=== PATIENT | female | born 1995 | race Caucasian/White ===

== ENCOUNTER 2021-03-08 11:14 | Outpatient (REF) | payer OTHER, SELFPAY | END 2021-03-08 11:15 | disposition home or self-care (01) | LOC: HO.LAB 11:14 | PROVIDERS: Visit Provider Internal Medicine | DX: Z20.822 Contact with and (suspected) exposure to COVID-19 (principal) | CPT/HCPCS: C9803; U0003; U0005 ==

== ENCOUNTER 2021-05-04 05:03 | Emergency (ER) | payer OTHER, SELFPAY ==
--- NOTE | ~2021-05-04 | US_ITS ---
EXAMINATION: US OBSTETRICAL ULTRASOUND CLINICAL INFORMATION: New . Right lower quadrant pain. COMPARISON: None. LMP: 03/26/2021. Gestational age by maternal dates is 5 weeks 4 days. Estimated date of delivery by maternal dates is 12/31/2021. TECHNIQUE: Ultrasound of the maternal pelvis is performed using transabdominal and transvaginal transducers. Transvaginal imaging is performed due to inadequate visualization transabdominally. M-mode Doppler is also performed. FINDINGS: There is a single intrauterine gestational sac with visible yolk sac. Embryo not visible at this time. Average sac dimension is 0.77 cm consistent with 5 weeks 3 days. MATERNAL ADNEXA: The right maternal ovary measures 4.3 x 1.4 x 1.6 cm. There is a probable corpus luteum within the right ovary measuring 1.8 x 1.3 x 1.4 cm. The left maternal ovary measures 2.3 x 1.4 x 2.3 cm. There is no significant maternal adnexal mass. There is small amount of ascites in the cul-de-sac. US/US OB transvaginal IMPRESSION: 1. Single intrauterine gestational sac with visible yolk sac. Embryo not visible at this time. 2. Average gestational sac dimension 5 weeks 3 days size. 3. Probable right adnexal corpus luteum under 2 cm. Small amount of pelvic ascites.
--- NOTE | ~2021-05-04 | US_ITS ---
EXAMINATION: US OBSTETRICAL ULTRASOUND CLINICAL INFORMATION: New . Right lower quadrant pain. COMPARISON: None. LMP: 03/26/2021. Gestational age by maternal dates is 5 weeks 4 days. Estimated date of delivery by maternal dates is 12/31/2021. TECHNIQUE: Ultrasound of the maternal pelvis is performed using transabdominal and transvaginal transducers. Transvaginal imaging is performed due to inadequate visualization transabdominally. M-mode Doppler is also performed. FINDINGS: There is a single intrauterine gestational sac with visible yolk sac. Embryo not visible at this time. Average sac dimension is 0.77 cm consistent with 5 weeks 3 days. MATERNAL ADNEXA: The right maternal ovary measures 4.3 x 1.4 x 1.6 cm. There is a probable corpus luteum within the right ovary measuring 1.8 x 1.3 x 1.4 cm. The left maternal ovary measures 2.3 x 1.4 x 2.3 cm. There is no significant maternal adnexal mass. There is small amount of ascites in the cul-de-sac. US/US OB <= 14 weeks fetus IMPRESSION: 1. Single intrauterine gestational sac with visible yolk sac. Embryo not visible at this time. 2. Average gestational sac dimension 5 weeks 3 days size. 3. Probable right adnexal corpus luteum under 2 cm. Small amount of pelvic ascites.
[2021-05-04 05:18] VITALS: BP 123/66; PULSE 73; RESP 16; TEMP 36.7; O2SAT 100; BMI 21.9
--- NOTE | 2021-05-04 05:25 | ED_ITS ---
HPI - Nausea/Vomiting/Diarrhea General Chief complaint: Nausea/Vomiting/Diarrhea Stated complaint: Vomiting Time Seen by Provider: 05/04/21 05:21 Source: patient Mode of arrival: ambulatory Limitations: no limitations History of Present Illness MD elicited complaint: nausea, vomiting and abdominal pain Onset (ago): day(s) (4) Description of vomiting: watery Associated nausea: Yes Associated abdominal pain: Yes Location of pain: periumbilical and RLQ Pain consistency: constant Severity: severe Quality: aching Exacerbating factors: movement Relieving factors: none Context: other (one time in past this occurred and she found out she was ) Associated symptoms: loss of appetite, malaise, nausea/vomiting and weakness Related Data Allergies Allergy/AdvReac Type Severity Reaction Status Date / Time No Known Allergies Allergy Unverified 03/12/20 19:01 [No Known Allergies*] Review of Systems Review of Systems: Constitutional : No Weight loss, No Fever, No Chills, pos malaise, pos fatigue ENT/Mouth : No sore throat, No Rhinorrhea Eyes: No Swelling, No Redness Cardiovascular : No Chest Pain, No SOB, NoEdema Respiratory : No Cough, No Sputum, No Wheezing Gastrointestinal : Positive Nausea, Positive Vomiting, no Diarrhea, positive abdominal Pain, No Hematochezia, No Melena Genitourinary : No Dysuria, No Urinary Frequency, No Hematuria, No Urgency Musculoskeletal : No joint pain, No Myalgias, No Joint Swelling Skin : No Skin Lesions, No rash Neuro : pos Weakness, No Numbness, No Dizziness, No Headache Psych : No Anxiety/Panic, No Depression Heme/Lymph: No Bruising, No Lymphadenopathy Endocrine : No Polyuria, No Polydipsia All other systems reviewed and are negative. Gastrointestinal: Gastrointestinal: Reports nausea PMFSH Past Medical History Medical History (Updated 05/04/21 @ 06:30 by Sofia Lopez DO) Bipolar 1 disorder Social History Social History (Updated 05/04/21 @ 05:45 by Sofia Lopez DO) Patient Tobacco Use Status: Never used Tobacco Substance Use Type: Marijuana Substance Use Frequency: Occasionally Advance Directives: No Patient : No Physical Exam Vital Signs: Vital Signs: Last Vital Signs Temp 98.0 F 05/04/21 05:18 Pulse 73 05/04/21 05:18 Resp 16 11/09/21 05:18 BP 123/66 05/04/21 05:18 Pulse Ox 100 05/04/21 05:18 Body Mass Index 21.9 Appearance: Alert. Oriented X3. Mild acute distress. Eyes: Pupils equal, round and reactive to light. ENT: Pharynx moderate dry MM Neck: Normal inspection. Neck supple. CVS: Normal heart rate and rhythm. Pulses normal. Respiratory: No respiratory distress. Breath sounds normal. Abdomen: Soft and moderate ttp in RLQ some guarding, mild rebound Skin: Skin warm and dry. Normal skin color. Normal skin turgor. Extremities: No lower extremity edema. No calf ttp Neuro: Oriented X 3. No motor deficit. No sensory deficit. Course Course Course Narrative: + , possible ectopic US ordered at this time will add on type and screen signed out to Dr. Dalal pending further workup MDM - Nausea/Vomiting/Diarrhea MDM Narrative Medical decision making narrative: 25 yo female with 4 days of n/v unable to keep anything down including her medications. On exam her RLQ has moderate ttp. At this time will need labs, IVF x 2L, IV medications, test. CT scan to evaluate for appendicitis. Dispo per results and findings. Lab Data Result diagrams: 05/04/21 05:42 05/04/21 05:42 Labs: Lab Results 05/04/21 05/04/21 05/04/21 Range/Units 05:42 05:42 05:42 WBC 6.3 (4.8-10.8) X10*3/uL RBC 4.09 L (4.20-5.50) X10*6/uL Hgb 12.3 (12.0-16.0) g/dl Hct 35.8 L (37.0-47.0) % MCV 87.5 (80.0-98.0) fL MCH 30.1 (27.0-33.0) pg MCHC 34.4 (31.0-35.0) g/dl RDW 12.1 (11.0-16.0) % Plt Count 230 (160-400) X10*3/uL MPV 9.5 (9.4-12.3) fL Immature Gran % (Auto) 0.2 (0.0-0.4) % Neut % (Auto) 69.6 (45-73) % Lymph % (Auto) 24.2 (20-40) % [place] % (Auto) 5.4 (2-11) % Eos % (Auto) 0.3 (0-4) % Baso % (Auto) 0.3 (0-2) % Lymph # (Auto) 1.5 (1.2-4.9) X10*3/uL [place] # (Auto) 0.3 (0.1-1.2) X10*3/uL Eos # (Auto) 0.0 (0.0-0.4) X10*3/uL Baso # (Auto) 0.0 (0.0-0.2) X10*3/uL Abs Immat Gran (auto) 0.01 (0.00-0.03) X10*3/uL Absolute Neuts (auto) 4.4 (2.0-8.3) x10*3/uL Absolute Nucleated RBC 0.000 (0.0-0.012) X10*3/uL Nucleated RBC % (auto) 0.0 (0.0-0.2) /100WBC Sodium 138 (135-145) mmol/L Potassium 3.5 (3.3-5.1) mmol/L Chloride 105 (96-108) mmol/L Carbon Dioxide 24 (22-29) mmol/L Anion Gap 13 (12-20) BUN 16 (9-16) mg/dL Creatinine 0.80 (0.5-1.4) mg/dL Estim Creat Clear Calc 90.4 Estimated GFR > 60 Random Glucose 115 (60-115) mg/dL Calcium 10.0 (8.4-10.2) mg/dL Magnesium 1.9 (1.6-2.6) mg/dL Total Bilirubin 1.0 (0.0-1.0) mg/dL Direct Bilirubin 0.4 (0.0-0.5) mg/dL AST 13 (5-31) U/L ALT 12 (0-31) U/L Alkaline Phosphatase 45 (39-117) U/L Total Protein 7.3 (6.5-8.0) g/dL Albumin 4.7 (3.5-5.0) g/dL Lipase 27 (8-78) U/L Beta HCG, Quant 45721 mIU/mL [place] (0.60-1.20) mmol/L COVID-19 ([facility]) Negative (Negative) COVID-19 Clin Com See Note 05/04/21 Range/Units 05:49 WBC (4.8-10.8) X10*3/uL RBC (4.20-5.50) X10*6/uL Hgb (12.0-16.0) g/dl Hct (37.0-47.0) % MCV (80.0-98.0) fL MCH (27.0-33.0) pg MCHC (31.0-35.0) g/dl RDW (11.0-16.0) % Plt Count (160-400) X10*3/uL MPV (9.4-12.3) fL Immature Gran % (Auto) (0.0-0.4) % Neut % (Auto) (45-73) % Lymph % (Auto) (20-40) % [place] % (Auto) (2-11) % Eos % (Auto) (0-4) % Baso % (Auto) (0-2) % Lymph # (Auto) (1.2-4.9) X10*3/uL [place] # (Auto) (0.1-1.2) X10*3/uL Eos # (Auto) (0.0-0.4) X10*3/uL Baso # (Auto) (0.0-0.2) X10*3/uL Abs Immat Gran (auto) (0.00-0.03) X10*3/uL Absolute Neuts (auto) (2.0-8.3) x10*3/uL Absolute Nucleated RBC (0.0-0.012) X10*3/uL Nucleated RBC % (auto) (0.0-0.2) /100WBC Sodium (135-145) mmol/L Potassium (3.3-5.1) mmol/L Chloride (96-108) mmol/L Carbon Dioxide (22-29) mmol/L Anion Gap (12-20) BUN (9-16) mg/dL Creatinine (0.5-1.4) mg/dL Estim Creat Clear Calc Estimated GFR Random Glucose (60-115) mg/dL Calcium (8.4-10.2) mg/dL Magnesium (1.6-2.6) mg/dL Total Bilirubin (0.0-1.0) mg/dL Direct Bilirubin (0.0-0.5) mg/dL AST (5-31) U/L ALT (0-31) U/L Alkaline Phosphatase (39-117) U/L Total Protein (6.5-8.0) g/dL Albumin (3.5-5.0) g/dL Lipase (8-78) U/L Beta HCG, Quant mIU/mL [place] < 0.10 L (0.60-1.20) mmol/L COVID-19 ([facility]) (Negative) COVID-19 Clin Com Discharge Plan Discharge Clinical Impression: Abdominal pain, Vomiting,
[2021-05-04 05:50] LABS: MANUAL DIFF FLAG NO
[2021-05-04 05:54] LABS: Appearance Urine HAZY; Basophils Percent Auto 0.3 % (0-2); Color Urine DK YELLOW; Eosinophils Percent Auto 0.3 % (0-4); Glucose Urine UA NEG (NEG); Hematocrit 35.8 % (37.0-47.0); Hemoglobin 12.3 g/dl (12.0-16.0); Imm Gran Abs Auto 0.01 X10*3/uL (0.00-0.03); Imm Gran Pct Auto 0.2 % (0.0-0.4); Leukocyte Esterase Urine NEG (NEG); Lymphocytes Absolute Auto 1.5 X10*3/uL (1.2-4.9); Lymphocytes Percent Auto 24.2 % (20-40); Mean Corpuscular HGB Conc 34.4 g/dl (31.0-35.0); Mean Corpuscular Hemoglobin 30.1 pg (27.0-33.0); Mean Corpuscular Volume 87.5 fL (80.0-98.0); Mean Platelet Volume 9.5 fL (9.4-12.3); Monocytes Absolute Auto 0.3 X10*3/uL (0.1-1.2); Monocytes Percent Auto 5.4 % (2-11); Neutrophils Absolute Auto 4.4 x10*3/uL (2.0-8.3); Neutrophils Percent Auto 69.6 % (45-73); Nitrite Urine NEG (NEG); PH 6.5 (5.0-8.0); Platelet Count 230 X10*3/uL (160-400); Red Blood Count 4.09 X10*6/uL (4.20-5.50); Red Cell Distribution Width 12.1 % (11.0-16.0); UACC Culture Trigger NO; Urine Blood 3+ (NEG); Urine Ketones >=80 MG/DL (NEG); Urine Protein TRACE MG/DL (NEG-TRACE); White Blood Count 6.3 X10*3/uL (4.8-10.8)
[2021-05-04] MEDS: Metoclopramide HCl 10 MG/2 ML VIAL IVPUSH (06:01)
[2021-05-04] MEDS: 0.9 % Sodium Chloride 1,000 ML 999 ML IVCONT ×2 (06:01→06:09)
[2021-05-04] MEDS: diphenhydrAMINE HCL 50 MG/ML VIAL 25 MG IVPUSH (06:01)
[2021-05-04 06:10] LABS: COVID-19 Test Negative (Negative); IDNOW Serial# 9DD0AD1C
[2021-05-04 06:12] LABS: Alanine Aminotransferase 12 U/L (0-31); Albumin Level 4.7 g/dL (3.5-5.0); Alkaline Phosphatase 45 U/L (39-117); Anion Gap 13 (12-20); Aspartate Amino Transferase 13 U/L (5-31); Bilirubin Direct 0.4 mg/dL (0.0-0.5); Blood Urea Nitrogen 16 mg/dL (9-16); Carbon Dioxide 24 mmol/L (22-29); Chloride 105 mmol/L (96-108); Creatinine Clr Calc Pharmacy 90.4; Estimated Glomerular Filt Rate > 60; Glucose Random 115 mg/dL (60-115); Lipase 27 U/L (8-78); Magnesium 1.9 mg/dL (1.6-2.6); Potassium 3.5 mmol/L (3.3-5.1); Sodium 138 mmol/L (135-145); Total Protein 7.3 g/dL (6.5-8.0)
[2021-05-04 06:17] LABS: Lithium < 0.10 mmol/L (0.60-1.20)
[2021-05-04 06:18] LABS: HCG Quantitative 13534 mIU/mL
[2021-05-04 06:49] LABS: Bacteria Urine 2+ /LPF; Squamous Epithelial Cell Urine 3+ /LPF
[2021-05-04] MEDS: 0.9 % Sodium Chloride 1,000 ML 999 ML IV (07:52)
== END 2021-05-04 10:09 | disposition home or self-care (01) ==
PROVIDERS: Emergency Provider Emergency Medicine
DX: O26.891 Other specified pregnancy related conditions, first trimester (principal); R10.9 Unspecified abdominal pain; O21.9 Vomiting of pregnancy, unspecified; Z3A.01 Less than 8 weeks gestation of pregnancy; Z20.822 Contact with and (suspected) exposure to COVID-19
CPT/HCPCS: 36415; 76801; 76817; 80048; 80076; 80178; 81001; 81003; 83690; 83735; 84702; 85025; 87635; 96361; 96374; 96375; 96376; 99284; J1200; J2765

== ENCOUNTER 2021-05-04 20:23 | Emergency (ER) | payer OTHER, SELFPAY ==
[2021-05-04 21:40] VITALS: BP 111/72; PULSE 73; RESP 16; TEMP 36.8; O2SAT 100; BMI 21.7
--- NOTE | 2021-05-04 22:01 | ED.NAVMDI ---
HPI - Nausea/Vomiting/Diarrhea General Chief complaint: Nausea/Vomiting/Diarrhea Stated complaint: nausea Time Seen by Provider: 05/04/21 21:59 Source: patient and old records reviewed Mode of arrival: ambulatory Limitations: no limitations History of Present Illness MD elicited complaint: nausea and vomiting Pertinent past history: other (hyperemesis found to be 5 weeks by US in ED today ) Onset (ago): day(s) (7) Description of vomiting: food contents Associated nausea: Yes Severity: moderate Exacerbating factors: eating Relieving factors: none Context: other (prior hyperemesis) Associated symptoms: loss of appetite, malaise and nausea/vomiting Treatment prior to arrival: other (zofran without relief) Related Data Previous Rx's Medication Instructions Recorded doxylamine succinate 25 mg tablet 25 mg PO BID PRN #60 tab 05/04/21 metoclopramide HCl 10 mg tablet 10 mg PO Q6H PRN #30 tab 05/04/21 (Reglan) ondansetron HCl 4 mg tablet 4 mg PO Q8H PRN #10 tab 05/04/21 (Zofran) ondansetron HCl 4 mg tablet 4 mg PO Q8H PRN 5 Days tab 05/04/21 (Zofran) promethazine 25 mg rectal 25 mg PA Q6H PRN #12 ea 05/04/21 suppository pyridoxine (vitamin B6) 25 mg 25 mg PO BID PRN #60 tab 05/04/21 tablet Allergies Allergy/AdvReac Type Severity Reaction Status Date / Time No Known Allergies Allergy Verified 05/04/21 21:39 [No Known Allergies*] Review of Systems Review of Systems: Constitutional : No Weight loss, No Fever, No Chills ENT/Mouth : No sore throat, No Rhinorrhea Eyes: No Swelling, No Redness Cardiovascular : No Chest Pain, No SOB, NoEdema Respiratory : No Cough, No Sputum, No Wheezing Gastrointestinal : Positive Nausea, Positive Vomiting,no Diarrhea, positive abdominal Pain, No Hematochezia, No Melena Genitourinary : No Dysuria, No Urinary Frequency, No Hematuria, No Urgency Musculoskeletal : No joint pain, No Myalgias, No Joint Swelling Skin : No Skin Lesions, No rash Neuro : No Weakness, No Numbness, No Dizziness, No Headache Psych : No Anxiety/Panic, No Depression Gastrointestinal: Gastrointestinal: Reports nausea PMFSH Past Medical History Attestation statement: The following information was validated with the patient. Medical History Bipolar 1 disorder Social History Social History Alcohol intake: never Patient Tobacco Use Status: Never used Tobacco Substance Use Type: Marijuana Patient : Yes Physical Exam Vital Signs: Vital Signs: Last Vital Signs Temp 98.2 F 05/04/21 21:40 Pulse 73 05/04/21 21:40 Resp 16 05/04/21 21:40 BP 111/72 05/04/21 21:40 Pulse Ox 100 05/04/21 21:40 Body Mass Index 21.7 Appearance: Alert. Oriented X3. No acute distress. Eyes: Pupils equal, round and reactive to light. ENT: Pharynx normal. Neck: Normal inspection. Neck supple. CVS: Normal heart rate and rhythm. Pulses normal. Respiratory: No respiratory distress. Breath sounds normal. Abdomen: Soft and non-tender. Skin: Skin warm and dry. Normal skin color. Normal skin turgor. Extremities: No lower extremity edema. Neuro: Oriented X 3. No motor deficit. No sensory deficit. Course Course Course Narrative: patient requesting no IV and just PO pills MDM - Nausea/Vomiting/Diarrhea MDM Narrative Medical decision making narrative: 25 yo female with hx of bipolar and hypermesis in prior pregnancies found to be 5 weeks today confirmed IUP on US in our ED today - she reports the zofran she was sent home with is not working - at this time will try B6/doxylamine then offer reglan and phenergan suppositories if no response. Encourage OB follow up. Discharge Plan Discharge Clinical Impression: Hyperemesis gravidarum Patient Disposition: Home, Self-Care Instructions: Hyperemesis Gravidarum (ED) Additional Instructions: return to ED for any worsening symptoms or concerns take the B6 and doxylamine daily you can add on zofran if that doesn't work use reglan and if the vomiting is severe - PA phenergan Prescriptions: New promethazine 25 mg suppository 25 mg PA Q6H PRN (Reason: nausea and vomiting) Qty: 12 RF: 0 metoclopramide HCl [Reglan] 10 mg tablet 10 mg PO Q6H PRN (Reason: nausea and vomiting) Qty: 30 RF: 0 pyridoxine (vitamin B6) 25 mg tablet 25 mg PO BID PRN (Reason: nausea and vomiting) Qty: 60 RF: 0 doxylamine succinate 25 mg tablet 25 mg PO BID PRN (Reason: nausea and vomiting) Qty: 60 RF: 0 No Action ondansetron HCl [Zofran] 4 mg tablet 4 mg PO Q8H PRN (Reason: nausea and vomiting) 5 Days RF: 0 ondansetron HCl [Zofran] 4 mg tablet 4 mg PO Q8H PRN (Reason: nausea and vomiting) Qty: 10 RF: 0
[2021-05-04] MEDS: diphenhydrAMINE HCL 25 MG TABLET PO (22:38)
[2021-05-04] MEDS: Metoclopramide HCl 5 MG TABLET PO (22:38)
== END 2021-05-04 22:42 | disposition home or self-care (01) ==
LOC: HO.ED 22:18
PROVIDERS: Emergency Provider Emergency Medicine; PCP Pediatrics
DX: O21.0 Mild hyperemesis gravidarum (principal); Z3A.01 Less than 8 weeks gestation of pregnancy; O21.9 Vomiting of pregnancy, unspecified
CPT/HCPCS: 99283; Q0163

== ENCOUNTER 2021-05-22 02:53 | Emergency (ER) | payer OTHER, SELFPAY ==
[2021-05-22 03:14] VITALS: BP 140/54; PULSE 86; RESP 16; TEMP 36.5; O2SAT 97; BMI 21.2
[2021-05-22] MEDS: ondansetron HCL 4 MG/2 ML VIAL IVPUSH ×2 (03:31→05:51)
[2021-05-22] MEDS: 0.9 % Sodium Chloride 1,000 ML 999 ML IV ×2 (03:31→05:51)
[2021-05-22 03:32] LABS: MANUAL DIFF FLAG NO
[2021-05-22 03:33] LABS: Basophils Percent Auto 0.2 % (0-2); Eosinophils Percent Auto 0.3 % (0-4); Hematocrit 35.1 % (37.0-47.0); Hemoglobin 12.1 g/dl (12.0-16.0); Imm Gran Abs Auto 0.02 X10*3/uL (0.00-0.03); Imm Gran Pct Auto 0.2 % (0.0-0.4); Lymphocytes Absolute Auto 1.8 X10*3/uL (1.2-4.9); Lymphocytes Percent Auto 19.1 % (20-40); Mean Corpuscular HGB Conc 34.5 g/dl (31.0-35.0); Mean Corpuscular Hemoglobin 30.1 pg (27.0-33.0); Mean Corpuscular Volume 87.3 fL (80.0-98.0); Mean Platelet Volume 9.9 fL (9.4-12.3); Monocytes Absolute Auto 0.4 X10*3/uL (0.1-1.2); Monocytes Percent Auto 4.6 % (2-11); Neutrophils Absolute Auto 7.2 x10*3/uL (2.0-8.3); Neutrophils Percent Auto 75.6 % (45-73); Platelet Count 231 X10*3/uL (160-400); Red Blood Count 4.02 X10*6/uL (4.20-5.50); Red Cell Distribution Width 11.9 % (11.0-16.0); White Blood Count 9.5 X10*3/uL (4.8-10.8)
[2021-05-22 03:35] LABS: Appearance Urine HAZY; Color Urine YELLOW; Glucose Urine UA NEG (NEG); Leukocyte Esterase Urine TRACE (NEG); Nitrite Urine NEG (NEG); PH 8.5 (5.0-8.0); Specific Gravity - Urine 1.015 (1.005-1.025); UACC Culture Trigger YES; Urine Blood 2+ (NEG); Urine Ketones NEG (NEG); Urine Protein TRACE MG/DL (NEG-TRACE)
[2021-05-22 03:38] LABS: UPreg QC Valid YES; Urine Pregnancy POSITIVE (NEGATIVE)
[2021-05-22 03:46] LABS: Amorphous Sediment Urine 2+ /LPF; Bacteria Urine 2+ /LPF; Mucus Urine 2+ /LPF; Squamous Epithelial Cell Urine 2+ /LPF
--- NOTE | 2021-05-22 03:49 | ED.GENADULT ---
HPI - General Adult General Chief complaint: General Medical Stated complaint: 8 weeks preg, cant stop vomiting Time Seen by Provider: 05/22/21 03:05 Source: patient Mode of arrival: ambulatory History of Present Illness HPI narrative: 25-year-old female, , LMP 03/26/2021 and recent ultrasound approximately 1 week ago presents with persistent nausea and vomiting despite trying multiple antiemetics. Although she did have nausea and vomiting during her 1st she states that this is ended up being far worse. She denies any vaginal spotting beyond what she has been experiencing at baseline and has been informed that she has a small subchorionic bleed but otherwise denies any urinary pain/burning/frequency, or diarrhea. Related Data Previous Rx's Medication Instructions Recorded doxylamine succinate 25 mg tablet 25 mg PO BID PRN #60 tab 05/04/21 metoclopramide HCl 10 mg tablet 10 mg PO Q6H PRN #30 tab 05/04/21 (Reglan) ondansetron HCl 4 mg tablet 4 mg PO Q8H PRN #10 tab 05/04/21 (Zofran) ondansetron HCl 4 mg tablet 4 mg PO Q8H PRN 5 Days tab 05/04/21 (Zofran) promethazine 25 mg rectal 25 mg CO Q6H PRN #12 ea 05/04/21 suppository pyridoxine (vitamin B6) 25 mg 25 mg PO BID PRN #60 tab 05/04/21 tablet cephalexin 500 mg capsule 500 mg PO Q12H 5 Days #10 cap 05/22/21 ondansetron HCl 4 mg tablet 4 mg PO Q8H PRN #14 tab 05/22/21 (Zofran) pyridoxine (vitamin B6) 25 mg 25 mg PO TID 14 Days #42 tab 05/22/21 tablet Allergies Allergy/AdvReac Type Severity Reaction Status Date / Time No Known Allergies Allergy Verified 05/04/21 21:39 [No Known Allergies*] Review of Systems Review of Systems: Pertinent positives and negatives as stated in HPI 10 point review of systems is otherwise negative. [facility] Past Medical History Source: nursing notes reviewed Medical History Bipolar 1 disorder Social History Social History Alcohol intake: never Patient Tobacco Use Status: Never used Tobacco Use of substances other than those prescribed or required for medical reasons: No Substance Use Type: Marijuana Advance Directives: No Advance Directives Information Provided: Yes Patient : Yes Physical Exam Vital Signs: Vital Signs: Last Vital Signs Temp 97.6 F 05/22/21 06:17 Pulse 67 05/22/21 06:17 Resp 14 05/22/21 06:17 BP 105/64 05/22/21 06:17 Pulse Ox 100 05/22/21 06:17 Body Mass Index 21.2 VITAL SIGNS: Reviewed. GENERAL: Well developed, well nourished, in no acute distress. HEAD: Normocephalic/atraumatic EYES: PERRLA, EOMI OROPHARYNX: no oral lesions noted, posterior pharynx clear, dry mucosa NECK: Supple, no adenopathy LUNGS: Normal breath sounds. No adventitious sounds or accessory muscle use. SpO2<97> CARDIOVASCULAR: Regular rate and rhythm without noted murmurs ABDOMEN: Soft, non-tender, non-distended with bowel sounds. MUSCULOSKELETAL: No tenderness, deformities, or effusions noted on gross inspection. EXTREMITIES: No cyanosis, clubbing or edema. SKIN: Inspection of the skin reveals no rashes NEUROLOGIC: Alert and oriented x 4. Strength and sensation to light touch were grossly intact x 4. Course Course Course Narrative: 25-year-old female with history and clinical presentation consistent with hyperemesis and likely corresponding mild dehydration. Will attempt to use combination antiemetics as well as fluid hydration and p.o. challenge. Review of all investigations consistent with UTI and dehydration. At receiving combination antiemetics as well as 2 L of fluid hydration and initial antibiotics for the UTI patient is feeling much better and is stable for discharge to home. All results and findings as well as plan for treating her nausea have been discussed with the patient at bedside. Medical Decision Making Lab Data Result diagrams: 05/22/21 03:26 05/22/21 03:26 Labs: Lab Results 05/22/21 05/22/21 05/22/21 Range/Units 03:21 03:21 03:26 WBC 9.5 (4.8-10.8) X10*3/uL RBC 4.02 L (4.20-5.50) X10*6/uL Hgb 12.1 (12.0-16.0) g/dl Hct 35.1 L (37.0-47.0) % MCV 87.3 (80.0-98.0) fL MCH 30.1 (27.0-33.0) pg MCHC 34.5 (31.0-35.0) g/dl RDW 11.9 (11.0-16.0) % Plt Count 231 (160-400) X10*3/uL MPV 9.9 (9.4-12.3) fL Immature Gran % (Auto) 0.2 (0.0-0.4) % Neut % (Auto) 75.6 H (45-73) % Lymph % (Auto) 19.1 L (20-40) % [place] % (Auto) 4.6 (2-11) % Eos % (Auto) 0.3 (0-4) % Baso % (Auto) 0.2 (0-2) % Lymph # (Auto) 1.8 (1.2-4.9) X10*3/uL [place] # (Auto) 0.4 (0.1-1.2) X10*3/uL Eos # (Auto) 0.0 (0.0-0.4) X10*3/uL Baso # (Auto) 0.0 (0.0-0.2) X10*3/uL Abs Immat Gran (auto) 0.02 (0.00-0.03) X10*3/uL Absolute Neuts (auto) 7.2 (2.0-8.3) x10*3/uL Absolute Nucleated RBC 0.000 (0.0-0.012) X10*3/uL Nucleated RBC % (auto) 0.0 (0.0-0.2) /100WBC Sodium (135-145) mmol/L Potassium (3.3-5.1) mmol/L Chloride (96-108) mmol/L Carbon Dioxide (22-29) mmol/L Anion Gap (12-20) BUN (9-16) mg/dL Creatinine (0.5-1.4) mg/dL Estim Creat Clear Calc Estimated GFR Random Glucose (60-115) mg/dL Calcium (8.4-10.2) mg/dL Total Bilirubin (0.0-1.0) mg/dL AST (5-31) U/L ALT (0-31) U/L Alkaline Phosphatase (39-117) U/L Total Protein (6.5-8.0) g/dL Albumin (3.5-5.0) g/dL Urine Color YELLOW Urine Appearance HAZY Urine pH 8.5 H (5.0-8.0) Ur Specific [place] 1.015 (1.005-1.025) Urine Protein TRACE (NEG-TRACE) MG/DL Urine Glucose (UA) NEG (NEG) MG/DL Urine Ketones NEG (NEG) MG/DL Urine Blood 2+ H (NEG) Urine Nitrite NEG (NEG) Ur Leukocyte Esterase TRACE H (NEG) Urine RBC 1-4 (0) /HPF Urine WBC 1-4 (0-4) /HPF Ur Squamous Epith Cells 2+ /LPF Amorphous Sediment 2+ /LPF Urine Bacteria 2+ /LPF Urine Mucus 2+ /LPF Urine Test POSITIVE H (NEGATIVE) 05/22/21 Range/Units 03:26 WBC (4.8-10.8) X10*3/uL RBC (4.20-5.50) X10*6/uL Hgb (12.0-16.0) g/dl Hct (37.0-47.0) % MCV (80.0-98.0) fL MCH (27.0-33.0) pg MCHC (31.0-35.0) g/dl RDW (11.0-16.0) % Plt Count (160-400) X10*3/uL MPV (9.4-12.3) fL Immature Gran % (Auto) (0.0-0.4) % Neut % (Auto) (45-73) % Lymph % (Auto) (20-40) % [place] % (Auto) (2-11) % Eos % (Auto) (0-4) % Baso % (Auto) (0-2) % Lymph # (Auto) (1.2-4.9) X10*3/uL [place] # (Auto) (0.1-1.2) X10*3/uL Eos # (Auto) (0.0-0.4) X10*3/uL Baso # (Auto) (0.0-0.2) X10*3/uL Abs Immat Gran (auto) (0.00-0.03) X10*3/uL Absolute Neuts (auto) (2.0-8.3) x10*3/uL Absolute Nucleated RBC (0.0-0.012) X10*3/uL Nucleated RBC % (auto) (0.0-0.2) /100WBC Sodium 139 (135-145) mmol/L Potassium 3.8 (3.3-5.1) mmol/L Chloride 105 (96-108) mmol/L Carbon Dioxide 24 (22-29) mmol/L Anion Gap 14 (12-20) BUN 10 (9-16) mg/dL Creatinine 0.72 (0.5-1.4) mg/dL Estim Creat Clear Calc 100.5 Estimated GFR > 60 Random Glucose 111 (60-115) mg/dL Calcium 9.7 (8.4-10.2) mg/dL Total Bilirubin 0.5 (0.0-1.0) mg/dL AST 11 (5-31) U/L ALT 9 (0-31) U/L Alkaline Phosphatase 41 (39-117) U/L Total Protein 7.1 (6.5-8.0) g/dL Albumin 4.4 (3.5-5.0) g/dL Urine Color Urine Appearance Urine pH (5.0-8.0) Ur Specific [place] (1.005-1.025) Urine Protein (NEG-TRACE) MG/DL Urine Glucose (UA) (NEG) MG/DL Urine Ketones (NEG) MG/DL Urine Blood (NEG) Urine Nitrite (NEG) Ur Leukocyte Esterase (NEG) Urine RBC (0) /HPF Urine WBC (0-4) /HPF Ur Squamous Epith Cells /LPF Amorphous Sediment /LPF Urine Bacteria /LPF Urine Mucus /LPF Urine Test (NEGATIVE) Discharge Plan Discharge Clinical Impression: Hyperemesis gravidarum, UTI (urinary tract infection) Patient Disposition: Home, Self-Care Instructions: Hyperemesis Gravidarum (ED) Additional Instructions: 1. Increase fluid hydration especially with water. 2. Take the vitamin B6 scheduled throughout the day and then take the Zofran in between those scheduled events. 3. Stick to a very bland diet. 4. Follow-up with your OB Return to the ER for worsening symptoms. Prescriptions: New pyridoxine (vitamin B6) 25 mg tablet 25 mg PO TID 14 Days Qty: 42 RF: 0 ondansetron HCl [Zofran] 4 mg tablet 4 mg PO Q8H PRN (Reason: nausea and vomiting) Qty: 14 RF: 0 cephalexin 500 mg capsule 500 mg PO Q12H 5 Days Qty: 10 RF: 0 No Action promethazine 25 mg suppository 25 mg CO Q6H PRN (Reason: nausea and vomiting) Qty: 12 RF: 0 metoclopramide HCl [Reglan] 10 mg tablet 10 mg PO Q6H PRN (Reason: nausea and vomiting) Qty: 30 RF: 0 pyridoxine (vitamin B6) 25 mg tablet 25 mg PO BID PRN (Reason: nausea and vomiting) Qty: 60 RF: 0 doxylamine succinate 25 mg tablet 25 mg PO BID PRN (Reason: nausea and vomiting) Qty: 60 RF: 0 ondansetron HCl [Zofran] 4 mg tablet 4 mg PO Q8H PRN (Reason: nausea and vomiting) 5 Days RF: 0 ondansetron HCl [Zofran] 4 mg tablet 4 mg PO Q8H PRN (Reason: nausea and vomiting) Qty: 10 RF: 0 Referrals: Sherlyn Riggs MD [Primary Care Provider] - 2 days
[2021-05-22 03:51] LABS: Alanine Aminotransferase 9 U/L (0-31); Albumin Level 4.4 g/dL (3.5-5.0); Alkaline Phosphatase 41 U/L (39-117); Anion Gap 14 (12-20); Aspartate Amino Transferase 11 U/L (5-31); Bilirubin Total 0.5 mg/dL (0.0-1.0); Blood Urea Nitrogen 10 mg/dL (9-16); Calcium 9.7 mg/dL (8.4-10.2); Carbon Dioxide 24 mmol/L (22-29); Chloride 105 mmol/L (96-108); Creatinine Clr Calc Pharmacy 100.5; Estimated Glomerular Filt Rate > 60; Glucose Random 111 mg/dL (60-115); Potassium 3.8 mmol/L (3.3-5.1); Sodium 139 mmol/L (135-145); Total Protein 7.1 g/dL (6.5-8.0)
[2021-05-22 05:11] VITALS: BP 117/61; PULSE 70; RESP 14; TEMP 36.7; O2SAT 100
--- NOTE | 2021-05-22 05:25 | PC.NURSE ---
pt still has slight nausea. provider is aware. Will continue to monitor. no new orders at this time.
--- NOTE | 2021-05-22 05:54 | PC.NURSE ---
medicated per mar.
--- NOTE | 2021-05-22 06:15 | PC.NURSE ---
Vitamin B6 unavailable in Er. Called pharmacy will be bring down.
[2021-05-22 06:17] VITALS: BP 105/64; PULSE 67; RESP 14; TEMP 36.4; O2SAT 100
[2021-05-22] MEDS: Pyridoxine HCl (Vitamin B6) 50 MG TABLET PO (06:21)
[2021-05-22] MEDS: cefTRIAXone sodium 1 GM in 0.9 % Sodium Chloride 50 ML IV (07:03)
== END 2021-05-22 07:46 | disposition home or self-care (01) ==
PROVIDERS: Emergency Provider Student in an Organized Health Care Education/Training Program; PCP Pediatrics
DX: O21.0 Mild hyperemesis gravidarum (principal); O23.41 Unspecified infection of urinary tract in pregnancy, first trimester; N39.0 Urinary tract infection, site not specified; Z3A.08 8 weeks gestation of pregnancy
CPT/HCPCS: 36415; 80053; 81001; 81025; 85025; 87086; 96361; 96365; 96375; 96376; 99284; J0696; J2405

== ENCOUNTER 2021-05-23 04:32 | Observation (INO) | payer OTHER, SELFPAY ==
--- NOTE | ~2021-05-23 | US_ITS ---
EXAMINATION: US OBSTETRICAL ULTRASOUND CLINICAL INFORMATION: Intractable nausea. History of subchorionic bleed. COMPARISON: Pelvic ultrasound from 05/04/2021. LMP: 03/26/2021. Gestational age by maternal dates is 8 weeks, 2 days. Estimated date of delivery by maternal dates is 12/31/2021. TECHNIQUE: Sonographic imaging of the pelvis was performed using a transabdominal transducer. FINDINGS: There is a single intrauterine gestational sac with visible yolk sac, single fetus, and cardiac activity. Amniotic fluid volume is normal. Small amount of crescentic subchorionic hemorrhage is observed posteriorly. There is a posterior placenta. Cervix is closed with length of approximately 3.8 cm. The myometrial echotexture is normal. No evidence of leiomyoma. HR: 169 beats per minute. CRL (crown rump length): 1.73 cm (8 weeks, 2 days) CARRIE (estimated date of delivery): 01/01/2020. MATERNAL ADNEXA: The ovaries have normal size and echotexture. No adnexal mass. The right ovary is 3.2 x 1.6 x 1.5 cm and left ovary 3 x 2.4 x 1.6 cm. FREE FLUID: None detected. US/US OB <= 14 weeks fetus IMPRESSION: * Single viable intrauterine gestation is observed. There is concordance between the clinical and ultrasound dates. The ultrasound estimated gestational age is 8 weeks, 2 days. * Small subchorionic hemorrhage is present.
[2021-05-23 04:49] VITALS: BMI 21.4
[2021-05-23 04:54] VITALS: BP 108/73; PULSE 83; RESP 16; TEMP 36.7; O2SAT 99
[2021-05-23 06:01] VITALS: BP 124/54; PULSE 65
[2021-05-23 06:02] VITALS: BP 124/56; PULSE 73
[2021-05-23 06:03] VITALS: BP 116/70; PULSE 84
[2021-05-23 06:04] VITALS: BP 124/54; PULSE 65; RESP 22
[2021-05-23] MEDS: 0.9 % Sodium Chloride 1,000 ML 999 ML IV (06:12)
--- NOTE | 2021-05-23 06:30 | ED.NAVMDI ---
HPI - Nausea/Vomiting/Diarrhea General Chief complaint: Nausea/Vomiting/Diarrhea Stated complaint: Vomiting/?Dehydrated Time Seen by Provider: 05/23/21 05:45 Source: patient Mode of arrival: ambulatory History of Present Illness HPI Narrative: 25-year-old female , who presents with ent nausea and vomiting despite attempting multiple antiemetics. Patient states this that she is feeling very stressed out and has become even more anxious. She endorses feeling overwhelmed and ?does not know what to do?. Otherwise, she states feeling lightheaded but otherwise endorses baseline vaginal spotting which she attributes to her recent findings on ultrasound of a subchorionic bleed and denies any shortness of breath/chest pain/palpitations. Related Data Previous Rx's Medication Instructions Recorded doxylamine succinate 25 mg tablet 25 mg PO BID PRN #60 tab 05/04/21 metoclopramide HCl 10 mg tablet 10 mg PO Q6H PRN #30 tab 05/04/21 (Reglan) ondansetron HCl 4 mg tablet 4 mg PO Q8H PRN #10 tab 05/04/21 (Zofran) ondansetron HCl 4 mg tablet 4 mg PO Q8H PRN 5 Days tab 05/04/21 (Zofran) promethazine 25 mg rectal 25 mg TN Q6H PRN #12 ea 05/04/21 suppository pyridoxine (vitamin B6) 25 mg 25 mg PO BID PRN #60 tab 05/04/21 tablet cephalexin 500 mg capsule 500 mg PO Q12H 5 Days #10 cap 05/22/21 ondansetron HCl 4 mg tablet 4 mg PO Q8H PRN #14 tab 05/22/21 (Zofran) pyridoxine (vitamin B6) 25 mg 25 mg PO TID 14 Days #42 tab 05/22/21 tablet Allergies Allergy/AdvReac Type Severity Reaction Status Date / Time No Known Allergies Allergy Verified 05/04/21 21:39 [No Known Allergies*] Review of Systems Review of Systems: Pertinent positives and negatives as stated in HPI 10 point review of systems is otherwise negative. [facility] Past Medical History Source: nursing notes reviewed Medical History Bipolar 1 disorder Social History Social History Alcohol intake: never Patient Tobacco Use Status: Never used Tobacco Substance Use Type: Marijuana Advance Directives: No Patient : Yes Physical Exam Vital Signs: Vital Signs: Last Vital Signs Temp 98.1 F 05/23/21 04:54 Pulse 65 05/23/21 06:04 Resp 22 H 05/23/21 06:04 BP 124/54 L 05/23/21 06:04 Pulse Ox 99 05/23/21 04:54 Body Mass Index 21.4 VITAL SIGNS: Reviewed. GENERAL: Well developed, well nourished, in no acute distress. HEAD: Normocephalic/atraumatic EYES: PERRLA, EOMI OROPHARYNX: no oral lesions noted, posterior pharynx clear and non-erythematous without noted tonsillar enlargement/erythema/exudates NECK: Supple, no adenopathy LUNGS: Normal breath sounds. No adventitious sounds or accessory muscle use. SpO2<99> CARDIOVASCULAR: Regular rate and rhythm without noted murmurs ABDOMEN: Soft, non-tender, non-distended with bowel sounds. SKIN: Inspection of the skin reveals no rashes NEUROLOGIC: Alert and oriented x 4. Strength and sensation to light touch were grossly intact x 4. PSYCH: Anxious Course Course Course Narrative: This is a 25-year-old female with history and clinical presentation of persistent vomiting despite different antiemetics. Patient had a full laboratory workup yesterday and was tolerating saltines and water at the time of discharge, and there did not appear to be objective findings to suggest persistent, ongoing nausea and vomiting and no evidence to suggest dehydration (ketones in the urine or electrolyte abnormalities). 0604: I discussed the case with Dr. Ingram who recommends IV fluids, repeat ultrasound, TSH, Rh status. If unable to control vomiting patient will need to be admitted. Signed out to Dr Dalal. Discharge Plan Discharge Clinical Impression: Intractable vomiting with nausea Patient Disposition: Still a Patient Prescriptions: No Action promethazine 25 mg suppository 25 mg TN Q6H PRN (Reason: nausea and vomiting) Qty: 12 RF: 0 metoclopramide HCl [Reglan] 10 mg tablet 10 mg PO Q6H PRN (Reason: nausea and vomiting) Qty: 30 RF: 0 pyridoxine (vitamin B6) 25 mg tablet 25 mg PO BID PRN (Reason: nausea and vomiting) Qty: 60 RF: 0 doxylamine succinate 25 mg tablet 25 mg PO BID PRN (Reason: nausea and vomiting) Qty: 60 RF: 0 pyridoxine (vitamin B6) 25 mg tablet 25 mg PO TID 14 Days Qty: 42 RF: 0 ondansetron HCl [Zofran] 4 mg tablet 4 mg PO Q8H PRN (Reason: nausea and vomiting) Qty: 14 RF: 0 cephalexin 500 mg capsule 500 mg PO Q12H 5 Days Qty: 10 RF: 0 ondansetron HCl [Zofran] 4 mg tablet 4 mg PO Q8H PRN (Reason: nausea and vomiting) 5 Days RF: 0 ondansetron HCl [Zofran] 4 mg tablet 4 mg PO Q8H PRN (Reason: nausea and vomiting) Qty: 10 RF: 0
--- NOTE | 2021-05-23 06:52 | PC.NURSE ---
0620 patient refused blood to be drawn told this PCT the blood can be drawn later when I'm ready
--- NOTE | 2021-05-23 06:53 | ECG_ITS ---
Test Reason : CHECK QTC Blood Pressure : / mmHG Vent. Rate : 075 BPM Atrial Rate : 075 BPM P-R Int : 130 ms QRS Dur : 090 ms QT Int : 402 ms P-R-T Axes : 030 008 031 degrees QTc Int : 448 ms Sinus rhythm with occasional Premature ventricular complexes Otherwise normal ECG No previous ECGs available Referred By: Fannie Edwards Electronically Signed By:KELTON DIANA MD
--- NOTE | 2021-05-23 07:02 | PC.NURSE ---
Pt alert and oriented x4, calm and cooperative. Pt denies blood to be drawn at this time, pt educated on needing lab draw and pt continues to refuse now.
[2021-05-23 07:07] LABS: Influenza A PCR NEGATIVE (Negative); Influenza B PCR NEGATIVE (Negative); Resp Syncy Virus RNA Qual PCR NEGATIVE (Negative); SARS COV2 PCR INHOUSE NEGATIVE (Negative)
--- NOTE | 2021-05-23 07:15 | PM.GYNCN ---
DIAMOND MERCHANT - CN: HPI Data of Consult Consult date: 05/23/21 Primary Care Provider: Unknown Physician Consult Narrative Narrative: I was consulted on Staci Benoit was is a 25 year old female presented emergency room with nausea and vomiting despite attempting multiple antiemetics.? The patient has baseline vaginal spotting, last ultrasound was done on 05/04 which showed a intrauterine gestation 5 weeks and 3 days of gestation making her by today at 9 weeks of gestation cc:: CC: OB [facility] Past Medical History Medical History Bipolar 1 disorder Social History Social History Alcohol intake: never Patient Tobacco Use Status: Never used Tobacco Substance Use Type: Marijuana Advance Directives: No Patient : Yes Meds Allergies Allergy/AdvReac Type Severity Reaction Status Date / Time No Known Allergies Allergy Verified 05/04/21 21:39 [No Known Allergies*] [facility] MERCHANT Physical Exam Vitals Vital signs: Temp Pulse Resp BP Pulse Ox 98.1 F 65 22 H 124/54 L 99 05/23/21 04:54 05/23/21 06:04 05/23/21 06:04 05/23/21 06:04 05/23/21 04:54 Body Mass Index 21.4 Assessment and Plan (1) Nausea/vomiting in : Status: Acute Since the patient has tried vitamin B6, Zofran, Phenergan, and Reglan and did not control her nausea and vomiting, I Recommended to Dr. Beckford on the phone the following recommendation: TSH, CBC, electrolytes, liver function test, repeat ultrasound, Rh status, if negative RhoGAM 300 mcg IM, Pepcid and Compazine IV and IV hydration, if ketones are present in the urine check urine dip Q void till ketones clear, if lab abnormalities are suspicious for cholelithiasis, or hyperthyroidism, treat accordingly, if nausea and vomiting is not controlled , the patient would need admission. I did not seenor examine the patient, I was consulted on the phone regarding the patient's management.
[2021-05-23] MEDS: Famotidine/PF 20 MG/2 ML VIAL IVPUSH (07:26)
[2021-05-23] MEDS: ondansetron HCL 4 MG/2 ML VIAL IVPUSH (09:16)
[2021-05-23] MEDS: Prochlorperazine Edisylate 10 MG/2 ML VIAL 5 MG IV (12:17)
[2021-05-23] MEDS: 0.9 % Sodium Chloride 1,000 ML 999 ML IVCONT (12:17)
--- NOTE | 2021-05-23 12:20 | PC.NURSE ---
no nausea, dry heaves or vomiting noted since this rn arrival at 0700. pt medicated per emar.
--- NOTE | 2021-05-23 13:05 | P.HPOB_ITS ---
[employer] - H&P: HPI History of Present Illness Narrative: Staci Benoit is a 25 year old female who presented emergency room with nausea and vomiting in spite of treatment with multiple antiemetics including Zofran, Phenergan, vitamin B6, Reglan and doxylamine. The patient came emergency room today was given Reglan IV and Pepcid then Compazine was attempted still the patient was vomiting. Ultrasound showed 8 weeks and 2 days of gestation intrauterine with a small subchorionic hemorrhage. Rh positive. The patient had a CBC and chemistry done yesterday was normal. TSH ordered today is still pending. Since having some vaginal spotting no other associated symptoms, abdominal pain fever or chills. OB PMF Past Medical History Medical History Bipolar 1 disorder Social History Social History Alcohol intake: never Patient Tobacco Use Status: Never used Tobacco Substance Use Type: Marijuana Advance Directives: No Patient : Yes Meds Allergies Allergy/AdvReac Type Severity Reaction Status Date / Time No Known Allergies Allergy Verified 05/04/21 21:39 [No Known Allergies*] Active Medications: Current Medications Promethazine HCl 12.5 mg/ (Sodium Chloride) 50.5 mls @ 202 mls/hr IV QID PRN PRN Reason: Nausea and Vomiting Home Medications Medication Instructions Recorded Confirmed Last Taken Type clonazepam 1 mg tablet 1 tab PO BID PRN 05/23/21 05/23/21 Unknown History [employer] Physical Exam Vitals Vital signs: Temp Pulse Resp BP Pulse Ox 98.1 F 65 22 H 124/54 L 99 05/23/21 04:54 05/23/21 06:04 05/23/21 06:04 05/23/21 06:04 05/23/21 04:54 Body Mass Index 21.4 Assessment and Plan (1) Hyperemesis gravidarum: Status: Acute Will admit with IV hydration, and dip Q void till ketones clear if positive, CBC, chemistry, AST ALT, calcium, magnesium try Phenergan IV 0.5 mg Q 6 hours p.r.n. nausea and vomiting. If not control nausea and vomiting will attempt treatment with Dramamine 50 mg in 50 cc to 4-6 p.r.n.. Since Reglan, , Zofran, Compazine, vitamin B6 and doxylamine did not control nausea and vomiting it Phenergan and/or Dramamine does not stop nausea and vomiting, next step will be to treat with methyl prednisolone 16 mg mg IV Q 8 for 3 days and then will taper over 2 weeks, if abnormal electrolytes will correct accordingly, any suspicion of cholelithiasis/cholecystitis or appendicitis will treat accordingly. 14:13> received a call from Daniella Yousif RN patient is requesting to leave AMA I asked if the patient can wait for 15 minutes, for me to come in to relationship counselor regarding the consequences of leaving AMA with dehydration and hyperemesis gravidarum, the patient stated that she is not willing to wait and is willing to speak on the phone instead; I spoke with the patient on the phone, and I explained to the patient the risks of not treating hyperemesis gravidarum and its potential consequences including but not limited to : Dehydration, e lectrolyte imbalance, acute kidney injury, negative impact on , spontaneous , arrhythmias , and others. I recommended for the patient to stay in-house for IV hydration, antiemetic treatment; explained to the patient the plan of treatment including CBC, chemistry, liver function test, rule out possible sources of infections : Urine, appendicitis, cholelithiasis, cholecystitis and others, treat with IV antiemetic, if fails treat with corticosteroid. Patient stated that she is not willing to stay in house would like to go back home, Explained to the patient to come back in case of persistent of nausea and vomiting. The patient verbalized understanding and signed the against medical advice paperwork.
--- NOTE | 2021-05-23 13:27 | PHA.MEDREC ---
Pharmacy Consult ? Medication Reconciliation Pharmacy has completed the medication reconciliation. Patient reports not taking abx yet or doxylamine since just filled yesterday. Karla LangleyD
--- NOTE | 2021-05-23 13:32 | PHA.MEDREC ---
Pharmacy Consult ? Medication Reconciliation Pharmacy has completed the medication reconciliation. PT has not started abx for uti yet. Unclear if she is still taking clonazepam since she was very anxious during time of med rec. Patient reported stopping lithium and oxcarbazepine due to (self stopped, per pt md never got back to her). Karla LangleyD
[2021-05-23 13:39] LABS: Alanine Aminotransferase 9 U/L (0-31); Aspartate Amino Transferase 14 U/L (5-31); Calcium 9.5 mg/dL (8.4-10.2); Magnesium 1.8 mg/dL (1.6-2.6)
--- NOTE | 2021-05-23 13:53 | PC.NURSE ---
contact made with md mccray states no anxiety med at this time
--- NOTE | 2021-05-23 15:57 | MHC.CM.PN ---
Pt signed out AMA prior to CM assessment
== END 2021-05-23 14:30 | disposition other institution (70) ==
LOC: HO.ED 06:44 → HO.EDOVER 13:00
PROVIDERS: Admitting Provider Obstetrics & Gynecology; Emergency Provider Student in an Organized Health Care Education/Training Program; Visit Provider Obstetrics & Gynecology
DX: O21.0 Mild hyperemesis gravidarum (principal); O26.851 Spotting complicating pregnancy, first trimester; O99.341 Other mental disorders complicating pregnancy, first trimester; F32.9 Major depressive disorder, single episode, unspecified; O99.321 Drug use complicating pregnancy, first trimester; F12.20 Cannabis dependence, uncomplicated; Z3A.09 9 weeks gestation of pregnancy; Z79.899 Other long term (current) drug therapy; Z53.29 Procedure and treatment not carried out because of patient's decision for other reasons
CPT/HCPCS: 0241U; 36415; 76801; 82310; 83735; 84443; 84450; 84460; 84702; 86900; 86901; 93005; 96361; 96374; 96375; 99218; 99284; 99285; J2405

== ENCOUNTER 2021-08-10 00:10 | Emergency (ER) | payer MEDICARE, MEDICAID, SELFPAY ==
[2021-08-10 00:18] VITALS: BP 128/83; PULSE 101; RESP 16; TEMP 36.4; O2SAT 100; BMI 20.9
--- NOTE | 2021-08-10 00:24 | PC.NURSE ---
pt has no vaginal discharge. pt can feel the fetus moving. pt is sticking her fingers down her throat to relieve the nausea feeling.
[2021-08-10 01:36] LABS: MANUAL DIFF FLAG NO
[2021-08-10] MEDS: 0.9 % Sodium Chloride 1,000 ML 999 ML IV (01:36)
[2021-08-10] MEDS: ondansetron HCL 4 MG/2 ML VIAL IVPUSH ×2 (01:36→04:22)
[2021-08-10 01:37] LABS: Basophils Percent Auto 0.2 % (0-2); Eosinophils Percent Auto 0.1 % (0-4); Hemoglobin 11.7 g/dl (12.0-16.0); Imm Gran Abs Auto 0.02 X10*3/uL (0.00-0.03); Imm Gran Pct Auto 0.2 % (0.0-0.4); Lymphocytes Absolute Auto 1.6 X10*3/uL (1.2-4.9); Lymphocytes Percent Auto 17.1 % (20-40); Mean Corpuscular HGB Conc 35.5 g/dl (31.0-35.0); Mean Corpuscular Hemoglobin 30.6 pg (27.0-33.0); Mean Corpuscular Volume 86.4 fL (80.0-98.0); Mean Platelet Volume 10.2 fL (9.4-12.3); Monocytes Absolute Auto 0.3 X10*3/uL (0.1-1.2); Monocytes Percent Auto 3.4 % (2-11); Neutrophils Absolute Auto 7.4 x10*3/uL (2.0-8.3); Platelet Count 235 X10*3/uL (160-400); Red Blood Count 3.82 X10*6/uL (4.20-5.50); Red Cell Distribution Width 11.9 % (11.0-16.0); White Blood Count 9.4 X10*3/uL (4.8-10.8)
--- NOTE | 2021-08-10 01:56 | ED_ITS ---
HPI - Nausea/Vomiting/Diarrhea General Chief complaint: Nausea/Vomiting/Diarrhea Stated complaint: 19 Weeks /Vomiting Time Seen by Provider: 08/10/21 01:28 Source: patient Mode of arrival: ambulatory Limitations: no limitations History of Present Illness HPI Narrative: 25-year-old female 19 weeks came in for evaluation of nausea and vomiting. Patient's symptoms started 2 days ago, patient declined any possibility of ingesting bad food, no sick contacts, no recent travel, no recent use of antibiotic. Patient usually gets vomiting with her current and also with her previous , patient had multiple ED visits for similar presentation. Patient complaining of epigastric pain only with vomiting, no vaginal bleeding or spotting, no abdominal cramps colics. Related Data Home Medications Medication Instructions Recorded Confirmed clonazepam 1 mg tablet 1 tab PO BID PRN 05/23/21 05/23/21 Previous Rx's Medication Instructions Recorded doxylamine succinate 25 mg tablet 25 mg PO BID PRN #60 tab 05/04/21 metoclopramide HCl 10 mg tablet 10 mg PO Q6H PRN #30 tab 05/04/21 (Reglan) promethazine 25 mg rectal 25 mg UT Q6H PRN #12 ea 05/04/21 suppository cephalexin 500 mg capsule 500 mg PO Q12H 5 Days #10 cap 05/22/21 ondansetron HCl 4 mg tablet 4 mg PO Q8H PRN #14 tab 05/22/21 (Zofran) pyridoxine (vitamin B6) 25 mg 25 mg PO TID 14 Days #42 tab 05/22/21 tablet ondansetron 4 mg disintegrating 4 mg PO BEDTIME PRN 3 Days #10 tab 08/10/21 tablet Allergies Allergy/AdvReac Type Severity Reaction Status Date / Time No Known Allergies Allergy Verified 05/04/21 21:39 [No Known Allergies*] Review of Systems Review of Systems: All other systems are reviewed and are negative Constitutional: Reports as per HPI and Reports no additional constitutional complaints Eyes: Reports as per HPI and Reports no additional eye complaints Reports system reviewed and no additional complaints, except as documented Cardiovascular: Reports as per HPI and Reports no additional cardiovascular complaints Respiratory: Reports as per HPI and Reports no additional respiratory complaints Gastrointestinal: Reports as per HPI and Reports no additional gastrointestinal complaints Genitourinary: Reports no additional female genitourinary complaints Musculoskeletal: Reports no additional musculoskeletal complaints Skin/Breast: Reports system reviewed and no additional complaints, except as docu Psychiatric: Reports no additional psychiatric complaints Endocrine: Reports no additional endocrine complaints Hematologic/Lymphatic: Reports no additional hematologic/lymphatic complaints Allergic/Immunologic: Reports no additional allergic/immunologic complaints Reports system reviewed and no additional complaints, except as documented and Reports Abnormal speech present [facility] Past Medical History Medical History Bipolar 1 disorder Social History Social History Alcohol intake: never Patient Tobacco Use Status: Never used Tobacco Substance Use Type: Marijuana Advance Directives: No Patient : Yes Physical Exam Vital Signs: Vital Signs: Last Vital Signs Temp 97.6 F 08/10/21 00:18 Pulse 101 H 08/10/21 00:18 Resp 16 08/10/21 00:18 BP 128/83 08/10/21 00:18 Pulse Ox 100 08/10/21 00:18 BMI result Body Mass Index 20.9 vital signs have been reviewed as appeared to be correct. Blood pressure normal. Heart rate elevated. Respiration rate normal. Temperature normal. Oxygen saturation normal. Appearance: Alert. Oriented X3. No acute distress. Head: Normal external exam. Normocephalic. Atraumatic. No Pérez signs noted. No raccoon eyes noted Eyes: PERRLA. EOMI. Conjunctiva and sclera normal. Eyelids normal. ENT: TM's Normal. Pharynx normal. Uvula midline. Moist mucous membranes. No trismus noted. No drooling noted. No muffled voice noted. Neck: Normal inspection. Neck supple. FROM. No adenopathy. Thyroid Normal. No meningeal signs. No neck mass noted. CVS: Normal heart rate and rhythm. Heart sound normal. No murmurs noted. Pulses normal throughout. Respiratory: No respiratory distress. Painless inspiration. Breath sounds normal. No wheezes/rales/rhonchi noted. Chest nontender. No accessory muscle usage noted or decreased air movement noted. Abdomen: Soft , mild epigastric tenderness. Bowel sounds normal in all 4 quadrants. No distention noted. No organomegaly noted. No visible injury noted. Pelvic exam: Deferred per patient patient has no vaginal discharge or bleeding or abdominal contractions. Back: No CVA tenderness. Full range of motion noted. Skin: Skin warm and dry. Normal skin color. Normal skin turgor. No rashes/lesions/lacerations noted. Extremities: No lower extremity edema. Extremities exhibit normal range of motion. Extremities nontender. Neuro: Oriented X 3. Cranial nerve exam: II-XII are grossly intact No motor deficit. No sensory deficit. Reflexes normal. Course Course Course Narrative: assessment and plan. 25-year-old female always having vomiting problem in her pregnancies, came in with vomiting, symptoms were controlled with IV hydration and Zofran. Patient now is calm able to take a nap in the emergency department, patient is able to tolerate fluid intake. Will discharge to follow-up with PCP. MDM - Nausea/Vomiting/Diarrhea Lab Data Attestation: I reviewed the patient's lab results. Result diagrams: 08/10/21 01:32 08/10/21 01:32 Labs: Lab Results 08/10/21 08/10/21 Range/Units 01:32 01:32 WBC 9.4 (4.8-10.8) X10*3/uL RBC 3.82 L (4.20-5.50) X10*6/uL Hgb 11.7 L (12.0-16.0) g/dl Hct 33.0 L (37.0-47.0) % MCV 86.4 (80.0-98.0) fL MCH 30.6 (27.0-33.0) pg MCHC 35.5 H (31.0-35.0) g/dl RDW 11.9 (11.0-16.0) % Plt Count 235 (160-400) X10*3/uL MPV 10.2 (9.4-12.3) fL Immature Gran % (Auto) 0.2 (0.0-0.4) % Neut % (Auto) 79.0 H (45-73) % Lymph % (Auto) 17.1 L (20-40) % Childress % (Auto) 3.4 (2-11) % Eos % (Auto) 0.1 (0-4) % Baso % (Auto) 0.2 (0-2) % Lymph # (Auto) 1.6 (1.2-4.9) X10*3/uL [place] # (Auto) 0.3 (0.1-1.2) X10*3/uL Eos # (Auto) 0.0 (0.0-0.4) X10*3/uL Baso # (Auto) 0.0 (0.0-0.2) X10*3/uL Abs Immat Gran (auto) 0.02 (0.00-0.03) X10*3/uL Absolute Neuts (auto) 7.4 (2.0-8.3) x10*3/uL Absolute Nucleated RBC 0.000 (0.0-0.012) X10*3/uL Nucleated RBC % (auto) 0.0 (0.0-0.2) /100WBC Sodium 137 (135-145) mmol/L Potassium 3.9 (3.3-5.1) mmol/L Chloride 105 (96-108) mmol/L Carbon Dioxide 19 L (22-29) mmol/L Anion Gap 17 (12-20) BUN 10 (9-16) mg/dL Creatinine 0.70 (0.5-1.4) mg/dL Estim Creat Clear Calc 103.4 Estimated GFR > 60 Random Glucose 149 H (60-115) mg/dL Calcium 9.9 (8.4-10.2) mg/dL Total Bilirubin 0.6 (0.0-1.0) mg/dL Direct Bilirubin 0.2 (0.0-0.5) mg/dL AST 14 (5-31) U/L ALT 7 (0-31) U/L Alkaline Phosphatase 48 (39-117) U/L Total Protein 6.9 (6.5-8.0) g/dL Albumin 3.9 (3.5-5.0) g/dL Lipase 31 (8-78) U/L Discharge Plan Discharge Clinical Impression: Nausea/vomiting in Patient Disposition: Home, Self-Care Instructions: Nausea and Vomiting in (ED) Prescriptions: New ondansetron 4 mg tablet,disintegrating 4 mg PO BEDTIME PRN (Reason: nausea and vomiting) 3 Days Qty: 10 0RF No Action promethazine 25 mg suppository 25 mg UT Q6H PRN (Reason: nausea and vomiting) Qty: 12 0RF metoclopramide HCl [Reglan] 10 mg tablet 10 mg PO Q6H PRN (Reason: nausea and vomiting) Qty: 30 0RF doxylamine succinate 25 mg tablet 25 mg PO BID PRN (Reason: nausea and vomiting) Qty: 60 0RF pyridoxine (vitamin B6) 25 mg tablet 25 mg PO TID 14 Days Qty: 42 0RF ondansetron HCl [Zofran] 4 mg tablet 4 mg PO Q8H PRN (Reason: nausea and vomiting) Qty: 14 0RF Rx Instructions: Take the Zofran between your B6 doses. cephalexin 500 mg capsule 500 mg PO Q12H 5 Days Qty: 10 0RF Rx Instructions: Patient didnt start taking yet for uti clonazepam 1 mg tablet 1 tab PO BID PRN (Reason: Anxiety) 0RF Referrals: Physician,Unknown J [Primary Care Provider] - 2 days
[2021-08-10 01:57] LABS: Alanine Aminotransferase 7 U/L (0-31); Albumin Level 3.9 g/dL (3.5-5.0); Alkaline Phosphatase 48 U/L (39-117); Anion Gap 17 (12-20); Aspartate Amino Transferase 14 U/L (5-31); Bilirubin Direct 0.2 mg/dL (0.0-0.5); Bilirubin Total 0.6 mg/dL (0.0-1.0); Blood Urea Nitrogen 10 mg/dL (9-16); Calcium 9.9 mg/dL (8.4-10.2); Carbon Dioxide 19 mmol/L (22-29); Chloride 105 mmol/L (96-108); Creatinine Clr Calc Pharmacy 103.4; Estimated Glomerular Filt Rate > 60; Glucose Random 149 mg/dL (60-115); Lipase 31 U/L (8-78); Potassium 3.9 mmol/L (3.3-5.1); Sodium 137 mmol/L (135-145); Total Protein 6.9 g/dL (6.5-8.0)
[2021-08-10 04:22] VITALS: BP 109/55; PULSE 75; RESP 18; TEMP 36.7; O2SAT 99
== END 2021-08-10 04:32 | disposition home or self-care (01) ==
PROVIDERS: Emergency Provider Emergency Medicine
DX: O21.9 Vomiting of pregnancy, unspecified (principal); Z3A.19 19 weeks gestation of pregnancy
CPT/HCPCS: 36415; 80048; 80076; 83690; 85025; 96361; 96374; 96376; 99284; J2405

== ENCOUNTER 2024-11-22 17:01 | Emergency (ER) | payer MEDICARE, MEDICAID, SELFPAY ==
[2024-11-22 17:11] VITALS: BP 110/60; PULSE 115; O2SAT 96
[2024-11-22 17:14] VITALS: BP 110/53; PULSE 106; RESP 16; TEMP 36.8; O2SAT 99
--- OUTSIDE RECORDS SUMMARY | 2024-11-22 17:20 | XMS_ITS | Encounter Summary ---
Author Organization [facility] Address [address] [place] [address] Care Team Providers Care [employer] Tutor Name Role Phone Daniele Villafuerte MD Primary Care Provider [phone] Encounter Details Date Type Department Care Team (Late st Contact Info) Description 11/10/2024 Lab Requisition [facility] - Main Lab [address] [place] [address] Carline Gutierrez [address] [place] [phone] Other custodial (current) drug therapy Social History Tobacco Use Types Packs/Day Years Used Date Smoking Tobacco: Never Smokeless Tobacco: Never Alcohol Use Standard Drinks/Week Comments No 0 (1 standard drink = 0.6 oz pur e alcohol) Comments No Sex and Gender Information Value Date Recorded Sex Assigned at Not on file Legal Sex Female 7:26 AM EST Gender Identity Not on file Sexual Orientation Not on file documented as of this encounter Plan of Treatment Not on file documented as of this encounter Procedures Procedure Name Priority Date/Time Associated Diagnosis Comments LITHIUM LEVEL Routine 11/10/2024 7:00 AM EDT Other custodial (current) drug therapy documented in this encounter Results * (ABNORMAL) [place] level (11/10/2024 7:00 AM EDT) [place] Level 1.7(HH) 0.6 - 1.2 mEq/L LAB CHEMISTRY METHOD 11/10/2024 9:47 AM EDT [facility] Blood Venous blood specimen / Unknown Venipuncture / Unknown 11/10/2024 7:00 AM EDT 11/10/2024 8:36 AM EDT us Carline Matt LAB BLOOD ORDERABLES Final Res ult [facility] [address] [place] [address], documented in this encounter Visit Diagnoses Diagnosis Other watermelon inspector (current) drug therapy documented in this encounter Care Teams High [employer] Tutor Relationship Specialty Start Date End Date Daniele Villafuerte MD [address] [place] [address] PCP - General Internal Medicine 01/05/22 documented as of this encounter
[2024-11-22 17:24] VITALS: BMI 24.8
[2024-11-22 17:48] LABS: MANUAL DIFF FLAG NO
[2024-11-22 17:53] LABS: Appearance Urine Clear; Color Urine Yellow; Glucose Urine UA Negative (Negative); Leukocyte Esterase Urine Small (1+) (Negative); Nitrite Urine Negative (Negative); PH 7.5 (5.0-9.0); UMIC TRIGGER UACC YES; Urine Blood Negative (Negative); Urine Ketones Negative (Negative); Urine Protein Negative (Neg-Trace)
[2024-11-22 17:53] LABS: Basophils Percent Auto 0.4 % (0-2); Eosinophils Absolute Auto 0.3 X10*3/uL (0.0-0.4); Hematocrit 28.9 % (37.0-47.0); Hemoglobin 9.7 g/dl (12.0-16.0); Imm Gran Abs Auto 0.09 X10*3/uL (0.00-0.03); Imm Gran Pct Auto 1.2 % (0.0-0.4); Lymphocytes Absolute Auto 1.6 X10*3/uL (1.2-4.9); Lymphocytes Percent Auto 22.5 % (20-40); Mean Corpuscular HGB Conc 33.6 g/dl (31.0-35.0); Mean Corpuscular Hemoglobin 30.5 pg (27.0-33.0); Mean Corpuscular Volume 90.9 fL (80.0-98.0); Mean Platelet Volume 9.7 fL (9.4-12.3); Monocytes Absolute Auto 0.8 X10*3/uL (0.1-1.2); Monocytes Percent Auto 11.5 % (2-11); Neutrophils Absolute Auto 4.4 x10*3/uL (2.0-8.3); Neutrophils Percent Auto 60.4 % (45-73); Platelet Count 209 X10*3/uL (160-400); Red Blood Count 3.18 X10*6/uL (4.20-5.50); Red Cell Distribution Width 12.4 % (11.0-16.0); White Blood Count 7.2 X10*3/uL (4.8-10.8)
[2024-11-22 18:00] LABS: Amphetamine Screen Urine Not Detected (Not Detect); Barbiturates, Urine Not Detected (Not Detect); Benzodiazepines Screen Urine Not Detected (Not Detect); Buprenorphine Scr Not Detected (Not Detect); Cannabinoid Screen Urine Not Detected (Not Detect); Cocaine Screen Urine Not Detected (Not Detect); Fentanyl, urine Not Detected (Not Detect); Methadone Screen, Urine Not Detected (Not Detect); Opiate Screen Urine Not Detected (Not Detect); Oxycodone Screen Urine Not Detected (Not Detect); Phencyclidine Screen Urine Not Detected (Not Detect)
[2024-11-22 18:01] LABS: Bacteria Urine None Seen (None Seen); Hyaline Casts Urine 0-2 /LPF (0-2); RBC Urine 0-2 /HPF (0-2); Squamous Epithelial Cell Urine 0-2 /HPF (0-2); UACC Culture Trigger YES; WBC Urine 0-5 /HPF (0-5)
[2024-11-22 18:10] LABS: Alanine Aminotransferase 22 U/L (0-31); Albumin Level 3.7 g/dL (3.5-5.0); Alkaline Phosphatase 51 U/L (39-117); Anion Gap 12 (12-20); Aspartate Amino Transferase 18 U/L (5-31); Bilirubin Total 0.1 mg/dL (0.0-1.0); Blood Urea Nitrogen 10 mg/dL (9-16); Carbon Dioxide 28 mmol/L (22-29); Chloride 106 mmol/L (96-108); Creatinine Clr Calc Pharmacy 106.8; Estimated Glomerular Filt Rate > 60; Glucose Random 114 mg/dL (60-115); Potassium 3.8 mmol/L (3.3-5.1); Sodium 142 mmol/L (135-145)
[2024-11-22 18:27] LABS: B Type Natriuretic Peptide 27 pg/mL (<100)
[2024-11-22 18:28] LABS: Lipase 18 U/L (8-78)
--- NOTE | 2024-11-22 18:31 | ED.ABDPAIN ---
HPI - Abdominal Pain General Chief Complaint: Abdominal Pain Stated Complaint: abd pain, bilat foot pain Time Seen by Provider: 11/22/24 18:03 Source: patient and EMS Mode of arrival: EMS Limitations: no limitations History of Present Illness ED Provider: HPI narrative: 29-year-old woman presenting with epigastric abdominal pain for the past 3 days and also bilateral feet swelling for the past 2 days she is from [facility] for audio hallucinations, started on asenapine, and reports diarrhea and feeling gassy, vaginal bleeding, discharge has not reported, denies being , no fevers or chills. Denies ongoing drug use or alcohol use. MD elicited complaint: abdominal pain Related Data Home Medications ?Medication ?Instructions ?Recorded ?Confirmed clonazepam 1 mg tablet 1 tab PO BID PRN Anxiety 05/23/21 05/23/21 Previous Rx's ?Medication ?Instructions ?Recorded doxylamine succinate 25 mg tablet 25 mg PO BID PRN nausea and 05/04/21 vomiting #60 tabs metoclopramide HCl 10 mg tablet 10 mg PO Q6H PRN nausea and 05/04/21 (Reglan) vomiting #30 tabs promethazine 25 mg rectal 25 mg MS Q6H PRN nausea and 05/04/21 suppository vomiting #12 ea cephalexin 500 mg capsule 500 mg PO Q12H 5 days #10 caps 05/22/21 ondansetron HCl 4 mg tablet 4 mg PO Q8H PRN nausea and 05/22/21 (Zofran) vomiting #14 tabs pyridoxine (vitamin B6) 25 mg 25 mg PO TID 14 days #42 tabs 05/22/21 tablet ondansetron 4 mg disintegrating 4 mg PO BEDTIME PRN nausea and 08/10/21 tablet vomiting 3 days #10 tabs omeprazole 20 mg capsule,delayed 20 mg PO DAILY #30 caps 11/22/24 release Allergies Allergy/AdvReac Type Severity Reaction Status Date / Time No Known Allergies Allergy Verified 11/22/24 17:25 [No Known Allergies*] Review of Systems Constitutional: Reports as per HPI [facility] Past Medical History Medical History Bipolar 1 disorder Social History Social History Alcohol intake: never Patient Tobacco Use Status: Never used Tobacco Substance Use Type: Marijuana Advance Directives: No Advance Directives Information Provided: No Physical Exam ED Vital Signs: Vital Signs - 24 hr 11/22/24 17:14 11/22/24 18:40 Temperature 98.3 F 97.3 F Pulse Rate 106 H 107 H Respiratory Rate 16 18 Blood Pressure 110/53 L 101/51 L Pulse Oximetry 99 98 Oxygen Delivery Method Room Air Room Air BMI result Body Mass Index 24.8 Const Other: ? Gen: Overall well-appearing patient ? HEENT: PERRLA, EOMI, MMM, ? Neck: Supple, no LAD ? CV: RRR, no obvious murmurs appreciated ? Resp: No wheezing rales rhonchi no stridor moving air well ? Abd: Bowel sounds are present, Epigastric tenderness, negative Moon's sign, no tenderness in the lower quadrants ? MSK: dependent leg edema, no pitting edema, ? Skin: Warm, dry, intact, ? Neuro: Alert and oriented x3, moving upper and lower extremities symmetrically, no obvious facial asymmetry noted Medical Decision Making Medical Decision Making [facility] Narrative: Patient started on antipsychotic medication that is sometimes presents with GI issues in the approximate 30% of the time when I looked it up on up-to-date with dyspepsia, diarrhea, blood work did not reveal any evidence of LFTs elevation or lipase elevation to suspect cholecystitis or pancreatitis or hepatitis, no evidence for SBO and we will check make sure she is not and no tenderness or lower quadrant to suspect appendicitis or ovarian pathology, as far as her lower extremity edema, she has very minimal dependent leg edema, cutting down on salt, fluid intake and elevating her legs or tightness socks on compression stockings something that I would recommend. There is really no need for medical management for this. There is no underlying evidence for cellulitis or DVT Or CHF. Differential Diagnosis Differential Diagnoses: The differential diagnosis associated with the presentation includes Cholecystitis, pancreatitis, hepatitis, gastritis, cholangitis, choledocholithiasis, SBO, Admission/Observation Consideration of admission/observation: Escalation of care including admission/observation considered Lab Data [facility] Lab Attestation statement: I reviewed the patient's lab results. 11/22/24 17:44 11/22/24 17:43 Labs: Lab Results 05/30/25 05/30/25 Range/Units 17:43 17:44 WBC 7.2 (4.8-10.8) X10*3/uL RBC 3.18 L (4.20-5.50) X10*6/uL Hgb 9.7 L (12.0-16.0) g/dl Hct 28.9 L (37.0-47.0) % MCV 90.9 (80.0-98.0) fL MCH 30.5 (27.0-33.0) pg MCHC 33.6 (31.0-35.0) g/dl RDW 12.4 (11.0-16.0) % Plt Count 209 (160-400) X10*3/uL MPV 9.7 (9.4-12.3) fL Immature Gran % (Auto) 1.2 H (0.0-0.4) % Neut % (Auto) 60.4 (45-73) % Lymph % (Auto) 22.5 (20-40) % [place] % (Auto) 11.5 H (2-11) % Eos % (Auto) 4.0 (0-4) % Baso % (Auto) 0.4 (0-2) % Lymph # (Auto) 1.6 (1.2-4.9) X10*3/uL [place] # (Auto) 0.8 (0.1-1.2) X10*3/uL Eos # (Auto) 0.3 (0.0-0.4) X10*3/uL Baso # (Auto) 0.0 (0.0-0.2) X10*3/uL Abs Immat Gran (auto) 0.09 H (0.00-0.03) X10*3/uL Absolute Neuts (auto) 4.4 (2.0-8.3) x10*3/uL Absolute Nucleated RBC 0.000 (0.0-0.012) X10*3/uL Nucleated RBC % (auto) 0.0 (0.0-0.2) /100WBC Sodium 142 (135-145) mmol/L Potassium 3.8 (3.3-5.1) mmol/L Chloride 106 (96-108) mmol/L Carbon Dioxide 28 (22-29) mmol/L Anion Gap 12 (12-20) BUN 10 (9-16) mg/dL Creatinine 0.71 (0.5-1.4) mg/dL Estim Creat Clear Calc 106.8 Estimated GFR > 60 Random Glucose 114 (60-115) mg/dL Calcium 9.0 D (8.4-10.2) mg/dL Total Bilirubin 0.1 (0.0-1.0) mg/dL AST 18 (5-31) U/L ALT 22 (0-31) U/L Alkaline Phosphatase 51 (39-117) U/L B-Natriuretic Peptide 27 (<100) pg/mL Total Protein 6.0 L (6.5-8.0) g/dL Albumin 3.7 (3.5-5.0) g/dL Lipase 18 (8-78) U/L Urine Color Yellow Urine Appearance Clear Urine pH 7.5 (5.0-9.0) Ur Specific [place] 1.010 (1.005-1.025) Urine Protein Negative (Neg-Trace) mg/dL Urine Glucose (UA) Negative (Negative) mg/dL Urine Ketones Negative (Negative) mg/dL Urine Blood Negative (Negative) Urine Nitrite Negative (Negative) Ur Leukocyte Esterase Small (1+) H (Negative) Urine RBC 0-2 (0-2) /HPF Urine WBC 0-5 (0-5) /HPF Ur Squamous Epith Cells 0-2 (0-2) /HPF Urine Bacteria None Seen (None Seen) Hyaline Casts 0-2 (0-2) /LPF Urine Opiates Screen Not Detected (Not Detect) Ur Buprenorphine Scrn Not Detected (Not Detect) ng/mL Ur Oxycodone Screen Not Detected (Not Detect) ng/mL Urine Methadone Screen Not Detected (Not Detect) ng/mL Urine Fentanyl Screen Not Detected (Not Detect) Ur Barbiturates Screen Not Detected (Not Detect) Ur Phencyclidine Scrn Not Detected (Not Detect) Ur Amphetamines Screen Not Detected (Not Detect) U Benzodiazepines Scrn Not Detected (Not Detect) Urine Cocaine Screen Not Detected (Not Detect) U Marijuana (THC) Screen Not Detected (Not Detect) Medications Administered Discontinued Medications Generic Name Dose Route Start Last Admin Trade Name Freq PRN Reason Stop Dose Admin Al Hydroxide/Mg Hydroxide 30 ml 11/22/24 18:37 11/22/24 18:59 Magnesium Hydrox/Alum Hydrox 30 Ml Oral.Susp PO 11/22/24 18:38 30 ml ONCE ONE Administration Clonazepam 1 mg 11/22/24 18:37 11/22/24 19:01 Clonazepam 1 Mg Tablet PO 11/22/24 18:38 1 mg ONCE ONE Administration Famotidine 20 mg 11/22/24 18:37 11/22/24 19:00 Famotidine 20 Mg Tablet PO 11/22/24 18:38 20 mg ONCE ONE Administration Lidocaine HCl 15 ml 11/22/24 18:37 11/22/24 18:59 Lidocaine Hcl Viscous 2 % 15 Ml Solution PO 11/22/24 18:38 15 ml ONCE ONE Administration Ondansetron HCl 4 mg 11/22/24 18:37 11/22/24 18:59 Ondansetron Odt 4 Mg Tab.Rapdis TRANSLINGU 11/22/24 18:38 4 mg ONCE ONE Administration Discharge Plan Discharge Clinical Impression: Abdominal pain, epigastric Patient Disposition: Xfer [facility] Instructions: Epigastric Pain (ED) Additional Instructions: Patient's physical examination is reassuring except for epigastric abdominal pain, she received medications for that, her blood work was completely unremarkable no evidence for pancreatitis hepatitis or gallbladder issues based on exam or blood work. She did receive Klonopin and Thorazine an emergency department per her request. is negative As far as her lower extremity swelling this is dependent leg edema, keep legs elevated when not walking, cut down on salt intake, can wear knee-high socks to prevent this as well Omeprazole 20 mg at bedtime, and asenapine can cause dyspepsia, diarrhea and gas in some patients based on up-to-date research, so it is up to the prescriber to determine if patient requires this medication. Prescriptions: New omeprazole 20 mg capsule,delayed release(DR/EC) 20 mg PO DAILY Qty: 30 0RF No Action promethazine 25 mg suppository 25 mg MS Q6H PRN (Reason: nausea and vomiting) Qty: 12 0RF metoclopramide HCl [Reglan] 10 mg tablet 10 mg PO Q6H PRN (Reason: nausea and vomiting) Qty: 30 0RF doxylamine succinate 25 mg tablet 25 mg PO BID PRN (Reason: nausea and vomiting) Qty: 60 0RF pyridoxine (vitamin B6) 25 mg tablet 25 mg PO TID 14 Days Qty: 42 0RF ondansetron HCl [Zofran] 4 mg tablet 4 mg PO Q8H PRN (Reason: nausea and vomiting) Qty: 14 0RF Rx Instructions: Take the Zofran between your B6 doses. cephalexin 500 mg capsule 500 mg PO Q12H 5 Days Qty: 10 0RF Rx Instructions: Patient didnt start taking yet for uti ondansetron 4 mg tablet,disintegrating 4 mg PO BEDTIME PRN (Reason: nausea and vomiting) 3 Days Qty: 10 0RF clonazepam 1 mg tablet 1 tab PO BID PRN (Reason: Anxiety) Print Language: Sudanese
[2024-11-22 18:40] VITALS: BP 101/51; PULSE 107; RESP 18; TEMP 36.3; O2SAT 98
[2024-11-22] MEDS: Ondansetron ODT 4 MG TAB.RAPDIS TRANSLINGU (18:59)
[2024-11-22] MEDS: Lidocaine HCl Viscous 2 % 15 ML SOLUTION PO (18:59)
[2024-11-22] MEDS: Magnesium Hydrox/Alum Hydrox 30 ML ORAL.SUSP PO (18:59)
[2024-11-22] MEDS: Famotidine 20 MG TABLET PO (19:00)
[2024-11-22] MEDS: clonazePAM 1 MG TABLET PO (19:01)
[2024-11-22] MEDS: chlorproMAZINE HCl 100 MG TABLET PO (19:32)
[2024-11-22 20:00] VITALS: BP 97/53; PULSE 86; RESP 16; TEMP 36.3; O2SAT 98
[2024-11-22 21:02] LABS: UPreg QC Valid YES; Urine Pregnancy NEGATIVE (NEGATIVE)
--- NOTE | 2024-11-22 21:55 | PC.NURSE ---
verbal nurse to nurse report given Patience, RN. [place] [facility] [place] [facility] arrives to correct recipient.
[2024-11-22 22:32] VITALS: BP 99/54; PULSE 99; RESP 16; TEMP 36.9; O2SAT 98
== END 2024-11-22 22:40 ==
PROVIDERS: Emergency Provider Emergency Medicine
DX: F31.9 Bipolar disorder, unspecified (principal); R10.13 Epigastric pain; R19.7 Diarrhea, unspecified; N89.8 Other specified noninflammatory disorders of vagina; M79.89 Other specified soft tissue disorders; Z79.899 Other long term (current) drug therapy
CPT/HCPCS: 36415; 80053; 80307; 81001; 81025; 83690; 83880; 85025; 87086; 99285

== ENCOUNTER 2024-12-30 12:13 | Inpatient (IN) | payer OTHER, SELFPAY ==
--- NOTE | ~2024-12-30 | CT_ITS ---
EXAMINATION: CT HEAD WITHOUT CONTRAST CLINICAL INFORMATION: Fall, head trauma COMPARISON: None available. TECHNIQUE: Contiguous axial imaging was performed from the skull base to vertex without intravenous administration of contrast. This CT examination was performed using dose optimization techniques as appropriate, variously including the following: *Automated exposure control *Adjustment of mA and/or kV according to patient size (this includes techniques or standardized protocols for targeted exams where dose is matched to indication/reason for exam; i.e. extremities or head) *Use of iterative reconstruction technique DLP: 656 mGY*cm FINDINGS: There is no acute ischemic change. There is no intracranial hemorrhage. There is no mass-effect or midline shift. Basal cisterns and ventricles are within normal limits for age/cerebral volume. Orbits are symmetrical and unremarkable. Paranasal sinuses and mastoid air cells are pneumatized. There are no bony abnormalities. CT/CT head/brain wo IV con IMPRESSION: No acute intracranial abnormality. Electronically signed by: Toby Jack MD 12/30/2024 03:54 PM EDT
[2024-12-30 12:19] VITALS: BP 117/79; PULSE 100; O2SAT 100
--- NOTE | 2024-12-30 12:48 | PC.NURSE ---
patient changed over by security in family room - belongings placed on [facility] [address] shelf #2. medication confiscated from patient belongings. verification form filled out. medication and form brought to pharmacy. sticker placed on patient belongings bag.
[2024-12-30 12:49] VITALS: BP 123/68; PULSE 78; RESP 14; TEMP 36.8; O2SAT 97; BMI 26.6
[2024-12-30 12:58] VITALS: BP 123/68; PULSE 78; RESP 14; TEMP 36.8; O2SAT 97
[2024-12-30 12:58] LABS: MANUAL DIFF FLAG NO
[2024-12-30 13:01] LABS: Appearance Urine Clear; Glucose Urine UA Negative (Negative); PH 7.5 (5.0-9.0); Specific Gravity - Urine 1.020 (1.005-1.025); UMIC TRIGGER UA YES
[2024-12-30 13:02] LABS: UPreg QC Valid YES
[2024-12-30 13:09] LABS: Hematocrit 31.5 % (37.0-47.0); Hemoglobin 11.0 g/dl (12.0-16.0); Imm Gran Abs Auto 0.05 X10*3/uL (0.00-0.03); Imm Gran Pct Auto 1.2 % (0.0-0.4); Lymphocytes Absolute Auto 1.5 X10*3/uL (1.2-4.9); Mean Corpuscular HGB Conc 34.9 g/dl (31.0-35.0); Mean Corpuscular Hemoglobin 30.3 pg (27.0-33.0); Mean Corpuscular Volume 86.8 fL (80.0-98.0); NRBC Abs Auto 0.000 X10*3/uL (0.0-0.012); NRBC Pct Auto 0.0 /100WBC (0.0-0.2); Red Blood Count 3.63 X10*6/uL (4.20-5.50); White Blood Count 4.3 X10*3/uL (4.8-10.8)
[2024-12-30 13:11] LABS: Cannabinoid Screen Urine Not Detected (Not Detect); Platelet Count 125 X10*3/uL (160-400)
[2024-12-30 13:12] LABS: COVID-19 Test Negative (Negative); IDNOW Serial# 55D5AD1C
[2024-12-30 13:14] LABS: Alanine Aminotransferase 7 U/L (0-31); Albumin Level 3.9 g/dL (3.5-5.0); Alkaline Phosphatase 65 U/L (39-117); Anion Gap 9 (12-20); Aspartate Amino Transferase 18 U/L (5-31); Blood Urea Nitrogen 10 mg/dL (9-16); Calcium 9.0 mg/dL (8.4-10.2); Carbon Dioxide 29 mmol/L (22-29); Chloride 108 mmol/L (96-108); Creatinine Clr Calc Pharmacy 130.4; Estimated Glomerular Filt Rate > 60; Potassium 3.9 mmol/L (3.3-5.1); Sodium 142 mmol/L (135-145); Total Protein 6.2 g/dL (6.5-8.0)
[2024-12-30 13:16] LABS: Acetaminophen LAB < 3 mcg/mL (<30); Salicylate < 5.0 mg/dL (15-30)
--- NOTE | 2024-12-30 13:17 | ED.PSYCH ---
HPI - Psych General Chief Complaint: Psychiatric Symptoms Stated Complaint: SI W/PLAN,AUD HALLUCINATIONS, VOLUNTARY PER EMS Time Seen by Provider: 12/30/24 12:23 Source: patient and RN notes reviewed Mode of arrival: ambulatory Limitations: no limitations History of Present Illness ED Provider: Daxa Davenport PA-C HPI Narrative: This is a 29-year-old female, with a past medical history of bipolar disorder, who presents emergency department via EMS with concerns of suicidal ideation with auditory hallucinations. Patient was recently [facility] for about a month. Patient states that she recently stopped taking her medications as she believes that it is only causing her worsening symptoms. She states that she feels sluggish, and states that her depression is worsening. She states that she has has a with suicidal ideations for the last several years. Multiple psychiatric inpatient hospitalizations have not helped with the suicidal ideations. She states that she is hearing voices that are telling her that she can not get rid of these voices in her head and to harm herself. Her plan to end her life is to jump out of the window. She has 2 children at home, and states that her spouse recently told her that he does not feel comfortable with her being alone in the home with her children given her symptoms. She states that 2 nights ago she did trip and fall on a children's bucket landing on her right side. She is unsure if she hit her head or lost consciousness. She reports that she has poor memory of this fall however does report she has a large bruise on her right thigh. She does report headaches, otherwise no acute changes in vision, dizziness, lightheadedness, nausea or vomiting. She is not on anticoagulation. No other complaints or concerns at this time. MD complaint: suicidal ideation, feels depressed and hallucinations Onset (ago): day(s) Duration: constant History of same: Yes Relieving factors: none Exacerbating factors: none Context: not taking psychiatric medications Associated psychiatric symptoms: depression, suicidal ideation and auditory hallucinations Associated symptoms: headache Treatments prior to arrival: none If self harm: admits thoughts of self harm and has plan Details of plan: Jump out of window Related Data Home Medications ?Medication ?Instructions ?Recorded ?Confirmed clonazepam 1 mg tablet 1 tab PO QID Anxiety 05/23/21 12/30/24 benztropine 1 mg tablet 1 mg PO Q12H 12/30/24 12/30/24 cyclobenzaprine 10 mg tablet 10 mg PO TID PRN Muscle Spasm 12/30/24 12/30/24 dextromethorphan IR 45 1 tab PO DAILY 12/30/24 12/30/24 mg-bupropion ER 105 mg biphasic tablet (Auvelity) divalproex 500 mg tablet,extended 1,000 mg PO BEDTIME 12/30/24 12/30/24 release 24 hr hydroxyzine pamoate 50 mg capsule 50 mg PO TID PRN Anxiety 12/30/24 12/30/24 levothyroxine 50 mcg tablet 50 mcg PO DAILY 12/30/24 12/30/24 linaclotide 145 mcg capsule 145 mcg PO DAILY 12/30/24 12/30/24 (Linzess) olanzapine 10 mg disintegrating 10 mg PO DAILY 12/30/24 12/30/24 tablet olanzapine 15 mg disintegrating 15 mg PO BEDTIME 12/30/24 12/30/24 tablet prazosin 2 mg capsule 2 mg PO BEDTIME 12/30/24 12/30/24 Allergies Allergy/AdvReac Type Severity Reaction Status Date / Time No Known Allergies (No Known Allergy Verified 12/30/24 12:55 Allergies*) Review of Systems Review of Systems: Yes all other systems are reviewed and are negative Constitutional: Constitutional: Reports as per [facility] Past Medical History Medical History (Updated 12/31/24 @ 15:42 by Dariusz Santos MD) Bipolar 1 disorder Social History Social History Household Members: Family Household Members Other:: Grandparents, 2 kids Housing: House Do you presently have visiting nurse or other home services: No Alcohol intake: never Patient Tobacco Use Status: Never used Tobacco Smoked in Last 30 Days: No Use of substances other than those prescribed or required for medical reasons: No Substance Use Type: Marijuana Currently Displaying Signs/Symptoms of Drug Intoxication Withdrawal: No Have you been hit, kicked, punched, or otherwise hurt by someone within the past year? If so, by whom?: No Do you feel safe in your current relationship?: Yes Is there a partner from a previous relationship who is making you feel unsafe now?: No Are you made to feel afraid or neglected: No Advance Directives: No Advance Directives Information Provided: Yes Do you have thoughts of harming others: None Do you have a plan to hurt others: No Plan Recently lost weight without trying: No Eating poorly because of decreased appetite: No Nutrition Risks: No Nutritional Risk Patient : No service: No Sexual orientation: Straight/Heterosexual Physical Exam Vital Signs: Vital Signs: Last Vital Signs Temp 97.5 F 01/02/25 07:56 Pulse 90 01/02/25 07:56 Resp 20 01/02/25 07:56 BP 109/57 L 01/02/25 07:56 Pulse Ox 100 01/02/25 07:56 O2 Del Method Room Air 01/02/25 07:56 BMI result Body Mass Index 26.6 Const: General: cooperative, comfortable and no acute distress Orientation/consciousness: patient oriented x3 Limitations: no limitations HEENT: Head: Yes normal to inspection, Yes normocephalic and Yes atraumatic Ears: hearing grossly normal bilaterally General nose exam: Normal external nose present Face and sinus: Yes normal facial exam Mouth: Normal oral and palatal mucosa present, oropharynx normal and moist mucous membranes Throat: Yes posterior oropharynx normal Eyes: General: appearance normal, both eyes and all related structures Eyelids: Yes eyelids normal Conjunctivae: conjunctivae normal Sclerae: sclerae normal Pupils: Equal, round and reactive pupils present EOM: EOMs intact bilaterally Neck: Neck: Yes normal visual inspection, Yes full ROM and Yes no lymphadenopathy Lymphatic: no lymphadenopathy noted Chest: Chest palpation & inspection: normal inspection of the chest Resp: Effort & Inspection: normal respiratory effort and able to speak in complete sentences Auscultation: clear to auscultation bilaterally, no crackles, no rales, no rhonchi and no wheezes Cardio: Rate: regular rate Rhythm: regular rhythm Heart sounds: S1 normal heart sound present and S2 normal heart sound present GI: Inspection: Yes normal to inspection Skin: General skin exam: no rashes or lesions noted Trauma: no lacerations or abrasions Wounds: no wounds Neuro: General: patient oriented x3 and moves all extremities Cranial nerves: Yes CN's II-XII intact bilaterally, Yes Facial sensation intact/muscles of mastication intact and Yes Equal, round and reactive pupils present Extrem: Other: Right lateral thigh with large 12 cm by 8 cm oval shaped hematoma noted, slight superficial abrasion noted midline to this hematoma. Tender to palpation. General: Yes normal to inspection Right upper extremity: normal to inspection Left upper extremity: normal to inspection Right lower extremity: normal to inspection Left lower extremity: normal to inspection Psych: Appearance: well kempt Mental Status: mental status grossly normal Speech and movement: Clear speech present Affect: Labile affect present, Sad affect present and Blunted affect present Attitude: Guarded attititude/behavior present Thought process: Circumstantial thought process present and Perseverating thought process present Thought content: Suicidality present and delusions Insight: Poor insight present (Psych) Judgement: Poor judgement present (Psych) NIH Stroke Scale Internal: Initial- Upon Arrival Level of Consciousness: Alert Level of Consciousness Questions: Answers both questions correctly Level of Consciousness Commands: Performs both tasks correctly Best Gaze: Normal Visual: No visual loss Facial Palsy: Normal Motor Arm (Right): No drift Motor Arm (Left): No drift Motor Leg (Right): No drift Motor Leg (Left): No drift Limb Ataxia: Absent Sensory: Normal Best Language: No aphasia Dysarthia: Normal Extinction and Inattention: No abnormality Score: 0 Course Reevaluation(s) Reevaluation #1: Time: 06:19 Date: 12/31/24 Provider: Stuart Carrillo MD Patient in physician observation for psychiatric evaluation. Patient has been in the emergency department for 18 hours.? No acute events reported overnight. No current complaints. VS stable. Patient was evaluated by the care team CARE team evaluation who felt that the patient meant IPLOC. Patient is having command auditory hallucinations telling her to kill herself but she does not have a plan. Patient is on a Section 12. Will continue to monitor. Time: 14:13 Date: 12/31/24 Provider: Staurt Carrillo MD Physician observation ended at 12:10 hours.Patient to be admitted as inpatient to psychiatry. Medications Administered Generic Name Dose Route Start Last Admin Trade Name Freq PRN Reason Stop Dose Admin Clonazepam 1 mg 12/31/24 21:00 01/02/25 15:19 Clonazepam 1 Mg Tablet PO 1 mg TID LEANDRA Administration Cyclobenzaprine HCl 10 mg 12/30/24 21:25 01/02/25 09:09 Cyclobenzaprine Hcl 10 Mg Tablet PO 10 mg TID PRN Administration Muscle Spasm Divalproex Sodium 1,500 mg 12/31/24 21:00 01/01/25 20:33 Divalproex Sodium Er 500 Mg Tab.Er.24h PO 1,500 mg BEDTIME LEANDRA Administration Levothyroxine Sodium 50 mcg 12/31/24 06:00 01/02/25 06:39 Levothyroxine Sodium 50 Mcg Tablet PO 50 mcg DAILY@0600 LEANDRA Administration [place] Carbonate 600 mg 12/31/24 21:00 01/02/25 08:42 [place]ding Carbonate Er 300 Mg Tablet.Er PO 600 mg BID LEANDRA Administration Pt (Linaclotide [ 145 mcg 12/31/24 09:00 01/02/25 08:43 Linzess] 145 Mcg PO 145 mcg Capsule) DAILY LEANDRA Administration Olanzapine 15 mg 12/30/24 21:30 01/01/25 20:32 Olanzapine 7.5 Mg Tablet PO 15 mg BEDTIME LEANDRA Administration Polyethylene Glycol 17 gm 12/31/24 14:00 01/02/25 08:44 Polyethylene Glycol 3350 17 Gm Powd.Pack PO 17 gm DAILY LEANDRA Administration Prazosin HCl 2 mg 12/30/24 21:30 01/01/25 20:33 Prazosin Hcl 1 Mg Capsule PO 2 mg BEDTIME LEANDRA Administration Protocol Discontinued Medications Generic Name Dose Route Start Last Admin Trade Name Freq PRN Reason Stop Dose Admin Benztropine Mesylate 1 mg 12/30/24 21:30 12/31/24 08:56 Benztropine Mesylate 1 Mg Tablet PO 1 mg Q12H LEANDRA Administration Clonazepam 1 mg 12/30/24 21:30 12/31/24 15:21 Clonazepam 1 Mg Tablet PO Not Given QID LEANDRA Divalproex Sodium 1,000 mg 12/30/24 21:30 12/30/24 22:02 Divalproex Sodium Er 500 Mg Tab.Er.24h PO 1,000 mg BEDTIME LEANDRA Administration Pt Own ( 1 tab 12/31/24 09:00 12/31/24 08:56 Dextromethorphan- PO 1 tab Bupropion [Auvelity] DAILY LEANDRA Administration 45-105 Mg Tablet, Ir And E Olanzapine 10 mg 12/31/24 09:00 01/02/25 08:41 Olanzapine Odt 10 Mg Tab.Rapdis TRANSLINGU 10 mg DAILY LEANDRA Administration Medical Decision Making Medical Decision Making MDM Narrative: This is a 29-year-old female, with a history of bipolar disorder, who presents emergency department with concerns of suicidal ideation, and auditory hallucination. Patient also reports that she had an episode of a visual hallucination, states that she thought she saw a gentleman walking a dog however he was just moving his arms. She did have a recent fall 2 nights ago, unsure of head strike. Endorsing some headaches. She also has a large bruise noted to her right lateral thigh. Labs reveal slight leukopenia at 4.3, H&H 11.1/31.5, chemistry with no significant electrolyte derangement. Urine with large blood, small leuk esterases and rbc's, appears to be a contaminated urine sample. U preg is negative. COVID negative. Given fall 2 nights ago, will obtain CT head to rule out any acute intracranial process. Patient needs to be evaluated by the crisis team due to auditory hallucinations and SI. 1336 - CT head and crisis eval pending 1559 - CT head negative, pending crisis eval 00:51: The care team evaluated the patient. Patient is a voluntary admission Differential Diagnosis Differential Diagnoses: The differential diagnosis associated with the presentation includes Suicidal ideation, homicidal ideation, ICH-unlikely, depression, anxiety Admission/Observation Consideration of admission/observation: Escalation of care including admission/observation considered Lab Data MDM Lab Attestation statement: I reviewed the patient's lab results. See MDM and course 12/30/24 12:50 12/30/24 12:50 Labs: Lab Results 12/30/24 Range/Units 12:50 WBC 4.3 L (4.8-10.8) X10*3/uL RBC 3.63 L (4.20-5.50) X10*6/uL Hgb 11.0 L (12.0-16.0) g/dl Hct 31.5 L (37.0-47.0) % MCV 86.8 (80.0-98.0) fL MCH 30.3 (27.0-33.0) pg MCHC 34.9 (31.0-35.0) g/dl RDW 11.9 (11.0-16.0) % Plt Count 125 L D (160-400) X10*3/uL MPV 9.4 (9.4-12.3) fL Immature Gran % (Auto) 1.2 H (0.0-0.4) % Neut % (Auto) 47.5 (45-73) % Lymph % (Auto) 34.9 (20-40) % Randolph % (Auto) 12.2 H (2-11) % Eos % (Auto) 3.3 (0-4) % Baso % (Auto) 0.9 (0-2) % Lymph # (Auto) 1.5 (1.2-4.9) X10*3/uL Randolph # (Auto) 0.5 (0.1-1.2) X10*3/uL Eos # (Auto) 0.1 (0.0-0.4) X10*3/uL Baso # (Auto) 0.0 (0.0-0.2) X10*3/uL Abs Immat Gran (auto) 0.05 H (0.00-0.03) X10*3/uL Absolute Neuts (auto) 2.0 (2.0-8.3) x10*3/uL Absolute Nucleated RBC 0.000 (0.0-0.012) X10*3/uL Nucleated RBC % (auto) 0.0 (0.0-0.2) /100WBC Sodium 142 (135-145) mmol/L Potassium 3.9 (3.3-5.1) mmol/L Chloride 108 (96-108) mmol/L Carbon Dioxide 29 (22-29) mmol/L Anion Gap 9 L (12-20) BUN 10 (9-16) mg/dL Creatinine 0.60 (0.5-1.4) mg/dL Estim Creat Clear Calc 130.4 Estimated GFR > 60 Random Glucose 99 (60-115) mg/dL Calcium 9.0 (8.4-10.2) mg/dL Total Bilirubin 0.1 (0.0-1.0) mg/dL AST 18 (5-31) U/L ALT 7 (0-31) U/L Alkaline Phosphatase 65 (39-117) U/L Total Protein 6.2 L (6.5-8.0) g/dL Albumin 3.9 (3.5-5.0) g/dL Urine Color Yellow Urine Appearance Clear Urine pH 7.5 (5.0-9.0) Ur Specific Browder 1.020 (1.005-1.025) Urine Protein Trace (Neg-Trace) mg/dL Urine Glucose (UA) Negative (Negative) mg/dL Urine Ketones Trace (Negative) mg/dL Urine Blood Large (3+) H (Negative) Urine Nitrite Negative (Negative) Ur Leukocyte Esterase Small (1+) H (Negative) Urine RBC 6-10 H (0-2) /HPF Urine WBC 0-5 (0-5) /HPF Ur Squamous Epith Cells 6-10 (0-2) /HPF Urine Bacteria Trace (None Seen) Hyaline Casts 0-2 (0-2) /LPF Urine Test NEGATIVE (NEGATIVE) Salicylates < 5.0 L (15-30) mg/dL Urine Opiates Screen Not Detected (Not Detect) Ur Buprenorphine Scrn Not Detected (Not Detect) ng/mL Ur Oxycodone Screen Not Detected (Not Detect) ng/mL Urine Methadone Screen Not Detected (Not Detect) ng/mL Urine Fentanyl Screen Not Detected (Not Detect) Acetaminophen < 3 (<30) mcg/mL Ur Barbiturates Screen Not Detected (Not Detect) Ur Phencyclidine Scrn Not Detected (Not Detect) Ur Amphetamines Screen Not Detected (Not Detect) U Benzodiazepines Scrn Not Detected (Not Detect) Urine Cocaine Screen Not Detected (Not Detect) U Marijuana (THC) Screen Not Detected (Not Detect) Ethyl Alcohol < 10 mg/dL COVID-19 (CHARLETTE) Negative (Negative) COVID-19 Clin Com See Note Radiology Impression Discussion of test interpretation with radiology: I have reviewed the radiologist's reading. Critical Care Time Critical Care Time Critical Care Time: Yes Total Critical Care Time: 35 Attestation: I have personally provided critical care time. Time includes review of lab data, radiology results, discussion with consultants, and monitoring for potential decompensation. Intervention performed as documented. Discharge Plan Discharge Clinical Impression: Suicidal ideation Patient Disposition: Admitted As Inpatient Interventions: Admission Worksheet (ED) Last Done: 12/31/24 12:11 Discharge Date/Time: 12/31/24 12:15
--- OUTSIDE RECORDS SUMMARY | 2024-12-30 13:34 | XMS_ITS | Encounter Summary ---
Author Organization [facility] Address [address] [place] [address] Care Team Providers Care Chief Librarian Work With Blind Name Role Phone Daniele Villafuerte MD Primary Care Provider [phone] Encounter Details Date Type Department Care Team (Late Contact Info) Description 11/10/2024 Lab Requisition [facility] Main Lab [address] [facility] [place] [address] Carline Gutierrez [address] [place] [phone] Other longterm (current) drug therapy Social History Tobacco Use [...] as of this encounter Plan of Treatment Upcoming Encounters Date Type Department Care Team (Late Contact Info) Description 12/31/2024 2:00 PM EDT Office Visit Adult Medicine [address] [phone] Selene Jaimes PA [address] [place] [phone] documented as of this encounter Procedures Procedure Name Priority Date/Time Associated Diagnosis Comments LITHIUM LEVEL Routine 11/10/2024 7:00 AM EDT Other longterm (current) drug therapy documented in this encounter Results * (ABNORMAL) Kelley level (11/10/2024 7:00 AM EDT) Kelley Level 1.7(HH) 0.6 - 1.2 mEq/L LAB CHEMISTRY METHOD 11/10/2024 9:47 AM EDT [facility] Blood Venous blood specimen / Unknown Venipuncture / Unknown 11/10/2024 7:00 AM EDT 11/10/2024 8:36 AM EDT us Carline Gutierrez LAB BLOOD ORDERABLES Final Res ult [facility] [address] [place] [address], documented in this encounter Visit Diagnoses Diagnosis Other longterm (current) drug therapy documented in this encounter Care Teams Chief Librarian Work With Blind Relationship Specialty Start Date End Date Daniele Villafuerte MD [address] [place] [address] PCP - General Internal Medicine 01/05/22 documented as of this encounter
--- NOTE | 2024-12-30 21:08 | MHC.CARE ---
Pt seen by [facility] in the community earlier today with a dispo of IPLOC. Pt reported SI, dissociation, hallucinations.
[2024-12-30 21:28] VITALS: BP 115/60; PULSE 92; RESP 16; TEMP 36.8; O2SAT 97
--- NOTE | 2024-12-30 22:00 | PC.NURSE ---
patient appears commonly relaxing in room asking about going inpt and having a med holiday/wash.
[2024-12-30 22:02] VITALS: BP 115/60
[2024-12-30] MEDS: OLANZapine 7.5 MG TABLET 15 MG PO (22:03)
--- NOTE | 2024-12-31 | ECG_ITS ---
Test Reason : RULE OUT PROLONGED QTC Blood Pressure : */* mmHG Vent. Rate : 93 BPM Atrial Rate : 93 BPM P-R Int : 138 ms QRS Dur : 84 ms QT Int : 336 ms P-R-T Axes : 41 47 37 degrees QTcB Int : 417 ms Normal sinus rhythm Normal ECG When compared with ECG of 23-May-2021 08:51, Premature ventricular complexes are no longer Present Referred By: Sekou Carballo Electronically Signed By: Popeye Schaeffer
[2024-12-31 06:53] VITALS: BP 101/59; PULSE 82; RESP 18; TEMP 36.3; O2SAT 99
--- NOTE | 2024-12-31 07:07 | PC.NURSE ---
Assumed care of patient at 0645, patient appears to be sleeping, respirations even and unlabored, no apaprent distress noted. Continue plan of care for IPLOC
[2024-12-31] MEDS: OLANZapine ODT 10 MG TAB.RAPDIS TRANSLINGU (08:56)
[2024-12-31] MEDS: [UNRECOGNIZED DRUG - OTHER] PO (08:56)
[2024-12-31] MEDS: LINACLOTIDE 145 MCG 145 EACH PO (08:56)
[2024-12-31] MEDS: DEXTROMETHORPHAN PO (08:56)
[2024-12-31] MEDS: BUPROPION PO (08:56)
[2024-12-31 12:26] VITALS: BP 110/72; PULSE 108; RESP 18; TEMP 36; O2SAT 100
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
[2024-12-31 13:53] VITALS: BMI 28.2
[2024-12-31 14:05] VITALS: BMI 28.2
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
[2024-12-31 20:00] VITALS: BP 117/55; PULSE 98; RESP 16; TEMP 36.6; O2SAT 98
[2024-12-31 20:32] LABS: Cholesterol 191 mg/dL (<200); HDL Cholesterol 49 mg/dL (>40); Iron 78 mcg/dL (30-160); Magnesium 2.1 mg/dL (1.6-2.6); Percent Iron Saturation 25 % (15-50); Total Iron Binding Capacity 315 mcg/dL (228-428); Triglycerides 252 mg/dL (<150); Unsaturated Iron Binding 237 ug/dL
[2024-12-31 21:00] LABS: Folate 9.3 ng/mL (> or = 4.0); Vitamin B12 681 pg/mL (200-900)
[2024-12-31 21:18] VITALS: BP 117/55
[2024-12-31] MEDS: OLANZapine 7.5 MG TABLET 15 MG PO (21:18)
[2025-01-01 07:20] VITALS: BP 95/55; PULSE 82; RESP 20; TEMP 36.4; O2SAT 99
[2025-01-01 08:20] VITALS: BP 118/74; PULSE 113
[2025-01-01] MEDS: LINACLOTIDE 145 MCG 145 EACH PO (08:22)
[2025-01-01] MEDS: OLANZapine ODT 10 MG TAB.RAPDIS TRANSLINGU (08:22)
--- NOTE | 2025-01-01 09:56 | P.PNPSI_ITS ---
Subjective Subjective Date of Service: 01/01/25 Reason For Visit: Dangerous overmedication Subjective Notes: Conditional Voluntary Medical Problems Affecting Mental Status: No Interim History: Patient notes that she is anxious and depressed. She reports no change in her mood since recent medications adjustment. She endorses passive SI without a plan. She notes positive AH with tapping and scratching sounds all day long. The voices will scream and yell her, and commanding, whenever she does not take her Zyprexa. She denies HI or VH. Medication Compliance: Yes Side effects from medications: No Attending Groups: Intermittent Review of Systems Acute medical concerns: No Mental Status Exam Mental Status Exam Narrative: Appearance: Casually dressed, adequate hygiene Behavior: Calm and cooperative throughout the interview. Eye contact is appropriate, and there are no signs of psychomotor agitation or retardation Speech: Normal volume and prosody Thought process: logical and goal-directed Thought content: SI Mood: anxious and depressed Affect: Flat SI:Reports HI:denies VH/AH:Reports AH Delusions: None Insight/judgment: Fair insight and judgment Memory/cog: Alert, oriented x 4. grossly intact to conversational testing Diagnostics Vital Signs (24Hr): Vital Signs - 24 hr 12/31/24 12:26 12/31/24 20:00 12/31/24 21:18 Temperature 96.8 F 97.9 F Pulse Rate 108 H 98 Respiratory Rate 18 16 Blood Pressure 110/72 117/55 L 117/55 L Pulse Oximetry 100 98 Oxygen Delivery Method Room Air Room Air 01/01/25 07:20 01/01/25 08:20 Temperature 97.5 F Pulse Rate 82 113 H Respiratory Rate 20 Blood Pressure 95/55 L 118/74 Pulse Oximetry 99 Oxygen Delivery Method Room Air BMI result Body Mass Index 28.2 Labs 12/30/24 12:50 12/30/24 12:50 Labs: Laboratory Results - last 48 hr 12/30/24 12/31/24 12:50 19:56 WBC 4.3 L RBC 3.63 L Hgb 11.0 L Hct 31.5 L MCV 86.8 MCH 30.3 MCHC 34.9 RDW 11.9 Plt Count 125 L D MPV 9.4 Immature Gran % (Auto) 1.2 H Neut % (Auto) 47.5 Lymph % (Auto) 34.9 [place] % (Auto) 12.2 H Eos % (Auto) 3.3 Baso % (Auto) 0.9 Lymph # (Auto) 1.5 [place] # (Auto) 0.5 Eos # (Auto) 0.1 Baso # (Auto) 0.0 Abs Immat Gran (auto) 0.05 H Absolute Neuts (auto) 2.0 Absolute Nucleated RBC 0.000 Nucleated RBC % (auto) 0.0 ESR 9 Sodium 142 Potassium 3.9 Chloride 108 Carbon Dioxide 29 Anion Gap 9 L BUN 10 Creatinine 0.60 Estim Creat Clear Calc 130.4 Estimated GFR > 60 Random Glucose 99 Calcium 9.0 Magnesium 2.1 Iron 78 TIBC 315 % Saturation 25 Unsat Iron Binding 237 Total Bilirubin 0.1 AST 18 ALT 7 Alkaline Phosphatase 65 C-Reactive Protein < 0.10 Total Protein 6.2 L Albumin 3.9 Triglycerides 252 H Cholesterol 191 LDL Cholesterol, Calc 92 HDL Cholesterol 49 Vitamin B12 681 Folate 9.3 TSH 0.64 Urine Color Yellow Urine Appearance Clear Urine pH 7.5 Ur Specific [place] 1.020 Urine Protein Trace Urine Glucose (UA) Negative Urine Ketones Trace Urine Blood Large (3+) H Urine Nitrite Negative Ur Leukocyte Esterase Small (1+) H Urine RBC 6-10 H Urine WBC 0-5 Ur Squamous Epith Cells 6-10 Urine Bacteria Trace Hyaline Casts 0-2 Urine Test NEGATIVE Salicylates < 5.0 L Urine Opiates Screen Not Detected Ur Buprenorphine Scrn Not Detected Ur Oxycodone Screen Not Detected Urine Methadone Screen Not Detected Urine Fentanyl Screen Not Detected Acetaminophen < 3 Ur Barbiturates Screen Not Detected Valproic Acid 67.6 Ur Phencyclidine Scrn Not Detected Ur Amphetamines Screen Not Detected U Benzodiazepines Scrn Not Detected Urine Cocaine Screen Not Detected U Marijuana (THC) Screen Not Detected Ethyl Alcohol < 10 COVID-19 ([facility]) Negative COVID-19 Clin Com See Note Imaging Radiology Impressions: ITS Impressions Head CT 12/30/24 14:36 IMPRESSION: No acute intracranial abnormality. Electronically signed by: Toby Jack MD 12/30/2024 03:54 PM EDT Medications Medications Current Medications Acetaminophen (Acetaminophen 325 Mg Tablet) 650 mg PO Q6H PRN PRN Reason: Headache/Pain, Scale 1-10 Al Hydroxide/Mg Hydroxide (Magnesium Hydrox/Alum Hydrox 30 Ml Oral.Susp) 30 ml PO Q6H PRN PRN Reason: Heartburn/Nausea Clonazepam (Clonazepam 1 Mg Tablet) 1 mg PO TID [facility] Last Admin: 01/01/25 08:22 Dose: 1 mg Cyclobenzaprine HCl (Cyclobenzaprine Hcl 10 Mg Tablet) 10 mg PO TID PRN PRN Reason: Muscle Spasm Last Admin: 12/31/24 21:18 Dose: 10 mg Divalproex Sodium (Divalproex Sodium Er 500 Mg Tab.Er.24h) 1,500 mg PO BEDTIME [facility] Last Admin: 12/31/24 21:20 Dose: 1,500 mg Hydroxyzine HCl (Hydroxyzine Hcl 50 Mg Tablet) 50 mg PO TID PRN PRN Reason: Anxiety Levothyroxine Sodium (Levothyroxine Sodium 50 Mcg Tablet) 50 mcg PO DAILY@0600 [facility] Last Admin: 01/01/25 06:56 Dose: 50 mcg [place] Carbonate ([place] Carbonate Er 300 Mg Tablet.Er) 600 mg PO BID [facility] Last Admin: 01/01/25 08:22 Dose: 600 mg Magnesium Hydroxide (Milk Of Magnesia 30 Ml Oral.Susp) 30 ml PO DAILY PRN PRN Reason: Constipation Nicotine Polacrilex (Nicotine Polacrilex 2 Mg Gum) 4 mg BUCCAL Q2H PRN PRN Reason: Nicotine Cravings Pt (Linaclotide [ Linzess] 145 Mcg Capsule) 145 mcg PO DAILY [facility] Last Admin: 01/01/25 08:22 Dose: 145 mcg Olanzapine (Olanzapine Odt 10 Mg Tab.Rapdis) 10 mg TRANSLINGU DAILY [facility] Last Admin: 01/01/25 08:22 Dose: 10 mg Olanzapine (Olanzapine 7.5 Mg Tablet) 15 mg PO BEDTIME [facility] Last Admin: 12/31/24 21:18 Dose: 15 mg Polyethylene Glycol (Polyethylene Glycol 3350 17 Gm Powd.Pack) 17 gm PO DAILY [facility] Last Admin: 01/01/25 08:22 Dose: 17 gm Prazosin HCl (Prazosin Hcl 1 Mg Capsule) 2 mg PO BEDTIME [facility]; Protocol Last Admin: 12/31/24 21:18 Dose: 2 mg Allergies Allergies Allergy/AdvReac Type Severity Reaction Status Date / Time No Known Allergies (No Known Allergy Verified 12/30/24 12:55 Allergies*) Assessment & Plan Assessment & Plan (1) Suicidal ideation: Status: Acute Code(s): R45.851 - Suicidal ideations (2) Bipolar 1 disorder: Status: Acute Code(s): F31.9 - Bipolar disorder, unspecified Plan tentative Dx of bipolar disorder versus schizoaffective disorder bipolar type increase VPA to 1500 mg QHS and add lithium 600 BID for mood stabilization. decrease klonopin to 1 TID due to oversedation; inexplicably, despite being prescribed klonopin 4 mg daily, pt's utox is benzo NEG. DC cogentin as not indicated and likely exacerbating constipation. RLS complaint - check iron studies. possibly akathisia (for which cogentin is not helpful). T/C decrease in zyprexa dosing, beta clarita, or alternate antipsychotic. also T/C gabapentin, iron supplementation, or other if RLS Dx is made. hypothyroid - check TFTs check inflammatory markers 01/01: Patient notes that she is anxious and depressed. She reports no change in her mood since recent medications adjustment. She endorses passive SI without a plan. She notes positive AH with tapping and scratching sounds all day long. The voices will scream and yell her, and commanding, whenever she does not take her Zyprexa. She denies HI or VH. Continue current treatment regimen. Patient educated on: therapeutic strategies Reason for continued inpatient stay Substantial Risk for: harm to self and rapid decompensation Time Spent With Patient Time: Total time managing care of this patient today ____ minutes.
[2025-01-01 20:00] VITALS: BP 114/62; RESP 16; TEMP 36.4; O2SAT 100
[2025-01-01] MEDS: OLANZapine 7.5 MG TABLET 15 MG PO (20:32)
[2025-01-01 20:33] VITALS: BP 114/62
[2025-01-02 07:00] VITALS: BMI 28.2
[2025-01-02 07:56] VITALS: BP 109/57; PULSE 90; RESP 20; TEMP 36.4; O2SAT 100
[2025-01-02] MEDS: OLANZapine ODT 10 MG TAB.RAPDIS TRANSLINGU (08:41)
[2025-01-02] MEDS: LINACLOTIDE 145 MCG 145 EACH PO (08:43)
[2025-01-02 08:55] LABS: Cholesterol 219 mg/dL (<200); HDL Cholesterol 54 mg/dL (>40); Triglycerides 239 mg/dL (<150)
--- NOTE | 2025-01-02 17:16 | HO.PSYCHPN ---
Subjective Subjective Date of Service: 01/02/25 Reason For Visit: Dangerous overmedication Interim History: calm, cooperative. blunted, slowed. agreeable to [id number] morning zyprexa to 5 mg. asking MD to call her grandmother. per staff, blunted, withdrawn. denies CAH. +AH. taking meds. slept 7 hours. restless legs that are throbbing, taking flexeril. Mental Status Exam Mental Status Exam Narrative: calm, cooperative, adequately dressed and groomed. cooperative. general PMR. speech nml rate, amount, loudness, latency. flattened tone. thoughts linear and logical. affect constricted, hypo-intense, non-labile. mood anxious. no SI/HI/AVH expressed. per staff, SI and AH continue. Diagnostics Vital Signs (24Hr): Vital Signs - 24 hr 01/01/25 20:00 01/01/25 20:33 01/02/25 07:56 Temperature 97.6 F 97.5 F Pulse Rate 90 Respiratory Rate 16 20 Blood Pressure 114/62 114/62 109/57 L Pulse Oximetry 100 100 Oxygen Delivery Method Room Air Room Air BMI result Body Mass Index 28.2 Labs 12/30/24 12:50 12/30/24 12:50 Labs: Laboratory Results - last 48 hr 12/31/24 01/02/25 19:56 08:21 ESR 9 Magnesium 2.1 Iron 78 TIBC 315 % Saturation 25 Unsat Iron Binding 237 C-Reactive Protein < 0.10 Triglycerides 252 H 239 H Cholesterol 191 219 H LDL Cholesterol, Calc 92 118 H HDL Cholesterol 49 54 Vitamin B12 681 Folate 9.3 TSH 0.64 Valproic Acid 67.6 Imaging Radiology Impressions: ITS Impressions Head CT 12/30/24 14:36 IMPRESSION: No acute intracranial abnormality. Electronically signed by: Toby Jack MD 12/30/2024 03:54 PM EDT Medications Medications Current Medications Acetaminophen (Acetaminophen 325 Mg Tablet) 650 mg PO Q6H PRN PRN Reason: Headache/Pain, Scale 1-10 Al Hydroxide/Mg Hydroxide (Magnesium Hydrox/Alum Hydrox 30 Ml Oral.Susp) 30 ml PO Q6H PRN PRN Reason: Heartburn/Nausea Clonazepam (Clonazepam 1 Mg Tablet) 1 mg PO TID [facility] Last Admin: 01/02/25 15:19 Dose: 1 mg Cyclobenzaprine HCl (Cyclobenzaprine Hcl 10 Mg Tablet) 10 mg PO TID PRN PRN Reason: Muscle Spasm Last Admin: 01/02/25 09:09 Dose: 10 mg Divalproex Sodium (Divalproex Sodium Er 500 Mg Tab.Er.24h) 1,500 mg PO BEDTIME [facility] Last Admin: 01/01/25 20:33 Dose: 1,500 mg Hydroxyzine HCl (Hydroxyzine Hcl 50 Mg Tablet) 50 mg PO TID PRN PRN Reason: Anxiety Levothyroxine Sodium (Levothyroxine Sodium 50 Mcg Tablet) 50 mcg PO DAILY@0600 [facility] Last Admin: 01/02/25 06:39 Dose: 50 mcg [place] Carbonate ([place] Carbonate Er 300 Mg Tablet.Er) 600 mg PO BID [facility] Last Admin: 01/02/25 08:42 Dose: 600 mg Magnesium Hydroxide (Milk Of Magnesia 30 Ml Oral.Susp) 30 ml PO DAILY PRN PRN Reason: Constipation Nicotine Polacrilex (Nicotine Polacrilex 2 Mg Gum) 4 mg BUCCAL Q2H PRN PRN Reason: Nicotine Cravings Pt (Linaclotide [ Linzess] 145 Mcg Capsule) 145 mcg PO DAILY [facility] Last Admin: 01/02/25 08:43 Dose: 145 mcg Olanzapine (Olanzapine 7.5 Mg Tablet) 15 mg PO BEDTIME [facility] Last Admin: 01/01/25 20:32 Dose: 15 mg Olanzapine (Olanzapine 5 Mg Tablet) 5 mg PO DAILY [facility] Polyethylene Glycol (Polyethylene Glycol 3350 17 Gm Powd.Pack) 17 gm PO DAILY [facility] Last Admin: 01/02/25 08:44 Dose: 17 gm Prazosin HCl (Prazosin Hcl 1 Mg Capsule) 2 mg PO BEDTIME [facility]; Protocol Last Admin: 01/01/25 20:33 Dose: 2 mg Allergies Allergies Allergy/AdvReac Type Severity Reaction Status Date / Time No Known Allergies (No Known Allergy Verified 12/30/24 12:55 Allergies*) Assessment & Plan Assessment & Plan (1) Suicidal ideation: Status: Acute Code(s): R45.851 - Suicidal ideations (2) Bipolar 1 disorder: Status: Acute Code(s): F31.9 - Bipolar disorder, unspecified Plan tentative Dx of bipolar disorder versus schizoaffective disorder bipolar type increase VPA to 1500 mg QHS and add lithium 600 BID for mood stabilization. decrease klonopin to 1 TID due to oversedation; inexplicably, despite being prescribed klonopin 4 mg daily, pt's utox is benzo NEG. DC cogentin as not indicated and likely exacerbating constipation. RLS complaint - check iron studies. possibly akathisia (for which cogentin is not helpful). T/C decrease in zyprexa dosing, beta clarita, or alternate antipsychotic. also T/C gabapentin, iron supplementation, or other if RLS Dx is made. hypothyroid - check TFTs check inflammatory markers 01/01: Patient notes that she is anxious and depressed. She reports no change in her mood since recent medications adjustment. She endorses passive SI without a plan. She notes positive AH with tapping and scratching sounds all day long. The voices will scream and yell her, and commanding, whenever she does not take her Zyprexa. She denies HI or VH. Continue current treatment regimen. 01/02: screening labs negative. decrease morning zyprexa from 10 mg to 5 mg to try to reduce PMR/sluggishness. call grandmother at [phone] (h) or [phone] (c) Joslyn Ohara. Reason for continued inpatient stay Substantial Risk for: harm to self and inability to function Time Spent With Patient Time: Total time managing care of this patient today __25__ minutes.
[2025-01-02 20:05] VITALS: BP 108/65; PULSE 113; RESP 14; TEMP 37.2; O2SAT 99
[2025-01-02] MEDS: OLANZapine 7.5 MG TABLET 15 MG PO (20:58)
[2025-01-02 20:59] VITALS: BP 108/65
[2025-01-03 07:25] VITALS: BP 104/55; PULSE 94; RESP 14; TEMP 36.6; O2SAT 100
[2025-01-03] MEDS: LINACLOTIDE 145 MCG 145 EACH PO (08:42)
[2025-01-03 12:17] LABS: Ammonia 39 umol/L (13-55)
--- NOTE | 2025-01-03 12:32 | HO.PSYCHPN ---
Subjective Subjective Date of Service: 01/03/25 Reason For Visit: Dangerous overmedication Interim History: remains appearing sedated, feeling off. RLS Sx most immediately troubling, keeping her from sleeping. reports uncomfortable sensations occur all the time but that they are worse at night. agreeable to start gabapentin for RLS Sx. feeling more irritable this morning since zyprexa was reduced to 5 mg from 10 mg. per staff, dep 7 anx 8. hearing tapping/scratching noises. up several times overnight. slept 4-5 hours. Mental Status Exam Mental Status Exam Narrative: calm, cooperative, adequately dressed and groomed. general PMR. speech nml rate, amount, loudness, latency. flattened tone. thoughts linear and logical. affect constricted, hypo-intense, non-labile. mood irritable. no SI/HI/AVH expressed. per staff, SI and AH continue. Diagnostics Vital Signs (24Hr): Vital Signs - 24 hr 01/02/25 20:05 01/02/25 20:59 01/03/25 07:25 Temperature 98.9 F 97.9 F Pulse Rate 113 H 94 Respiratory Rate 14 14 Blood Pressure 108/65 108/65 104/55 L Pulse Oximetry 99 100 Oxygen Delivery Method Room Air Room Air BMI result Body Mass Index 28.2 Labs 12/30/24 12:50 12/30/24 12:50 Labs: Laboratory Results - last 48 hr 01/02/25 01/03/25 08:21 12:06 Ammonia 39 Triglycerides 239 H Cholesterol 219 H LDL Cholesterol, Calc 118 H HDL Cholesterol 54 Imaging Radiology Impressions: ITS Impressions Head CT 12/30/24 14:36 IMPRESSION: No acute intracranial abnormality. Electronically signed by: Toby Jack MD 12/30/2024 03:54 PM EDT Medications Medications Current Medications Acetaminophen (Acetaminophen 325 Mg Tablet) 650 mg PO Q6H PRN PRN Reason: Headache/Pain, Scale 1-10 Al Hydroxide/Mg Hydroxide (Magnesium Hydrox/Alum Hydrox 30 Ml Oral.Susp) 30 ml PO Q6H PRN PRN Reason: Heartburn/Nausea Clonazepam (Clonazepam 1 Mg Tablet) 1 mg PO TID [facility] Last Admin: 01/03/25 08:41 Dose: 1 mg Cyclobenzaprine HCl (Cyclobenzaprine Hcl 10 Mg Tablet) 10 mg PO TID PRN PRN Reason: Muscle Spasm Last Admin: 01/03/25 00:21 Dose: 10 mg Divalproex Sodium (Divalproex Sodium Er 500 Mg Tab.Er.24h) 1,500 mg PO BEDTIME [facility] Last Admin: 01/02/25 20:58 Dose: 1,500 mg Gabapentin (Gabapentin 300 Mg Capsule) 300 mg PO DAILY@1500 [facility] Gabapentin (Gabapentin 600 Mg Tablet) 600 mg PO BEDTIME [facility] Hydroxyzine HCl (Hydroxyzine Hcl 50 Mg Tablet) 50 mg PO TID PRN PRN Reason: Anxiety Levothyroxine Sodium (Levothyroxine Sodium 50 Mcg Tablet) 50 mcg PO DAILY@0600 [facility] Last Admin: 01/03/25 06:25 Dose: 50 mcg [place] Carbonate ([place] Carbonate Er 300 Mg Tablet.Er) 600 mg PO BID [facility] Last Admin: 01/03/25 08:41 Dose: 600 mg Magnesium Hydroxide (Milk Of Magnesia 30 Ml Oral.Susp) 30 ml PO DAILY PRN PRN Reason: Constipation Melatonin (Melatonin 3 Mg Tablet) 3 mg PO BEDTIME [facility] Last Admin: 01/03/25 00:22 Dose: 3 mg Nicotine Polacrilex (Nicotine Polacrilex 2 Mg Gum) 4 mg BUCCAL Q2H PRN PRN Reason: Nicotine Cravings Pt (Linaclotide [ Linzess] 145 Mcg Capsule) 145 mcg PO DAILY [facility] Last Admin: 01/03/25 08:42 Dose: 145 mcg Olanzapine (Olanzapine 7.5 Mg Tablet) 15 mg PO BEDTIME [facility] Last Admin: 01/02/25 20:58 Dose: 15 mg Olanzapine (Olanzapine 5 Mg Tablet) 5 mg PO DAILY [facility] Last Admin: 01/03/25 08:41 Dose: 5 mg Polyethylene Glycol (Polyethylene Glycol 3350 17 Gm Powd.Pack) 17 gm PO DAILY [facility] Last Admin: 01/03/25 08:45 Dose: Not Given Prazosin HCl (Prazosin Hcl 1 Mg Capsule) 2 mg PO BEDTIME [facility]; Protocol Last Admin: 01/02/25 20:59 Dose: 2 mg Allergies Allergies Allergy/AdvReac Type Severity Reaction Status Date / Time No Known Allergies (No Known Allergy Verified 12/30/24 12:55 Allergies*) Assessment & Plan Assessment & Plan (1) Suicidal ideation: Status: Acute Code(s): R45.851 - Suicidal ideations (2) Bipolar 1 disorder: Status: Acute Code(s): F31.9 - Bipolar disorder, unspecified Plan tentative Dx of bipolar disorder versus schizoaffective disorder bipolar type increase VPA to 1500 mg QHS and add lithium 600 BID for mood stabilization. decrease klonopin to 1 TID due to oversedation; inexplicably, despite being prescribed klonopin 4 mg daily, pt's utox is benzo NEG. DC cogentin as not indicated and likely exacerbating constipation. RLS complaint - check iron studies. possibly akathisia (for which cogentin is not helpful). T/C decrease in zyprexa dosing, beta clarita, or alternate antipsychotic. also T/C gabapentin, iron supplementation, or other if RLS Dx is made. hypothyroid - check TFTs check inflammatory markers 01/01: Patient notes that she is anxious and depressed. She reports no change in her mood since recent medications adjustment. She endorses passive SI without a plan. She notes positive AH with tapping and scratching sounds all day long. The voices will scream and yell her, and commanding, whenever she does not take her Zyprexa. She denies HI or VH. Continue current treatment regimen. 01/02: screening labs negative. decrease morning zyprexa from 10 mg to 5 mg to try to reduce PMR/sluggishness. call grandmother at [phone] (h) or [phone] (c) Joslyn Ohara. 01/03: ammonia 39. start gabapentin 300/600 for RLS Sx. otherwise continue current mgmt. reports noting more irritability this morning since decreasing zyprexa from 10 mg to 5 mg daily. does not appear any less sluggish/sedated than on 10 mg, however. will try to continue to lower zyprexa dosing out of concern for akathisia rather than restless legs. plan to cut klonopin to 2 mg daily as of monday. case discussed at length with grandmother Joslyn. Reason for continued inpatient stay Substantial Risk for: inability to function Time Spent With Patient Time: Total time managing care of this patient today __35__ minutes.
[2025-01-03 21:30] VITALS: BP 111/54; PULSE 109; RESP 14; TEMP 36.8; O2SAT 98
[2025-01-03] MEDS: OLANZapine 7.5 MG TABLET 15 MG PO (21:35)
[2025-01-04 08:00] VITALS: BP 116/65; PULSE 85; RESP 20; TEMP 36.9; O2SAT 100
[2025-01-04] MEDS: LINACLOTIDE 145 MCG 145 EACH PO (08:49)
[2025-01-04 21:20] VITALS: BP 117/72; PULSE 114; RESP 16; TEMP 36.4; O2SAT 99
[2025-01-04] MEDS: OLANZapine 7.5 MG TABLET 15 MG PO (21:25)
--- NOTE | 2025-01-04 23:23 | HO.PSYCHPN ---
Subjective Subjective Date of Service: 01/04/25 Reason For Visit: Dangerous overmedication Subjective Notes: Conditional Voluntary Healthcare Proxy: No Guardianship: No Medical Problems Affecting Mental Status: No Interim History: Medical record and nursing notes reviewed; case discussed during rounds with team/nursing staff, and met with patient for supportive therapy/psychoeducation, as well as medication management. The patient in her room prior to lunch, patient appeared to be sedated. Reports she did not sleep well last night. Mood is tired. . Denies visual hallucinations at this current time but reports sometimes she experience signed vision randomly of shadows. Reports that since she started medication and every time when she started on medication she experience tabbing and scratching sounds. Reports passive SI but I do not have been intention to do harm to myself. Medication Compliance: Yes (Declined MiraLax as she does not needed yesterday morning.) Side effects from medications: Yes (Appeared to be sedated) Attending Groups: Intermittent Review of Systems Acute medical concerns: No Medical Review of Systems: unchanged Review of Systems Review of Systems Yes all other systems are reviewed and are negative Constitutional: Reports as per HPI Mental Status Exam Mental Status Exam Narrative: calm, cooperative, adequately dressed and groomed. general PMR. speechsi soft to nml rate, amount, loudness, latency. flattened tone. thoughts linear and logical. affect constricted, hypo-intense, non-labile. mood itired. , appear to be sedated. Denies HI/VH but reports passive SI no plan or intent. Reports tabbing and stretching sounds every time when she is taking medication. Diagnostics Vital Signs (24Hr): Vital Signs - 24 hr 01/04/25 08:00 01/04/25 21:20 Temperature 98.5 F 97.5 F Pulse Rate 85 114 H Respiratory Rate 20 16 Blood Pressure 116/65 117/72 Pulse Oximetry 100 99 Oxygen Delivery Method Room Air Room Air BMI result Body Mass Index 28.2 Labs 12/30/24 12:50 12/30/24 12:50 Labs: Laboratory Results - last 48 hr 01/03/25 12:06 Ammonia 39 Imaging Radiology Impressions: [facility] Impressions Head CT 12/30/24 14:36 IMPRESSION: No acute intracranial abnormality. Electronically signed by: Toby Jack MD 12/30/2024 03:54 PM EDT RP Medications Medications Current Medications Acetaminophen (Acetaminophen 325 Mg Tablet) 650 mg PO Q6H PRN PRN Reason: Headache/Pain, Scale 1-10 Al Hydroxide/Mg Hydroxide (Magnesium Hydrox/Alum Hydrox 30 Ml Oral.Susp) 30 ml PO Q6H PRN PRN Reason: Heartburn/Nausea Clonazepam (Clonazepam 1 Mg Tablet) 1 mg PO TID [facility] Last Admin: 01/04/25 21:25 Dose: 1 mg Cyclobenzaprine HCl (Cyclobenzaprine Hcl 10 Mg Tablet) 10 mg PO TID PRN PRN Reason: Muscle Spasm Last Admin: 01/04/25 21:24 Dose: 10 mg Divalproex Sodium (Divalproex Sodium Er 500 Mg Tab.Er.24h) 1,500 mg PO BEDTIME [facility] Last Admin: 01/04/25 21:26 Dose: 1,500 mg Gabapentin (Gabapentin 300 Mg Capsule) 300 mg PO DAILY@1500 [facility] Last Admin: 01/04/25 15:27 Dose: 300 mg Gabapentin (Gabapentin 600 Mg Tablet) 600 mg PO BEDTIME [facility] Last Admin: 01/04/25 21:25 Dose: 600 mg Hydroxyzine HCl (Hydroxyzine Hcl 50 Mg Tablet) 50 mg PO TID PRN PRN Reason: Anxiety Levothyroxine Sodium (Levothyroxine Sodium 50 Mcg Tablet) 50 mcg PO DAILY@0600 [facility] Last Admin: 01/04/25 06:18 Dose: 50 mcg [place] Carbonate ([place] Carbonate Er 300 Mg Tablet.Er) 600 mg PO BID [facility] Last Admin: 01/04/25 21:27 Dose: 600 mg Magnesium Hydroxide (Milk Of Magnesia 30 Ml Oral.Susp) 30 ml PO DAILY PRN PRN Reason: Constipation Melatonin (Melatonin 3 Mg Tablet) 3 mg PO BEDTIME PRN PRN Reason: insomnia Last Admin: 01/04/25 21:24 Dose: 3 mg Nicotine Polacrilex (Nicotine Polacrilex 2 Mg Gum) 4 mg BUCCAL Q2H PRN PRN Reason: Nicotine Cravings Pt Own (Linaclotide ([Linzess] 145 Mcg)) 145 mcg PO DAILY@0600 [facility] Olanzapine (Olanzapine 7.5 Mg Tablet) 15 mg PO BEDTIME [facility] Last Admin: 01/04/25 21:25 Dose: 15 mg Olanzapine (Olanzapine 5 Mg Tablet) 5 mg PO DAILY [facility] Last Admin: 01/04/25 08:50 Dose: 5 mg Polyethylene Glycol (Polyethylene Glycol 3350 17 Gm Powd.Pack) 17 gm PO DAILY PRN PRN Reason: Constipation Prazosin HCl (Prazosin Hcl 1 Mg Capsule) 2 mg PO BEDTIME [facility]; Protocol Last Admin: 01/04/25 21:26 Dose: 2 mg Allergies Allergies Allergy/AdvReac Type Severity Reaction Status Date / Time No Known Allergies (No Known Allergy Verified 12/30/24 12:55 Allergies*) Assessment & Plan Assessment & Plan (1) Suicidal ideation: Status: Acute Code(s): R45.851 - Suicidal ideations (2) Bipolar 1 disorder: Status: Acute Code(s): F31.9 - Bipolar disorder, unspecified Plan tentative Dx of bipolar disorder versus schizoaffective disorder bipolar type increase VPA to 1500 mg QHS and add lithium 600 BID for mood stabilization. decrease klonopin to 1 TID due to oversedation; inexplicably, despite being prescribed klonopin 4 mg daily, pt's utox is benzo NEG. DC cogentin as not indicated and likely exacerbating constipation. RLS complaint - check iron studies. possibly akathisia (for which cogentin is not helpful). T/C decrease in zyprexa dosing, beta clarita, or alternate antipsychotic. also T/C gabapentin, iron supplementation, or other if RLS Dx is made. hypothyroid - check TFTs check inflammatory markers 01/01: Patient notes that she is anxious and depressed. She reports no change in her mood since recent medications adjustment. She endorses passive SI without a plan. She notes positive AH with tapping and scratching sounds all day long. The voices will scream and yell her, and commanding, whenever she does not take her Zyprexa. She denies HI or VH. Continue current treatment regimen. 01/02: screening labs negative. decrease morning zyprexa from 10 mg to 5 mg to try to reduce PMR/sluggishness. call grandmother at [phone] (h) or [phone] (c) Joslyn Ohara. 01/03: ammonia 39. start gabapentin 300/600 for RLS Sx. otherwise continue current mgmt. reports noting more irritability this morning since decreasing zyprexa from 10 mg to 5 mg daily. does not appear any less sluggish/sedated than on 10 mg, however. will try to continue to lower zyprexa dosing out of concern for akathisia rather than restless legs. plan to cut klonopin to 2 mg daily as of monday. case discussed at length with grandmother Joslyn. 01/04/25: She appeared to be sedated, did not sleep well last night per her own report. Was compliant with medication except for MiraLax that she reports she does not needed. Changes into PRN instead. Continue to titrate medication down. She used to clonazepam total of 4 mg daily. Current dose is 3 mg a day. We will continue to taper down. She is more visible later on of the day but was sedated earlier. Reports tabbing and scratching souunds whie on medication. Current dose of Zyprexa total 20 mg/daily. Patient educated on: medication risk/benefits Informed Consent: further education needed Reason for continued inpatient stay Substantial Risk for: med/psych decompensation Time Spent With Patient Time: Total time managing care of this patient today ____ minutes.
[2025-01-05] MEDS: LINACLOTIDE 145 MCG 145 EACH PO (06:31)
[2025-01-05 08:00] VITALS: BP 113/55; PULSE 90; RESP 20; TEMP 36.4; O2SAT 99
[2025-01-05 12:23] LABS: Vitamin D 25-OH, D2 <4 ng/mL; Vitamin D 25-OH, D3 31 ng/mL; Vitamin D 25-OH, Total 31 ng/mL (30-100)
--- NOTE | 2025-01-05 13:27 | P.PNPSI_ITS ---
Subjective Subjective Date of Service: 01/05/25 Reason For Visit: Dangerous overmedication Subjective Notes: Conditional Voluntary Healthcare Proxy: No Guardianship: No Medical Problems Affecting Mental Status: No Interim History: Medical record and nursing notes reviewed; case discussed during rounds with team/nursing staff, and met with patient for supportive therapy/psychoeducation, as well as medication management. Patient slept 6 hours, medication compliant. Reports to nursing she feels groggy but less sedated compared to yesterday. Continued to report restless legs symptoms. History of on propranolol which was not helpful. Depression a 7/10 and anxiety an 8/10. Was tearful, more anxious when I discuss the plan of benzo taper. Reports having suicidal thoughts with plan to jump off the window with plan.. Nursing notified. Continue to disclose the hallucinations hearing tapping and scratching sounds. Medication Compliance: Yes Side effects from medications: No Attending Groups: Yes Review of Systems Acute medical concerns: No Medical Review of Systems: unchanged Review of Systems Review of Systems Yes all other systems are reviewed and are negative Constitutional: Reports as per [facility] Mental Status Exam Mental Status Exam Narrative: calm, cooperative, adequately dressed and groomed. general PMR. speechsi soft to nml rate, amount, loudness, latency. flattened tone. thoughts linear and logical. affect constricted, hypo-intense, non-labile. mood very anxious and depressed. , appear to be less sedated compare to yesterday. Denies HI/VH but reports SI with plan to jump out of window . Denies intent but states she will if she has a chance. Reports tabbing and stretching sounds every time when she is taking medication. Diagnostics Vital Signs (24Hr): Vital Signs - 24 hr 01/04/25 21:20 01/05/25 08:00 Temperature 97.5 F 97.6 F Pulse Rate 114 H 90 Respiratory Rate 16 20 Blood Pressure 117/72 113/55 L Pulse Oximetry 99 99 Oxygen Delivery Method Room Air Room Air BMI result Body Mass Index 28.2 Labs 01/05/25 20:29 01/05/25 20:29 Labs: Laboratory Results - last 48 hr 12/31/24 19:56 25-OH Vitamin D Total 31 25-Hydroxy Vitamin D2 <4 25-Hydroxy Vitamin D3 31 Imaging Radiology Impressions: [facility] Impressions Head CT 12/30/24 14:36 IMPRESSION: No acute intracranial abnormality. Electronically signed by: Toby Jack MD 12/30/2024 03:54 PM EDT RP Medications Medications Current Medications Acetaminophen (Acetaminophen 325 Mg Tablet) 650 mg PO Q6H PRN PRN Reason: Headache/Pain, Scale 1-10 Al Hydroxide/Mg Hydroxide (Magnesium Hydrox/Alum Hydrox 30 Ml Oral.Susp) 30 ml PO Q6H PRN PRN Reason: Heartburn/Nausea Clonazepam (Clonazepam 1 Mg Tablet) 1 mg PO TID [facility] Last Admin: 01/05/25 08:38 Dose: 1 mg Cyclobenzaprine HCl (Cyclobenzaprine Hcl 10 Mg Tablet) 10 mg PO TID PRN PRN Reason: Muscle Spasm Last Admin: 01/04/25 21:24 Dose: 10 mg Divalproex Sodium (Divalproex Sodium Er 500 Mg Tab.Er.24h) 1,500 mg PO BEDTIME [facility] Last Admin: 01/04/25 21:26 Dose: 1,500 mg Gabapentin (Gabapentin 300 Mg Capsule) 300 mg PO DAILY@1500 [facility] Last Admin: 01/04/25 15:27 Dose: 300 mg Gabapentin (Gabapentin 600 Mg Tablet) 600 mg PO BEDTIME [facility] Last Admin: 01/04/25 21:25 Dose: 600 mg Hydroxyzine HCl (Hydroxyzine Hcl 50 Mg Tablet) 50 mg PO TID PRN PRN Reason: Anxiety Levothyroxine Sodium (Levothyroxine Sodium 50 Mcg Tablet) 50 mcg PO DAILY@0600 [facility] Last Admin: 01/05/25 06:31 Dose: 50 mcg [place] Carbonate ([place] Carbonate Er 300 Mg Tablet.Er) 600 mg PO BID [facility] Last Admin: 01/05/25 08:38 Dose: 600 mg Magnesium Hydroxide (Milk Of Magnesia 30 Ml Oral.Susp) 30 ml PO DAILY PRN PRN Reason: Constipation Melatonin (Melatonin 3 Mg Tablet) 3 mg PO BEDTIME PRN PRN Reason: insomnia Last Admin: 01/04/25 21:24 Dose: 3 mg Nicotine Polacrilex (Nicotine Polacrilex 2 Mg Gum) 4 mg BUCCAL Q2H PRN PRN Reason: Nicotine Cravings Pt Own (Linaclotide ([Linzess] 145 Mcg)) 145 mcg PO DAILY@0600 [facility] Last Admin: 01/05/25 06:31 Dose: 145 mcg Olanzapine (Olanzapine 7.5 Mg Tablet) 15 mg PO BEDTIME [facility] Last Admin: 01/04/25 21:25 Dose: 15 mg Olanzapine (Olanzapine 5 Mg Tablet) 5 mg PO DAILY [facility] Last Admin: 01/05/25 08:38 Dose: 5 mg Polyethylene Glycol (Polyethylene Glycol 3350 17 Gm Powd.Pack) 17 gm PO DAILY PRN PRN Reason: Constipation Prazosin HCl (Prazosin Hcl 1 Mg Capsule) 2 mg PO BEDTIME [facility]; Protocol Last Admin: 01/04/25 21:26 Dose: 2 mg Allergies Allergies Allergy/AdvReac Type Severity Reaction Status Date / Time No Known Allergies (No Known Allergy Verified 12/30/24 12:55 Allergies*) Assessment & Plan Assessment & Plan (1) Suicidal ideation: Status: Acute Code(s): R45.851 - Suicidal ideations (2) Bipolar 1 disorder: Status: Acute Code(s): F31.9 - Bipolar disorder, unspecified Plan tentative Dx of bipolar disorder versus schizoaffective disorder bipolar type increase VPA to 1500 mg QHS and add lithium 600 BID for mood stabilization. decrease klonopin to 1 TID due to oversedation; inexplicably, despite being prescribed klonopin 4 mg daily, pt's utox is benzo NEG. DC cogentin as not indicated and likely exacerbating constipation. RLS complaint - check iron studies. possibly akathisia (for which cogentin is not helpful). T/C decrease in zyprexa dosing, beta clarita, or alternate antipsychotic. also T/C gabapentin, iron supplementation, or other if RLS Dx is made. hypothyroid - check TFTs check inflammatory markers 01/01: Patient notes that she is anxious and depressed. She reports no change in her mood since recent medications adjustment. She endorses passive SI without a plan. She notes positive AH with tapping and scratching sounds all day long. The voices will scream and yell her, and commanding, whenever she does not take her Zyprexa. She denies HI or VH. Continue current treatment regimen. 01/02: screening labs negative. decrease morning zyprexa from 10 mg to 5 mg to try to reduce PMR/sluggishness. call grandmother at [phone] (h) or [phone] (c) Joslyn Ohara. 01/03: ammonia 39. start gabapentin 300/600 for RLS Sx. otherwise continue current mgmt. reports noting more irritability this morning since decreasing zyprexa from 10 mg to 5 mg daily. does not appear any less sluggish/sedated than on 10 mg, however. will try to continue to lower zyprexa dosing out of concern for akathisia rather than restless legs. plan to cut klonopin to 2 mg daily as of monday. case discussed at length with grandmother Joslyn. 01/04/25: She appeared to be sedated, did not sleep well last night per her own report. Was compliant with medication except for MiraLax that she reports she does not needed. Changes into PRN instead. Continue to titrate medication down. She used to clonazepam total of 4 mg daily. Current dose is 3 mg a day. We will continue to taper down. She is more visible later on of the day but was sedated earlier. Reports tabbing and scratching souunds whie on medication. Current dose of Zyprexa total 20 mg/daily. 01/05/25: She does not agree with benzo taper, flat affect, tearful when discuss about benzos which she rather to do with long-term side effects and living with anxiety. Restless legs continue to bother her. History of propranolol which was not helpful. + SI with plan to jump out of the window in context of anxious related to benzo taper discussion. Able to seek out staff for help. Nursing notified. Flat affect, less sedated. Visible, attended groups, + AH: tabbing and stretching sounds. Patient educated on: medication risk/benefits and therapeutic strategies Informed Consent: understands and further education needed Reason for continued inpatient stay Substantial Risk for: med/psych decompensation Time Spent With Patient Time: Total time managing care of this patient today ____ minutes.
[2025-01-05 20:00] VITALS: BP 119/69; PULSE 108; RESP 16; TEMP 36.4; O2SAT 100
[2025-01-05] MEDS: OLANZapine 7.5 MG TABLET 15 MG PO (20:07)
[2025-01-05 20:46] LABS: MANUAL DIFF FLAG NO
[2025-01-05 20:52] LABS: Hematocrit 33.3 % (37.0-47.0); Hemoglobin 11.5 g/dl (12.0-16.0); Imm Gran Abs Auto 0.09 X10*3/uL (0.00-0.03); Imm Gran Pct Auto 1.3 % (0.0-0.4); Lymphocytes Absolute Auto 2.2 X10*3/uL (1.2-4.9); Mean Corpuscular HGB Conc 34.5 g/dl (31.0-35.0); Mean Corpuscular Hemoglobin 30.6 pg (27.0-33.0); Mean Corpuscular Volume 88.6 fL (80.0-98.0); NRBC Abs Auto 0.000 X10*3/uL (0.0-0.012); NRBC Pct Auto 0.0 /100WBC (0.0-0.2); Platelet Count 195 X10*3/uL (160-400); Red Blood Count 3.76 X10*6/uL (4.20-5.50); White Blood Count 7.2 X10*3/uL (4.8-10.8)
[2025-01-05 20:58] LABS: Lithium 0.60 mmol/L (0.60-1.20)
[2025-01-05 21:00] LABS: Ammonia 52 umol/L (13-55)
[2025-01-05 21:16] LABS: Alanine Aminotransferase 6 U/L (0-31); Albumin Level 4.2 g/dL (3.5-5.0); Alkaline Phosphatase 60 U/L (39-117); Anion Gap 13 (12-20); Aspartate Amino Transferase 17 U/L (5-31); Blood Urea Nitrogen 16 mg/dL (9-16); Calcium 9.3 mg/dL (8.4-10.2); Carbon Dioxide 25 mmol/L (22-29); Chloride 107 mmol/L (96-108); Creatinine Clr Calc Pharmacy 105.7; Estimated Glomerular Filt Rate > 60; Potassium 4.1 mmol/L (3.3-5.1); Sodium 141 mmol/L (135-145); Total Protein 7.0 g/dL (6.5-8.0)
[2025-01-05 21:26] LABS: Ferritin 24 ng/mL (10-122)
--- NOTE | 2025-01-05 23:49 | PC.NURSE ---
Staci reported to this insurance writer that she had caught myself sleep walking denies that she has any knowledge of sleep walking in the past. I think it's the medicine. They increased the dose. I think I was dreaming about maybe going to the bathroom but I woke up when I walked into the toilet.
[2025-01-06] MEDS: LINACLOTIDE 145 MCG 145 EACH PO (06:25)
[2025-01-06 08:00] VITALS: BP 109/51; PULSE 100; RESP 16; TEMP 36.8; O2SAT 100
--- NOTE | 2025-01-06 16:08 | HO.PSYCHPN ---
Subjective Subjective Date of Service: 01/06/25 Reason For Visit: Dangerous overmedication Interim History: increased anxiety today, concerned her klonopin dosing is going to be reduced again and her anxiety will spiral out of control. reports less sedation in the morning, some labile/irritable mood. agreeable to decrease morning zyprexa as AH under adequate control and still need to decrease sedation. c/o ongoing RLS Sx, agreeable to increase HS gabapentin to 900 mg. lithium level 0.60, agreeable to increase lithium dosing from 600 BID to 600/900. otherwise continue current mgmt. per staff, +dep/anx. +SI, no plan. +AH. visible, eating. taking meds. less groggy/tired days. anxious re plan to decrease klonopin. Mental Status Exam Mental Status Exam Narrative: calm, cooperative, adequately dressed and groomed. general PMR. speech nml rate, amount, loudness, latency. flattened tone. thoughts linear and logical. affect constricted, hypo-intense, non-labile. mood anxious. no SI/HI/AVH expressed. per staff, SI and AH continue. Diagnostics Vital Signs (24Hr): Vital Signs - 24 hr 01/05/25 20:00 01/06/25 08:00 Temperature 97.5 F 98.2 F Pulse Rate 108 H 100 Respiratory Rate 16 16 Blood Pressure 119/69 109/51 L Pulse Oximetry 100 100 Oxygen Delivery Method Room Air Room Air BMI result Body Mass Index 28.2 Labs 01/05/25 20:29 01/05/25 20:29 Labs: Laboratory Results - last 48 hr 12/31/24 01/05/25 01/05/25 19:56 20:28 20:29 WBC 7.2 RBC 3.76 L Hgb 11.5 L Hct 33.3 L MCV 88.6 MCH 30.6 MCHC 34.5 RDW 12.2 Plt Count 195 D MPV 9.3 L Immature Gran % (Auto) 1.3 H Neut % (Auto) 53.1 Lymph % (Auto) 30.0 [place] % (Auto) 10.3 Eos % (Auto) 4.7 H Baso % (Auto) 0.6 Lymph # (Auto) 2.2 [place] # (Auto) 0.7 Eos # (Auto) 0.3 Baso # (Auto) 0.0 Abs Immat Gran (auto) 0.09 H Absolute Neuts (auto) 3.8 Absolute Nucleated RBC 0.000 Nucleated RBC % (auto) 0.0 Sodium 141 Potassium 4.1 Chloride 107 Carbon Dioxide 25 Anion Gap 13 BUN 16 Creatinine 0.76 Estim Creat Clear Calc 105.7 Estimated GFR > 60 Random Glucose 123 H Calcium 9.3 Ferritin 24 Total Bilirubin 0.1 Direct Bilirubin < 0.2 AST 17 ALT 6 Alkaline Phosphatase 60 Ammonia 52 Total Protein 7.0 Albumin 4.2 25-OH Vitamin D Total 31 25-Hydroxy Vitamin D2 <4 25-Hydroxy Vitamin D3 31 Valproic Acid 95.0 [place] 0.60 Imaging Radiology Impressions: ITS Impressions Head CT 12/30/24 14:36 IMPRESSION: No acute intracranial abnormality. Electronically signed by: Toby Jack MD 12/30/2024 03:54 PM EDT RP Medications Medications Current Medications Acetaminophen (Acetaminophen 325 Mg Tablet) 650 mg PO Q6H PRN PRN Reason: Headache/Pain, Scale 1-10 Al Hydroxide/Mg Hydroxide (Magnesium Hydrox/Alum Hydrox 30 Ml Oral.Susp) 30 ml PO Q6H PRN PRN Reason: Heartburn/Nausea Clonazepam (Clonazepam 1 Mg Tablet) 1 mg PO TID [facility] Last Admin: 01/06/25 15:44 Dose: 1 mg Cyclobenzaprine HCl (Cyclobenzaprine Hcl 10 Mg Tablet) 10 mg PO TID PRN PRN Reason: Muscle Spasm Last Admin: 01/05/25 20:06 Dose: 10 mg Divalproex Sodium (Divalproex Sodium Er 500 Mg Tab.Er.24h) 1,500 mg PO BEDTIME [facility] [place] Last Admin: 01/05/25 20:05 Dose: 1,500 mg Gabapentin (Gabapentin 300 Mg Capsule) 300 mg PO DAILY@1500 [facility] [place] Last Admin: 01/06/25 15:44 Dose: 300 mg Gabapentin (Gabapentin 600 Mg Tablet) 900 mg PO BEDTIME [facility] Hydroxyzine HCl (Hydroxyzine Hcl 50 Mg Tablet) 50 mg PO TID PRN PRN Reason: Anxiety Levothyroxine Sodium (Levothyroxine Sodium 50 Mcg Tablet) 50 mcg PO DAILY@0600 [facility] [place] Last Admin: 01/06/25 06:25 Dose: 50 mcg [place] Carbonate ([place] Carbonate Er 300 Mg Tablet.Er) 600 mg PO DAILY [facility] [place] Carbonate ([place] Carbonate Er 450 Mg Tablet.Er) 900 mg PO BEDTIME [facility] Magnesium Hydroxide (Milk Of Magnesia 30 Ml Oral.Susp) 30 ml PO DAILY PRN PRN Reason: Constipation Melatonin (Melatonin 3 Mg Tablet) 3 mg PO BEDTIME PRN PRN Reason: insomnia Last Admin: 01/04/25 21:24 Dose: 3 mg Nicotine Polacrilex (Nicotine Polacrilex 2 Mg Gum) 4 mg BUCCAL Q2H PRN PRN Reason: Nicotine Cravings Pt Own (Linaclotide ([Linzess] 145 Mcg)) 145 mcg PO DAILY@0600 [facility] Last Admin: 01/06/25 06:25 Dose: 145 mcg Olanzapine (Olanzapine 7.5 Mg Tablet) 15 mg PO BEDTIME [facility] Last Admin: 01/05/25 20:07 Dose: 15 mg Polyethylene Glycol (Polyethylene Glycol 3350 17 Gm Powd.Pack) 17 gm PO DAILY PRN PRN Reason: Constipation Prazosin HCl (Prazosin Hcl 1 Mg Capsule) 2 mg PO BEDTIME [facility]; Protocol Last Admin: 01/05/25 20:07 Dose: 2 mg Allergies Allergies Allergy/AdvReac Type Severity Reaction Status Date / Time No Known Allergies (No Known Allergy Verified 12/30/24 12:55 Allergies*) Assessment & Plan Assessment & Plan (1) Suicidal ideation: Status: Acute Code(s): R45.851 - Suicidal ideations (2) Bipolar 1 disorder: Status: Acute Code(s): F31.9 - Bipolar disorder, unspecified Plan tentative Dx of bipolar disorder versus schizoaffective disorder bipolar type increase VPA to 1500 mg QHS and add lithium 600 BID for mood stabilization. decrease klonopin to 1 TID due to oversedation; inexplicably, despite being prescribed klonopin 4 mg daily, pt's utox is benzo NEG. DC cogentin as not indicated and likely exacerbating constipation. RLS complaint - check iron studies. possibly akathisia (for which cogentin is not helpful). T/C decrease in zyprexa dosing, beta clarita, or alternate antipsychotic. also T/C gabapentin, iron supplementation, or other if RLS Dx is made. hypothyroid - check TFTs check inflammatory markers 01/01: Patient notes that she is anxious and depressed. She reports no change in her mood since recent medications adjustment. She endorses passive SI without a plan. She notes positive AH with tapping and scratching sounds all day long. The voices will scream and yell her, and commanding, whenever she does not take her Zyprexa. She denies HI or VH. Continue current treatment regimen. 01/02: screening labs negative. decrease morning zyprexa from 10 mg to 5 mg to try to reduce PMR/sluggishness. call grandmother at [phone] (h) or [phone] (c) Joslyn Lev. 01/03: ammonia 39. start gabapentin 300/600 for RLS Sx. otherwise continue current mgmt. reports noting more irritability this morning since decreasing zyprexa from 10 mg to 5 mg daily. does not appear any less sluggish/sedated than on 10 mg, however. will try to continue to lower zyprexa dosing out of concern for akathisia rather than restless legs. plan to cut klonopin to 2 mg daily as of monday. case discussed at length with grandmother Joslyn. 01/04/25: She appeared to be sedated, did not sleep well last night per her own report. Was compliant with medication except for MiraLax that she reports she does not needed. Changes into PRN instead. Continue to titrate medication down. She used to clonazepam total of 4 mg daily. Current dose is 3 mg a day. We will continue to taper down. She is more visible later on of the day but was sedated earlier. Reports tabbing and scratching souunds whie on medication. Current dose of Zyprexa total 20 mg/daily. 01/05/25: She does not agree with benzo taper, flat affect, tearful when discuss about benzos which she rather to do with long-term side effects and living with anxiety. Restless legs continue to bother her. History of propranolol which was not helpful. + SI with plan to jump out of the window in context of anxious related to benzo taper discussion. Able to seek out staff for help. Nursing notified. Flat affect, less sedated. Visible, attended groups, + AH: tabbing and stretching sounds. 01/06: continue benzos as the are for now. increase lithium regimen to 600/900 (level 0.60 on 1200 mg daily). RLS Sx continue, increase HS gabapentin to 900 mg. DC morning zyprexa as AH under adequate control. otherwise continue current mgmt. Reason for continued inpatient stay Substantial Risk for: inability to function Time Spent With Patient Time: Total time managing care of this patient today __25__ minutes.
[2025-01-06 20:00] VITALS: BP 98/51; PULSE 117; RESP 16; TEMP 37.1; O2SAT 97
[2025-01-06 20:55] VITALS: BP 116/71; PULSE 117; RESP 16; TEMP 37.1; O2SAT 97
[2025-01-06 21:09] VITALS: BP 116/71
[2025-01-06] MEDS: OLANZapine 7.5 MG TABLET 15 MG PO (21:09)
[2025-01-07] MEDS: LINACLOTIDE 145 MCG 145 EACH PO (06:42)
[2025-01-07 07:56] VITALS: BP 103/55; PULSE 94; RESP 16; TEMP 36.3; O2SAT 97
--- NOTE | 2025-01-07 16:55 | HO.PSYCHPN ---
Subjective Subjective Date of Service: 01/07/25 Reason For Visit: Dangerous overmedication Interim History: appears not so different from prior days. in bed, appears blunted, tired. first thing noted she sleep-walked last night. suggests continuing to lower klonopin, offers to decrease gabapentin at HS, pt declines. pt does note that RLS Sx continue. per staff, pt reports feeling goldstein. pulliam of her blank stare. c/o racing thoughts. questioning reality: opened door of her bathroom last night and thought it was the door to the kitchen. c/o sleepwalking last night, slept 5-6 hours. Mental Status Exam Mental Status Exam Narrative: calm, cooperative, adequately dressed and groomed. general PMR. speech nml rate, amount, loudness, latency. flattened tone. thoughts linear and logical. affect constricted, hypo-intense, non-labile. mood anxious. no SI/HI/AVH expressed. per staff, SI and AH continue. Diagnostics Vital Signs (24Hr): Vital Signs - 24 hr 01/06/25 20:00 01/06/25 20:55 01/06/25 21:09 Temperature 98.7 F 98.7 F Pulse Rate 117 H 117 H Respiratory Rate 16 16 Blood Pressure 98/51 L 116/71 116/71 Pulse Oximetry 97 97 Oxygen Delivery Method Room Air Room Air 01/07/25 07:56 Temperature 97.4 F Pulse Rate 94 Respiratory Rate 16 Blood Pressure 103/55 L Pulse Oximetry 97 Oxygen Delivery Method Room Air BMI result Body Mass Index 28.2 Labs 01/05/25 20:29 01/05/25 20:29 Labs: Laboratory Results - last 48 hr 01/05/25 01/05/25 20:28 20:29 WBC 7.2 RBC 3.76 L Hgb 11.5 L Hct 33.3 L MCV 88.6 MCH 30.6 MCHC 34.5 RDW 12.2 Plt Count 195 D MPV 9.3 L Immature Gran % (Auto) 1.3 H Neut % (Auto) 53.1 Lymph % (Auto) 30.0 [place] % (Auto) 10.3 Eos % (Auto) 4.7 H Baso % (Auto) 0.6 Lymph # (Auto) 2.2 [place] # (Auto) 0.7 Eos # (Auto) 0.3 Baso # (Auto) 0.0 Abs Immat Gran (auto) 0.09 H Absolute Neuts (auto) 3.8 Absolute Nucleated RBC 0.000 Nucleated RBC % (auto) 0.0 Sodium 141 Potassium 4.1 Chloride 107 Carbon Dioxide 25 Anion Gap 13 BUN 16 Creatinine 0.76 Estim Creat Clear Calc 105.7 Estimated GFR > 60 Random Glucose 123 H Calcium 9.3 Ferritin 24 Total Bilirubin 0.1 Direct Bilirubin < 0.2 AST 17 ALT 6 Alkaline Phosphatase 60 Ammonia 52 Total Protein 7.0 Albumin 4.2 Valproic Acid 95.0 [place] 0.60 Imaging Radiology Impressions: ITS Impressions Head CT 12/30/24 14:36 IMPRESSION: No acute intracranial abnormality. Electronically signed by: Toby Jack MD 12/30/2024 03:54 PM EDT RP Medications Medications Current Medications Acetaminophen (Acetaminophen 325 Mg Tablet) 650 mg PO Q6H PRN PRN Reason: Headache/Pain, Scale 1-10 Al Hydroxide/Mg Hydroxide (Magnesium Hydrox/Alum Hydrox 30 Ml Oral.Susp) 30 ml PO Q6H PRN PRN Reason: Heartburn/Nausea Clonazepam (Clonazepam 1 Mg Tablet) 1 mg PO BEDTIME [facility] Clonazepam (Clonazepam 0.5 Mg Tablet) 0.5 mg PO BID@0900,1500 [facility] Last Admin: 01/07/25 14:41 Dose: 0.5 mg Cyclobenzaprine HCl (Cyclobenzaprine Hcl 10 Mg Tablet) 10 mg PO TID PRN PRN Reason: Muscle Spasm Last Admin: 01/06/25 21:13 Dose: 10 mg Divalproex Sodium (Divalproex Sodium Er 500 Mg Tab.Er.24h) 1,500 mg PO BEDTIME [facility] Last Admin: 01/06/25 21:10 Dose: 1,500 mg Gabapentin (Gabapentin 300 Mg Capsule) 300 mg PO DAILY@1500 [facility] Last Admin: 01/07/25 14:41 Dose: 300 mg Gabapentin (Gabapentin 300 Mg Capsule) 900 mg PO BEDTIME [facility] Last Admin: 01/06/25 21:09 Dose: 900 mg Hydroxyzine HCl (Hydroxyzine Hcl 50 Mg Tablet) 50 mg PO TID PRN PRN Reason: Anxiety Levothyroxine Sodium (Levothyroxine Sodium 50 Mcg Tablet) 50 mcg PO DAILY@0600 [facility] Last Admin: 01/07/25 06:41 Dose: 50 mcg [place] Carbonate ([place] Carbonate Er 300 Mg Tablet.Er) 600 mg PO DAILY [facility] Last Admin: 01/07/25 08:14 Dose: 600 mg [place] Carbonate ([place] Carbonate Er 450 Mg Tablet.Er) 900 mg PO BEDTIME [facility] Last Admin: 01/06/25 21:09 Dose: 900 mg Magnesium Hydroxide (Milk Of Magnesia 30 Ml Oral.Susp) 30 ml PO DAILY PRN PRN Reason: Constipation Melatonin (Melatonin 3 Mg Tablet) 3 mg PO BEDTIME PRN PRN Reason: insomnia Last Admin: 01/04/25 21:24 Dose: 3 mg Nicotine Polacrilex (Nicotine Polacrilex 2 Mg Gum) 4 mg BUCCAL Q2H PRN PRN Reason: Nicotine Cravings Pt Own (Linaclotide ([Linzess] 145 Mcg)) 145 mcg PO DAILY@0600 [facility] Last Admin: 01/07/25 06:42 Dose: 145 mcg Olanzapine (Olanzapine 7.5 Mg Tablet) 15 mg PO BEDTIME [facility] Last Admin: 01/06/25 21:09 Dose: 15 mg Polyethylene Glycol (Polyethylene Glycol 3350 17 Gm Powd.Pack) 17 gm PO DAILY PRN PRN Reason: Constipation Prazosin HCl (Prazosin Hcl 1 Mg Capsule) 2 mg PO BEDTIME [facility]; Protocol Last Admin: 01/06/25 21:09 Dose: 2 mg Allergies Allergies Allergy/AdvReac Type Severity Reaction Status Date / Time No Known Allergies (No Known Allergy Verified 12/30/24 12:55 Allergies*) Assessment & Plan Assessment & Plan (1) Suicidal ideation: Status: Acute Code(s): R45.851 - Suicidal ideations (2) Bipolar 1 disorder: Status: Acute Code(s): F31.9 - Bipolar disorder, unspecified Plan tentative Dx of bipolar disorder versus schizoaffective disorder bipolar type increase VPA to 1500 mg QHS and add lithium 600 BID for mood stabilization. decrease klonopin to 1 TID due to oversedation; inexplicably, despite being prescribed klonopin 4 mg daily, pt's utox is benzo NEG. DC cogentin as not indicated and likely exacerbating constipation. RLS complaint - check iron studies. possibly akathisia (for which cogentin is not helpful). T/C decrease in zyprexa dosing, beta clarita, or alternate antipsychotic. also T/C gabapentin, iron supplementation, or other if RLS Dx is made. hypothyroid - check TFTs check inflammatory markers 01/01: Patient notes that she is anxious and depressed. She reports no change in her mood since recent medications adjustment. She endorses passive SI without a plan. She notes positive AH with tapping and scratching sounds all day long. The voices will scream and yell her, and commanding, whenever she does not take her Zyprexa. She denies HI or VH. Continue current treatment regimen. 01/02: screening labs negative. decrease morning zyprexa from 10 mg to 5 mg to try to reduce PMR/sluggishness. call grandmother at [phone] (h) or [phone] (c) Joslyn Ohara. 01/03: ammonia 39. start gabapentin 300/600 for RLS Sx. otherwise continue current mgmt. reports noting more irritability this morning since decreasing zyprexa from 10 mg to 5 mg daily. does not appear any less sluggish/sedated than on 10 mg, however. will try to continue to lower zyprexa dosing out of concern for akathisia rather than restless legs. plan to cut klonopin to 2 mg daily as of monday. case discussed at length with grandmother Joslyn. 01/04/25: She appeared to be sedated, did not sleep well last night per her own report. Was compliant with medication except for MiraLax that she reports she does not needed. Changes into PRN instead. Continue to titrate medication down. She used to clonazepam total of 4 mg daily. Current dose is 3 mg a day. We will continue to taper down. She is more visible later on of the day but was sedated earlier. Reports tabbing and scratching souunds whie on medication. Current dose of Zyprexa total 20 mg/daily. 01/05/25: She does not agree with benzo taper, flat affect, tearful when discuss about benzos which she rather to do with long-term side effects and living with anxiety. Restless legs continue to bother her. History of propranolol which was not helpful. + SI with plan to jump out of the window in context of anxious related to benzo taper discussion. Able to seek out staff for help. Nursing notified. Flat affect, less sedated. Visible, attended groups, + AH: tabbing and stretching sounds. 01/06: continue benzos as they are for now. increase lithium regimen to 600/900 (level 0.60 on 1200 mg daily). RLS Sx continue, increase HS gabapentin to 900 mg. DC morning zyprexa as AH under adequate control. otherwise continue current mgmt. 01/07: c/o sleepwalking episode last night. decides to continue with current HS regimen in any case. presses to decrease klonopin from 1 TID to 0.5/0.5/1 as of this afternoon, which is done. otherwise continue current regimen. Reason for continued inpatient stay Substantial Risk for: inability to function and med/psych decompensation Time Spent With Patient Time: Total time managing care of this patient today __25__ minutes.
[2025-01-07 20:00] VITALS: BP 113/76; PULSE 116; TEMP 36.4; O2SAT 97
[2025-01-07] MEDS: OLANZapine 7.5 MG TABLET 15 MG PO (20:29)
[2025-01-07 20:30] VITALS: BP 113/76
[2025-01-08] MEDS: LINACLOTIDE 145 MCG 145 EACH PO (06:29)
[2025-01-08 08:00] VITALS: BP 104/57; PULSE 95; RESP 20; TEMP 36.7; O2SAT 99
[2025-01-08] MEDS: Milk of Magnesia 30 ML ORAL.SUSP PO (09:12)
--- NOTE | 2025-01-08 10:42 | HO.PM.IMCN ---
History of Present Illness Data of Consult Service Date: 01/08/25 Primary Care Provider: [facility] Reason for consult: Eye discomfort and tearing 29-year-old female with a past medical history of bipolar disorder versus schizoaffective disorder bipolar type, suicidal ideation, presented to the ED with plans to jump out of a window. Patient is admitted on in 3 for further treatment. He is being seen today for eye complaint. She reports that for the past 1 year she has had issues with her eyes burning at times, and tearing at times. She reports that she has trouble reading and has to hold things very close to her eyes in order to be able to see to read. Denies double vision, no drainage noted, denies any seasonal allergies. Denies any eye pain, denies any itch. She reports to me that she feels as though her eyes do not belong there She has never seen an eye doctor. She is noted to be weepy throughout most of the visit. She denies any fever or chills denies any eye injuries denies any other concerning symptoms. Review of Systems Review of Systems: Denies any shortness of breath, chest pain, dizziness, lightheadedness, abdominal pain or discomfort, nausea vomiting or diarrhea [facility] Medical History (Updated 01/08/25 @ 14:46 by Yessy Penaloza DNP) Bipolar 1 disorder Social History Household Members: Family Household Members Other:: Grandparents, 2 kids Housing: House Do you presently have visiting nurse or other home services: No Alcohol intake: never Patient Tobacco Use Status: Never used Tobacco Smoked in Last 30 Days: No Use of substances other than those prescribed or required for medical reasons: No Substance Use Type: Marijuana Currently Displaying Signs/Symptoms of Drug Intoxication Withdrawal: No Have you been hit, kicked, punched, or otherwise hurt by someone within the past year? If so, by whom?: No Do you feel safe in your current relationship?: Yes Is there a partner from a previous relationship who is making you feel unsafe now?: No Are you made to feel afraid or neglected: No Advance Directives: No Advance Directives Information Provided: Yes Do you have thoughts of harming others: None Do you have a plan to hurt others: No Plan Recently lost weight without trying: No Eating poorly because of decreased appetite: No Nutrition Risks: No Nutritional Risk Patient : No service: No Sexual orientation: Straight/Heterosexual Meds Allergies Allergy/AdvReac Type Severity Reaction Status Date / Time No Known Allergies (No Known Allergy Verified 12/30/24 12:55 Allergies*) Active Medications: Current Medications Acetaminophen (Acetaminophen 325 Mg Tablet) 650 mg PO Q6H PRN PRN Reason: Headache/Pain, Scale 1-10 Al Hydroxide/Mg Hydroxide (Magnesium Hydrox/Alum Hydrox 30 Ml Oral.Susp) 30 ml PO Q6H PRN PRN Reason: Heartburn/Nausea Clonazepam (Clonazepam 1 Mg Tablet) 1 mg PO BEDTIME [facility] Last Admin: 01/07/25 20:30 Dose: 1 mg Clonazepam (Clonazepam 0.5 Mg Tablet) 0.5 mg PO BID@0900,1500 [facility] Last Admin: 01/08/25 09:07 Dose: 0.5 mg Cyclobenzaprine HCl (Cyclobenzaprine Hcl 10 Mg Tablet) 10 mg PO TID PRN PRN Reason: Muscle Spasm Last Admin: 01/06/25 21:13 Dose: 10 mg Divalproex Sodium (Divalproex Sodium Er 500 Mg Tab.Er.24h) 1,500 mg PO BEDTIME [facility] Last Admin: 01/07/25 20:30 Dose: 1,500 mg Gabapentin (Gabapentin 300 Mg Capsule) 300 mg PO DAILY@1500 [facility] Last Admin: 01/07/25 14:41 Dose: 300 mg Gabapentin (Gabapentin 300 Mg Capsule) 900 mg PO BEDTIME [facility] Last Admin: 01/07/25 20:29 Dose: 900 mg Hydroxyzine HCl (Hydroxyzine Hcl 50 Mg Tablet) 50 mg PO TID PRN PRN Reason: Anxiety Levothyroxine Sodium (Levothyroxine Sodium 50 Mcg Tablet) 50 mcg PO DAILY@0600 [facility] Last Admin: 01/08/25 06:28 Dose: 50 mcg [place] Carbonate ([place] Carbonate Er 300 Mg Tablet.Er) 600 mg PO DAILY [facility] Last Admin: 01/08/25 09:07 Dose: 600 mg [place] Carbonate ([place] Carbonate Er 450 Mg Tablet.Er) 900 mg PO BEDTIME [facility] Last Admin: 01/07/25 20:30 Dose: 900 mg Magnesium Hydroxide (Milk Of Magnesia 30 Ml Oral.Susp) 30 ml PO DAILY PRN PRN Reason: Constipation Last Admin: 01/08/25 09:12 Dose: 30 ml Melatonin (Melatonin 3 Mg Tablet) 3 mg PO BEDTIME PRN PRN Reason: insomnia Last Admin: 01/04/25 21:24 Dose: 3 mg Nicotine Polacrilex (Nicotine Polacrilex 2 Mg Gum) 4 mg BUCCAL Q2H PRN PRN Reason: Nicotine Cravings Pt Own (Linaclotide ([Linzess] 145 Mcg)) 145 mcg PO DAILY@0600 [facility] Last Admin: 01/08/25 06:29 Dose: 145 mcg Olanzapine (Olanzapine 7.5 Mg Tablet) 15 mg PO BEDTIME [facility] Last Admin: 01/07/25 20:29 Dose: 15 mg Polyethylene Glycol (Polyethylene Glycol 3350 17 Gm Powd.Pack) 17 gm PO DAILY PRN PRN Reason: Constipation Last Admin: 01/07/25 18:10 Dose: 17 gm Prazosin HCl (Prazosin Hcl 1 Mg Capsule) 2 mg PO BEDTIME [facility]; Protocol Last Admin: 01/07/25 20:30 Dose: 2 mg Home Medications ?Medication ?Instructions ?Recorded ?Confirmed ?Last Taken ?Type clonazepam 1 mg tablet 1 tab PO QID Anxiety 05/23/21 12/30/24 12/30/24 08:00 History benztropine 1 mg tablet 1 mg PO Q12H 12/30/24 12/30/24 12/30/24 08:00 History cyclobenzaprine 10 mg tablet 10 mg PO TID PRN Muscle Spasm 12/30/24 12/30/24 Unknown History dextromethorphan IR 45 1 tab PO DAILY 12/30/24 12/30/24 12/30/24 08:00 History mg-bupropion ER 105 mg biphasic tablet ([place]) divalproex 500 mg tablet,extended 1,000 mg PO BEDTIME 12/30/24 12/30/24 12/29/24 20:00 History release 24 hr hydroxyzine pamoate 50 mg capsule 50 mg PO TID PRN Anxiety 12/30/24 12/30/24 Unknown History levothyroxine 50 mcg tablet 50 mcg PO DAILY 12/30/24 12/30/24 12/30/24 06:30 History linaclotide 145 mcg capsule 145 mcg PO DAILY 12/30/24 12/30/24 12/30/24 08:00 History (Linzess) olanzapine 10 mg disintegrating 10 mg PO DAILY 12/30/24 12/30/24 12/30/24 08:00 History tablet olanzapine 15 mg disintegrating 15 mg PO BEDTIME 12/30/24 12/30/24 12/29/24 21:00 History tablet prazosin 2 mg capsule 2 mg PO BEDTIME 12/30/24 12/30/24 12/29/24 21:00 History Physical Exam Vital Signs and Narrative: Vital Signs: Last Vital Signs Temp 98.1 F 01/08/25 08:00 Pulse 95 01/08/25 08:00 Resp 20 01/08/25 08:00 BP 104/57 L 01/08/25 08:00 Pulse Ox 99 01/08/25 08:00 O2 Del Method Room Air 01/08/25 08:00 BMI result Body Mass Index 28.2 CONST: Alert and oriented, in NAD. Well nourished HEENT: Normocephalic, atraumatic, MMM, Eyes clear, PERRLA RESP: Lungs clear, RRR even and regular HEART:,RRR, S1, S2. no edema GI:Abdomen Soft NT, ND. + BS times four :Deferred SKIN: Warm dry and intact, no visible lesions or rashes NEURO:CN II-XII Intact bilaterally, Sensation intact. Speech clear PSYCH: Normal affect Results Labs 01/05/25 20:29 01/05/25 20:29 Assessment and Plan (1) Eye irritation: Status: Acute Plan Bipolar 1 disorder/suicidal ideation Treatment per psychiatric team Eye iirritation No obvious signs of injury, no drainage, no redness Suspect patient is straining to read which may be causing fatigue Patient also reports that she feels as though her eyes do not belong there and is weeping through most of the visit. We will trial natural tears 4 times a day as needed if no improvement consider [place] Patient will need outpatient ophthalmology follow up Thank you for allowing me to participate in the care of this patient. Signing off at this time. Please reconsult of any acute concerns or issues arise
--- NOTE | 2025-01-08 13:48 | P.PNPSI_ITS ---
Subjective Subjective Date of Service: 01/08/25 Reason For Visit: Dangerous overmedication Interim History: c/o burning eyes. stressed out about grandmother coming today. c/o MNA. reports no change in RLS Sx. appears a little less sedated today. per staff, crusty eye. 01/02 dep/anx. passive SI. reporting whispering AH days. tearful. Mental Status Exam Mental Status Exam Narrative: calm, cooperative, adequately dressed and groomed. general PMR. speech nml rate, amount, loudness, latency. flattened tone. thoughts linear and logical. affect constricted, hypo-intense, non-labile. mood anxious. no SI/HI/AVH expressed. per staff, SI and AH continue. Diagnostics Vital Signs (24Hr): Vital Signs - 24 hr 01/07/25 20:00 01/07/25 20:30 01/08/25 08:00 Temperature 97.6 F 98.1 F Pulse Rate 116 H 95 Respiratory Rate 20 Blood Pressure 113/76 113/76 104/57 L Pulse Oximetry 97 99 Oxygen Delivery Method Room Air Room Air BMI result Body Mass Index 28.2 Labs 01/05/25 20:29 01/05/25 20:29 Imaging Radiology Impressions: ITS Impressions Head CT 12/30/24 14:36 IMPRESSION: No acute intracranial abnormality. Electronically signed by: Toby Jack MD 12/30/2024 03:54 PM EDT RP Medications Medications Current Medications Acetaminophen (Acetaminophen 325 Mg Tablet) 650 mg PO Q6H PRN PRN Reason: Headache/Pain, Scale 1-10 Al Hydroxide/Mg Hydroxide (Magnesium Hydrox/Alum Hydrox 30 Ml Oral.Susp) 30 ml PO Q6H PRN PRN Reason: Heartburn/Nausea Clonazepam (Clonazepam 1 Mg Tablet) 1 mg PO BEDTIME [facility] Last Admin: 01/07/25 20:30 Dose: 1 mg Clonazepam (Clonazepam 0.5 Mg Tablet) 0.5 mg PO BID@0900,1500 [facility] Last Admin: 01/08/25 09:07 Dose: 0.5 mg Cyclobenzaprine HCl (Cyclobenzaprine Hcl 10 Mg Tablet) 10 mg PO TID PRN PRN Reason: Muscle Spasm Last Admin: 01/06/25 21:13 Dose: 10 mg Divalproex Sodium (Divalproex Sodium Er 500 Mg Tab.Er.24h) 1,500 mg PO BEDTIME [facility] Last Admin: 01/07/25 20:30 Dose: 1,500 mg Gabapentin (Gabapentin 300 Mg Capsule) 300 mg PO DAILY@1500 [facility] Last Admin: 01/07/25 14:41 Dose: 300 mg Gabapentin (Gabapentin 300 Mg Capsule) 900 mg PO BEDTIME [facility] Last Admin: 01/07/25 20:29 Dose: 900 mg Hydroxyzine HCl (Hydroxyzine Hcl 50 Mg Tablet) 50 mg PO TID PRN PRN Reason: Anxiety Levothyroxine Sodium (Levothyroxine Sodium 50 Mcg Tablet) 50 mcg PO DAILY@0600 [facility] Last Admin: 01/08/25 06:28 Dose: 50 mcg [place] Carbonate ([place] Carbonate Er 300 Mg Tablet.Er) 600 mg PO DAILY [facility] Last Admin: 01/08/25 09:07 Dose: 600 mg [place] Carbonate ([place] Carbonate Er 450 Mg Tablet.Er) 900 mg PO BEDTIME [facility] Last Admin: 01/07/25 20:30 Dose: 900 mg Magnesium Hydroxide (Milk Of Magnesia 30 Ml Oral.Susp) 30 ml PO DAILY PRN PRN Reason: Constipation Last Admin: 01/08/25 09:12 Dose: 30 ml Melatonin (Melatonin 3 Mg Tablet) 3 mg PO BEDTIME PRN PRN Reason: insomnia Last Admin: 01/04/25 21:24 Dose: 3 mg Nicotine Polacrilex (Nicotine Polacrilex 2 Mg Gum) 4 mg BUCCAL Q2H PRN PRN Reason: Nicotine Cravings Pt Own (Linaclotide ([Linzess] 145 Mcg)) 145 mcg PO DAILY@0600 [facility] Last Admin: 01/08/25 06:29 Dose: 145 mcg Olanzapine (Olanzapine 7.5 Mg Tablet) 15 mg PO BEDTIME [facility] Last Admin: 01/07/25 20:29 Dose: 15 mg Polyethylene Glycol (Polyethylene Glycol 3350 17 Gm Powd.Pack) 17 gm PO DAILY PRN PRN Reason: Constipation Last Admin: 01/07/25 18:10 Dose: 17 gm Prazosin HCl (Prazosin Hcl 1 Mg Capsule) 2 mg PO BEDTIME [facility]; Protocol Last Admin: 01/07/25 20:30 Dose: 2 mg Allergies Allergies Allergy/AdvReac Type Severity Reaction Status Date / Time No Known Allergies (No Known Allergy Verified 12/30/24 12:55 Allergies*) Assessment & Plan Assessment & Plan (1) Suicidal ideation: Status: Acute Code(s): R45.851 - Suicidal ideations (2) Bipolar 1 disorder: Status: Acute Code(s): F31.9 - Bipolar disorder, unspecified Plan tentative Dx of bipolar disorder versus schizoaffective disorder bipolar type increase VPA to 1500 mg QHS and add lithium 600 BID for mood stabilization. decrease klonopin to 1 TID due to oversedation; inexplicably, despite being prescribed klonopin 4 mg daily, pt's utox is benzo NEG. DC cogentin as not indicated and likely exacerbating constipation. RLS complaint - check iron studies. possibly akathisia (for which cogentin is not helpful). T/C decrease in zyprexa dosing, beta clarita, or alternate antipsychotic. also T/C gabapentin, iron supplementation, or other if RLS Dx is made. hypothyroid - check TFTs check inflammatory markers 01/01: Patient notes that she is anxious and depressed. She reports no change in her mood since recent medications adjustment. She endorses passive SI without a plan. She notes positive AH with tapping and scratching sounds all day long. The voices will scream and yell her, and commanding, whenever she does not take her Zyprexa. She denies HI or VH. Continue current treatment regimen. 01/02: screening labs negative. decrease morning zyprexa from 10 mg to 5 mg to try to reduce PMR/sluggishness. call grandmother at [phone] (h) or [phone] (c) Joslyn Ohara. 01/03: ammonia 39. start gabapentin 300/600 for RLS Sx. otherwise continue current mgmt. reports noting more irritability this morning since decreasing zyprexa from 10 mg to 5 mg daily. does not appear any less sluggish/sedated than on 10 mg, however. will try to continue to lower zyprexa dosing out of concern for akathisia rather than restless legs. plan to cut klonopin to 2 mg daily as of monday. case discussed at length with grandmother Joslyn. 01/04/25: She appeared to be sedated, did not sleep well last night per her own report. Was compliant with medication except for MiraLax that she reports she does not needed. Changes into PRN instead. Continue to titrate medication down. She used to clonazepam total of 4 mg daily. Current dose is 3 mg a day. We will continue to taper down. She is more visible later on of the day but was sedated earlier. Reports tabbing and scratching souunds whie on medication. Current dose of Zyprexa total 20 mg/daily. 01/05/25: She does not agree with benzo taper, flat affect, tearful when discuss about benzos which she rather to do with long-term side effects and living with anxiety. Restless legs continue to bother her. History of propranolol which was not helpful. + SI with plan to jump out of the window in context of anxious related to benzo taper discussion. Able to seek out staff for help. Nursing notified. Flat affect, less sedated. Visible, attended groups, + AH: tabbing and stretching sounds. 01/06: continue benzos as they are for now. increase lithium regimen to 600/900 (level 0.60 on 1200 mg daily). RLS Sx continue, increase HS gabapentin to 900 mg. DC morning zyprexa as AH under adequate control. otherwise continue current mgmt. 01/07: c/o sleepwalking episode last night. decides to continue with current HS regimen in any case. presses to decrease klonopin from 1 TID to 0.5/0.5/1 as of this afternoon, which is done. otherwise continue current regimen. 01/08: no sleepwalking last night. no change in RLS Sx. c/o MNA, but falls back asleep. continue current mgmt for now. Reason for continued inpatient stay Substantial Risk for: inability to function and rapid decompensation Time Spent With Patient Time: Total time managing care of this patient today __25__ minutes.
[2025-01-08 20:00] VITALS: BP 126/72; PULSE 111; RESP 16; TEMP 36.3; O2SAT 100
[2025-01-08] MEDS: OLANZapine 7.5 MG TABLET 15 MG PO (20:40)
[2025-01-09 07:00] VITALS: BMI 30.6
[2025-01-09] MEDS: LINACLOTIDE 145 MCG 145 EACH PO (07:17)
[2025-01-09 08:00] VITALS: BP 111/51; PULSE 89; RESP 18; TEMP 36.5; O2SAT 98
--- NOTE | 2025-01-09 16:55 | P.PNPSI_ITS ---
Subjective Subjective Date of Service: 01/09/25 Reason For Visit: Dangerous overmedication Interim History: c/o gaining weight, poor sleep, RLS Sx. depressed. tearful. very protracted and circular interview re concern for her anxiety and coming down on klonopin. agrees to begin gabapentin taper as that has not been helpful for RLS Sx. agreeable to neuro consult for RLS eval. per staff, slept 8 hours. dep/anx/flat. attended 1 group. laughing and joking eves. Mental Status Exam Mental Status Exam Narrative: calm, cooperative, adequately dressed and groomed. less PMR. speech nml rate, amount, loudness, latency. flattened tone. thoughts linear and logical, although somewhat perseverative. affect constricted, hypo-intense, tearful. mood anxious and depressed. no SI/HI/AVH expressed. per staff, SI and AH continue. Diagnostics Vital Signs (24Hr): Vital Signs - 24 hr 01/08/25 20:00 01/09/25 08:00 Temperature 97.4 F 97.7 F Pulse Rate 111 H 89 Respiratory Rate 16 18 Blood Pressure 126/72 111/51 L Pulse Oximetry 100 98 Oxygen Delivery Method Room Air Room Air BMI result Body Mass Index 30.6 Labs 01/05/25 20:29 01/05/25 20:29 Imaging Radiology Impressions: ITS Impressions Head CT 12/30/24 14:36 IMPRESSION: No acute intracranial abnormality. Electronically signed by: Toby Jack MD 12/30/2024 03:54 PM EDT Medications Medications Current Medications Acetaminophen (Acetaminophen 325 Mg Tablet) 650 mg PO Q6H PRN PRN Reason: Headache/Pain, Scale 1-10 Al Hydroxide/Mg Hydroxide (Magnesium Hydrox/Alum Hydrox 30 Ml Oral.Susp) 30 ml PO Q6H PRN PRN Reason: Heartburn/Nausea Artificial Tears (Artificial Tears 15 Ml Drops) 2 drop EYE-BOTH QID [facility] Last Admin: 01/09/25 14:15 Dose: Not Given Clonazepam (Clonazepam 1 Mg Tablet) 1 mg PO BEDTIME [facility] Last Admin: 01/08/25 20:40 Dose: 1 mg Clonazepam (Clonazepam 0.5 Mg Tablet) 0.5 mg PO BID@0900,1500 [facility] Last Admin: 01/09/25 14:14 Dose: 0.5 mg Cyclobenzaprine HCl (Cyclobenzaprine Hcl 10 Mg Tablet) 10 mg PO TID PRN PRN Reason: Muscle Spasm Last Admin: 01/09/25 02:46 Dose: 10 mg Divalproex Sodium (Divalproex Sodium Er 500 Mg Tab.Er.24h) 1,500 mg PO BEDTIME [facility] Last Admin: 01/08/25 20:39 Dose: 1,500 mg Gabapentin (Gabapentin 300 Mg Capsule) 300 mg PO DAILY@1500 [facility] Last Admin: 01/09/25 14:13 Dose: 300 mg Gabapentin (Gabapentin 300 Mg Capsule) 600 mg PO BEDTIME [facility] Hydroxyzine HCl (Hydroxyzine Hcl 50 Mg Tablet) 50 mg PO TID PRN PRN Reason: Anxiety Last Admin: 01/09/25 14:54 Dose: 50 mg Levothyroxine Sodium (Levothyroxine Sodium 50 Mcg Tablet) 50 mcg PO DAILY@0600 [facility] Last Admin: 01/09/25 07:17 Dose: 50 mcg [place] Carbonate ([place] Carbonate Er 300 Mg Tablet.Er) 600 mg PO DAILY [facility] Last Admin: 01/09/25 08:19 Dose: 600 mg [place] Carbonate ([place] Carbonate Er 450 Mg Tablet.Er) 900 mg PO BEDTIME [facility] Last Admin: 01/08/25 20:39 Dose: 900 mg Magnesium Hydroxide (Milk Of Magnesia 30 Ml Oral.Susp) 30 ml PO DAILY PRN PRN Reason: Constipation Last Admin: 01/08/25 09:12 Dose: 30 ml Melatonin (Melatonin 3 Mg Tablet) 3 mg PO BEDTIME PRN PRN Reason: insomnia Last Admin: 01/04/25 21:24 Dose: 3 mg Nicotine Polacrilex (Nicotine Polacrilex 2 Mg Gum) 4 mg BUCCAL Q2H PRN PRN Reason: Nicotine Cravings Pt Own (Linaclotide ([Linzess] 145 Mcg)) 145 mcg PO DAILY@0600 [facility] Last Admin: 01/09/25 07:17 Dose: 145 mcg Olanzapine (Olanzapine 7.5 Mg Tablet) 15 mg PO BEDTIME [facility] Last Admin: 01/08/25 20:40 Dose: 15 mg Polyethylene Glycol (Polyethylene Glycol 3350 17 Gm Powd.Pack) 17 gm PO DAILY PRN PRN Reason: Constipation Last Admin: 01/07/25 18:10 Dose: 17 gm Prazosin HCl (Prazosin Hcl 1 Mg Capsule) 2 mg PO BEDTIME [facility]; Protocol Last Admin: 01/08/25 20:40 Dose: 2 mg Allergies Allergies Allergy/AdvReac Type Severity Reaction Status Date / Time No Known Allergies (No Known Allergy Verified 12/30/24 12:55 Allergies*) Assessment & Plan Assessment & Plan (1) Eye irritation: Status: Acute Code(s): H57.89 - Other specified disorders of eye and adnexa Assessment and Plan: Bipolar 1 disorder/suicidal ideation Treatment per psychiatric team Eye iirritation No obvious signs of injury, no drainage, no redness Suspect patient is straining to read which may be causing fatigue Patient also reports that she feels as though her eyes do not belong there and is weeping through most of the visit. We will trial natural tears 4 times a day as needed if no improvement consider [place] Patient will need outpatient ophthalmology follow up (2) Bipolar 1 disorder: Status: Acute Code(s): F31.9 - Bipolar disorder, unspecified (3) Suicidal ideation: Status: Acute Code(s): R45.851 - Suicidal ideations Plan tentative Dx of bipolar disorder versus schizoaffective disorder bipolar type increase VPA to 1500 mg QHS and add lithium 600 BID for mood stabilization. decrease klonopin to 1 TID due to oversedation; inexplicably, despite being prescribed klonopin 4 mg daily, pt's utox is benzo NEG. DC cogentin as not indicated and likely exacerbating constipation. RLS complaint - check iron studies. possibly akathisia (for which cogentin is not helpful). T/C decrease in zyprexa dosing, beta clarita, or alternate antipsychotic. also T/C gabapentin, iron supplementation, or other if RLS Dx is made. hypothyroid - check TFTs check inflammatory markers 01/01: Patient notes that she is anxious and depressed. She reports no change in her mood since recent medications adjustment. She endorses passive SI without a plan. She notes positive AH with tapping and scratching sounds all day long. The voices will scream and yell her, and commanding, whenever she does not take her Zyprexa. She denies HI or VH. Continue current treatment regimen. 01/02: screening labs negative. decrease morning zyprexa from 10 mg to 5 mg to try to reduce PMR/sluggishness. call grandmother at [phone] (h) or [phone] (c) Joslyn Ohara. 01/03: ammonia 39. start gabapentin 300/600 for RLS Sx. otherwise continue current mgmt. reports noting more irritability this morning since decreasing zyprexa from 10 mg to 5 mg daily. does not appear any less sluggish/sedated than on 10 mg, however. will try to continue to lower zyprexa dosing out of concern for akathisia rather than restless legs. plan to cut klonopin to 2 mg daily as of monday. case discussed at length with grandmother Joslyn. 01/04/25: She appeared to be sedated, did not sleep well last night per her own report. Was compliant with medication except for MiraLax that she reports she does not needed. Changes into PRN instead. Continue to titrate medication down. She used to clonazepam total of 4 mg daily. Current dose is 3 mg a day. We will continue to taper down. She is more visible later on of the day but was sedated earlier. Reports tabbing and scratching souunds whie on medication. Current dose of Zyprexa total 20 mg/daily. 01/05/25: She does not agree with benzo taper, flat affect, tearful when discuss about benzos which she rather to do with long-term side effects and living with anxiety. Restless legs continue to bother her. History of propranolol which was not helpful. + SI with plan to jump out of the window in context of anxious related to benzo taper discussion. Able to seek out staff for help. Nursing notified. Flat affect, less sedated. Visible, attended groups, + AH: tabbing and stretching sounds. 01/06: continue benzos as they are for now. increase lithium regimen to 600/900 (level 0.60 on 1200 mg daily). RLS Sx continue, increase HS gabapentin to 900 mg. DC morning zyprexa as AH under adequate control. otherwise continue current mgmt. 01/07: c/o sleepwalking episode last night. decides to continue with current HS regimen in any case. presses to decrease klonopin from 1 TID to 0.5/0.5/1 as of this afternoon, which is done. otherwise continue current regimen. 01/08: no sleepwalking last night. no change in RLS Sx. c/o MNA, but falls back asleep. continue current mgmt for now. 01/09: c/o poor sleep, weight gain, depression, RLS. agreeable to begin gabapentin taper, decrease to 300/600 as of tonight. otherwise continue current mgmt. family mtg tomorrow. T/C pramipexole. neuro consultation pending. Reason for continued inpatient stay Substantial Risk for: harm to self, inability to function and rapid decompensation Time Spent With Patient Time: Total time managing care of this patient today __35__ minutes.
[2025-01-09 20:10] VITALS: BP 123/62; PULSE 112; RESP 14; TEMP 36.6; O2SAT 98
[2025-01-09] MEDS: Artificial Tears 15 ML DROPS 2 DROP EYE-BOTH (21:21)
[2025-01-09 21:23] VITALS: BP 121/75
[2025-01-09] MEDS: OLANZapine 7.5 MG TABLET 15 MG PO (21:23)
[2025-01-10] MEDS: LINACLOTIDE 145 MCG 145 EACH PO (06:08)
[2025-01-10 08:00] VITALS: BP 98/54; PULSE 99; RESP 18; TEMP 36.4; O2SAT 99
[2025-01-10] MEDS: Artificial Tears 15 ML DROPS 2 DROP EYE-BOTH ×3 (08:53→20:55)
--- NOTE | 2025-01-10 11:35 | PM.NEUROCN ---
History of Present Illness Data of Consult Service Date: 01/10/25 Primary Care Provider: [facility] Reason for consult: Restless leg syndrome 29 years old woman with psychiatric diagnoses of bipolar disorder and schizoaffective disorder taking lithium and olanzapine complain of problem with a legs. She said that it started about a year ago and she had not started any new medicine at that time and had been taking same medicines for awhile. She complain of an uncomfortable feeling in her legs like jumpy legs when she would have to get up and walk around. Her partner started to complain that her legs were jumping and sometime she would have to sleep in a separate bed. She was prescribed gabapentin 300 mg, which did not help. She said that Flexeril helped. There was no significant back pain or any change in bowel bladder pattern. Review of Systems Review of Systems: As per HPI [facility] Past Medical History Medical History (Updated 01/10/25 @ 11:38 by Azul Montano MD) Bipolar 1 disorder Social History Social History Household Members: Family Household Members Other:: Grandparents, 2 kids Housing: House Do you presently have visiting nurse or other home services: No Alcohol intake: never Patient Tobacco Use Status: Never used Tobacco Smoked in Last 30 Days: No Use of substances other than those prescribed or required for medical reasons: No Substance Use Type: Marijuana Currently Displaying Signs/Symptoms of Drug Intoxication Withdrawal: No Have you been hit, kicked, punched, or otherwise hurt by someone within the past year? If so, by whom?: No Do you feel safe in your current relationship?: Yes Is there a partner from a previous relationship who is making you feel unsafe now?: No Are you made to feel afraid or neglected: No Advance Directives: No Advance Directives Information Provided: Yes Do you have thoughts of harming others: None Do you have a plan to hurt others: No Plan Recently lost weight without trying: No Eating poorly because of decreased appetite: No Nutrition Risks: No Nutritional Risk Patient : No service: No Sexual orientation: Straight/Heterosexual Meds Allergies Allergy/AdvReac Type Severity Reaction Status Date / Time No Known Allergies (No Known Allergy Verified 12/30/24 12:55 Allergies*) Active Medications: Current Medications Acetaminophen (Acetaminophen 325 Mg Tablet) 650 mg PO Q6H PRN PRN Reason: Headache/Pain, Scale 1-10 Al Hydroxide/Mg Hydroxide (Magnesium Hydrox/Alum Hydrox 30 Ml Oral.Susp) 30 ml PO Q6H PRN PRN Reason: Heartburn/Nausea Artificial Tears (Artificial Tears 15 Ml Drops) 2 drop EYE-BOTH QID [facility] Last Admin: 01/10/25 08:53 Dose: 2 drop Clonazepam (Clonazepam 1 Mg Tablet) 1 mg PO BEDTIME [facility] Last Admin: 01/09/25 21:22 Dose: 1 mg Clonazepam (Clonazepam 0.5 Mg Tablet) 0.5 mg PO BID@0900,1500 [facility] Last Admin: 01/10/25 08:52 Dose: 0.5 mg Cyclobenzaprine HCl (Cyclobenzaprine Hcl 10 Mg Tablet) 10 mg PO TID PRN PRN Reason: Muscle Spasm Last Admin: 01/09/25 21:24 Dose: 10 mg Divalproex Sodium (Divalproex Sodium Er 500 Mg Tab.Er.24h) 1,500 mg PO BEDTIME [facility] Last Admin: 01/09/25 21:22 Dose: 1,500 mg Gabapentin (Gabapentin 300 Mg Capsule) 300 mg PO DAILY@1500 [facility] Last Admin: 01/09/25 14:13 Dose: 300 mg Gabapentin (Gabapentin 300 Mg Capsule) 600 mg PO BEDTIME [facility] Last Admin: 01/09/25 21:22 Dose: 600 mg Hydroxyzine HCl (Hydroxyzine Hcl 50 Mg Tablet) 50 mg PO TID PRN PRN Reason: Anxiety Last Admin: 01/09/25 14:54 Dose: 50 mg Levothyroxine Sodium (Levothyroxine Sodium 50 Mcg Tablet) 50 mcg PO DAILY@0600 [facility] Last Admin: 01/10/25 06:08 Dose: 50 mcg [place] Carbonate ([place] Carbonate Er 300 Mg Tablet.Er) 600 mg PO DAILY [facility] [place] Last Admin: 01/10/25 08:51 Dose: 600 mg [place] Carbonate ([place] Carbonate Er 450 Mg Tablet.Er) 900 mg PO BEDTIME [facility] [place] Last Admin: 01/09/25 21:23 Dose: 900 mg Magnesium Hydroxide (Milk Of Magnesia 30 Ml Oral.Susp) 30 ml PO DAILY PRN PRN Reason: Constipation Last Admin: 01/08/25 09:12 Dose: 30 ml Melatonin (Melatonin 3 Mg Tablet) 3 mg PO BEDTIME PRN PRN Reason: insomnia Last Admin: 01/09/25 21:25 Dose: 3 mg Nicotine Polacrilex (Nicotine Polacrilex 2 Mg Gum) 4 mg BUCCAL Q2H PRN PRN Reason: Nicotine Cravings Pt Own (Linaclotide ([Linzess] 145 Mcg)) 145 mcg PO DAILY@0600 [facility] Last Admin: 01/10/25 06:08 Dose: 145 mcg Olanzapine (Olanzapine 7.5 Mg Tablet) 15 mg PO BEDTIME [facility] Last Admin: 01/09/25 21:23 Dose: 15 mg Polyethylene Glycol (Polyethylene Glycol 3350 17 Gm Powd.Pack) 17 gm PO DAILY PRN PRN Reason: Constipation Last Admin: 01/07/25 18:10 Dose: 17 gm Prazosin HCl (Prazosin Hcl 1 Mg Capsule) 2 mg PO BEDTIME [facility]; Protocol Last Admin: 01/09/25 21:23 Dose: 2 mg Home Medications ?Medication ?Instructions ?Recorded ?Confirmed ?Last Taken ?Type clonazepam 1 mg tablet 1 tab PO QID Anxiety 05/23/21 12/30/24 12/30/24 08:00 History benztropine 1 mg tablet 1 mg PO Q12H 12/30/24 12/30/24 12/30/24 08:00 History cyclobenzaprine 10 mg tablet 10 mg PO TID PRN Muscle Spasm 12/30/24 12/30/24 Unknown History dextromethorphan IR 45 1 tab PO DAILY 12/30/24 12/30/24 12/30/24 08:00 History mg-bupropion ER 105 mg biphasic tablet ([place]) divalproex 500 mg tablet,extended 1,000 mg PO BEDTIME 12/30/24 12/30/24 12/29/24 20:00 History release 24 hr hydroxyzine pamoate 50 mg capsule 50 mg PO TID PRN Anxiety 12/30/24 12/30/24 Unknown History levothyroxine 50 mcg tablet 50 mcg PO DAILY 12/30/24 12/30/24 12/30/24 06:30 History linaclotide 145 mcg capsule 145 mcg PO DAILY 12/30/24 12/30/24 12/30/24 08:00 History (Linzess) olanzapine 10 mg disintegrating 10 mg PO DAILY 12/30/24 12/30/24 12/30/24 08:00 History tablet olanzapine 15 mg disintegrating 15 mg PO BEDTIME 12/30/24 12/30/24 12/29/24 21:00 History tablet prazosin 2 mg capsule 2 mg PO BEDTIME 12/30/24 12/30/24 12/29/24 21:00 History Physical Exam Vital Signs: Vital Signs: Last Vital Signs Temp 97.6 F 01/10/25 08:00 Pulse 99 01/10/25 08:00 Resp 18 01/10/25 08:00 BP 98/54 L 01/10/25 08:00 Pulse Ox 99 01/10/25 08:00 O2 Del Method Room Air 01/10/25 08:00 BMI result Body Mass Index 30.6 Neuro: Other: She is alert and awake with normal spontaneity of speech fluency comprehension and flat affect. Facial expression blinking or somewhat diminished. There was no abnormal movement that I detected. Deep tendon reflexes are 1+ with flexor plantars. Extraocular muscles were intact. There was no nystagmus. Speech is normal. Results Labs 01/05/25 20:29 01/05/25 20:29 Labs: Head CT did not reveal any significant abnormality. Cbc revealed mild anemia. Assessment and Plan (1) Restless legs syndrome: Status: Acute 29 years old woman taking lithium and olanzapine started having problem with a legs suggestive of restless legs syndrome. She said that previously she did not have these symptoms and there was no family history of it. This problem might be related to olanzapine. In any case, gabapentin, which is usually tried 1st, did not help. She said that cyclobenzaprine was helping, which with its anticholinergic effects, might not be bed option for her with a amount of antipsychotic she was taking. I suggest starting her on 5 or 10 mg cyclobenzaprine at night. In addition, serum ferritin level is recommended. Anemia is another contributing factor especially low ferritin level. Procedures Date of Service Date of Service: 01/10/25
--- NOTE | 2025-01-10 17:48 | P.PNPSI_ITS ---
Subjective Subjective Date of Service: 01/10/25 Reason For Visit: Dangerous overmedication Interim History: anxious about meeting with grandmother and partner. awake. amenable to continue gabapentin taper. labs monday evening. met with grandmother, pt, and partner for 45 minutes. per staff, +AH of mumbling. Mental Status Exam Mental Status Exam Narrative: calm, cooperative, adequately dressed and groomed. less PMR. speech nml rate, amount, loudness, latency. flattened tone. thoughts linear and logical, although somewhat perseverative. affect constricted, hypo-intense, tearful. mood anxious and depressed. no SI/HI/AVH expressed. per staff, SI and AH continue. Diagnostics Vital Signs (24Hr): Vital Signs - 24 hr 01/09/25 20:10 01/09/25 21:23 01/10/25 08:00 Temperature 97.9 F 97.6 F Pulse Rate 112 H 99 Respiratory Rate 14 18 Blood Pressure 123/62 121/75 98/54 L Pulse Oximetry 98 99 Oxygen Delivery Method Room Air Room Air BMI result Body Mass Index 30.6 Labs 01/05/25 20:29 01/05/25 20:29 Imaging Radiology Impressions: ITS Impressions Head CT 12/30/24 14:36 IMPRESSION: No acute intracranial abnormality. Electronically signed by: Toby Jack MD 12/30/2024 03:54 PM EDT Medications Medications Current Medications Acetaminophen (Acetaminophen 325 Mg Tablet) 650 mg PO Q6H PRN PRN Reason: Headache/Pain, Scale 1-10 Al Hydroxide/Mg Hydroxide (Magnesium Hydrox/Alum Hydrox 30 Ml Oral.Susp) 30 ml PO Q6H PRN PRN Reason: Heartburn/Nausea Artificial Tears (Artificial Tears 15 Ml Drops) 2 drop EYE-BOTH QID [facility] Last Admin: 01/10/25 12:46 Dose: 2 drop Clonazepam (Clonazepam 1 Mg Tablet) 1 mg PO BEDTIME [facility] Last Admin: 01/09/25 21:22 Dose: 1 mg Clonazepam (Clonazepam 0.5 Mg Tablet) 0.5 mg PO BID@0900,1500 [facility] Last Admin: 01/10/25 15:10 Dose: 0.5 mg Cyclobenzaprine HCl (Cyclobenzaprine Hcl 10 Mg Tablet) 10 mg PO TID PRN PRN Reason: Muscle Spasm Last Admin: 01/09/25 21:24 Dose: 10 mg Divalproex Sodium (Divalproex Sodium Er 500 Mg Tab.Er.24h) 1,500 mg PO BEDTIME [facility] Last Admin: 01/09/25 21:22 Dose: 1,500 mg Gabapentin (Gabapentin 300 Mg Capsule) 300 mg PO DAILY@1500 [facility] Last Admin: 01/10/25 15:10 Dose: 300 mg Gabapentin (Gabapentin 300 Mg Capsule) 300 mg PO BEDTIME [facility] Hydroxyzine HCl (Hydroxyzine Hcl 50 Mg Tablet) 50 mg PO TID PRN PRN Reason: Anxiety Last Admin: 01/09/25 14:54 Dose: 50 mg Levothyroxine Sodium (Levothyroxine Sodium 50 Mcg Tablet) 50 mcg PO DAILY@0600 [facility] Last Admin: 01/10/25 06:08 Dose: 50 mcg [place] Carbonate ([place] Carbonate Er 300 Mg Tablet.Er) 600 mg PO DAILY [facility] Last Admin: 01/10/25 08:51 Dose: 600 mg [place] Carbonate ([place] Carbonate Er 450 Mg Tablet.Er) 900 mg PO BEDTIME [facility] Last Admin: 01/09/25 21:23 Dose: 900 mg Magnesium Hydroxide (Milk Of Magnesia 30 Ml Oral.Susp) 30 ml PO DAILY PRN PRN Reason: Constipation Last Admin: 01/08/25 09:12 Dose: 30 ml Melatonin (Melatonin 3 Mg Tablet) 3 mg PO BEDTIME PRN PRN Reason: insomnia Last Admin: 01/09/25 21:25 Dose: 3 mg Nicotine Polacrilex (Nicotine Polacrilex 2 Mg Gum) 4 mg BUCCAL Q2H PRN PRN Reason: Nicotine Cravings Pt Own (Linaclotide ([Linzess] 145 Mcg)) 145 mcg PO DAILY@0600 [facility] Last Admin: 01/10/25 06:08 Dose: 145 mcg Olanzapine (Olanzapine 7.5 Mg Tablet) 15 mg PO BEDTIME [facility] Last Admin: 01/09/25 21:23 Dose: 15 mg Polyethylene Glycol (Polyethylene Glycol 3350 17 Gm Powd.Pack) 17 gm PO DAILY PRN PRN Reason: Constipation Last Admin: 01/07/25 18:10 Dose: 17 gm Prazosin HCl (Prazosin Hcl 1 Mg Capsule) 2 mg PO BEDTIME [facility]; Protocol Last Admin: 01/09/25 21:23 Dose: 2 mg Allergies Allergies Allergy/AdvReac Type Severity Reaction Status Date / Time No Known Allergies (No Known Allergy Verified 12/30/24 12:55 Allergies*) Assessment & Plan Assessment & Plan (1) Restless legs syndrome: Status: Acute Code(s): G25.81 - Restless legs syndrome Assessment and Plan: 29 years old woman taking lithium and olanzapine started having problem with a legs suggestive of restless legs syndrome. She said that previously she did not have these symptoms and there was no family history of it. This problem might be related to olanzapine. In any case, gabapentin, which is usually tried 1st, did not help. She said that cyclobenzaprine was helping, which with its anticholinergic effects, might not be bed option for her with a amount of antipsychotic she was taking. I suggest starting her on 5 or 10 mg cyclobenzaprine at night. In addition, serum ferritin level is recommended. Anemia is another contributing factor especially low ferritin level. (2) Bipolar 1 disorder: Status: Acute Code(s): F31.9 - Bipolar disorder, unspecified (3) Suicidal ideation: Status: Acute Code(s): R45.851 - Suicidal ideations Plan tentative Dx of bipolar disorder versus schizoaffective disorder bipolar type increase VPA to 1500 mg QHS and add lithium 600 BID for mood stabilization. decrease klonopin to 1 TID due to oversedation; inexplicably, despite being prescribed klonopin 4 mg daily, pt's utox is benzo NEG. DC cogentin as not indicated and likely exacerbating constipation. RLS complaint - check iron studies. possibly akathisia (for which cogentin is not helpful). T/C decrease in zyprexa dosing, beta clarita, or alternate antipsychotic. also T/C gabapentin, iron supplementation, or other if RLS Dx is made. hypothyroid - check TFTs check inflammatory markers 01/01: Patient notes that she is anxious and depressed. She reports no change in her mood since recent medications adjustment. She endorses passive SI without a plan. She notes positive AH with tapping and scratching sounds all day long. The voices will scream and yell her, and commanding, whenever she does not take her Zyprexa. She denies HI or VH. Continue current treatment regimen. 01/02: screening labs negative. decrease morning zyprexa from 10 mg to 5 mg to try to reduce PMR/sluggishness. call grandmother at [phone] (h) or [phone] (c) Joslyn Ohraa. 01/03: ammonia 39. start gabapentin 300/600 for RLS Sx. otherwise continue current mgmt. reports noting more irritability this morning since decreasing zyprexa from 10 mg to 5 mg daily. does not appear any less sluggish/sedated than on 10 mg, however. will try to continue to lower zyprexa dosing out of concern for akathisia rather than restless legs. plan to cut klonopin to 2 mg daily as of monday. case discussed at length with grandmother Joslyn. 01/04/25: She appeared to be sedated, did not sleep well last night per her own report. Was compliant with medication except for MiraLax that she reports she does not needed. Changes into PRN instead. Continue to titrate medication down. She used to clonazepam total of 4 mg daily. Current dose is 3 mg a day. We will continue to taper down. She is more visible later on of the day but was sedated earlier. Reports tabbing and scratching souunds whie on medication. Current dose of Zyprexa total 20 mg/daily. 01/05/25: She does not agree with benzo taper, flat affect, tearful when discuss about benzos which she rather to do with long-term side effects and living with anxiety. Restless legs continue to bother her. History of propranolol which was not helpful. + SI with plan to jump out of the window in context of anxious related to benzo taper discussion. Able to seek out staff for help. Nursing notified. Flat affect, less sedated. Visible, attended groups, + AH: tabbing and stretching sounds. 01/06: continue benzos as they are for now. increase lithium regimen to 600/900 (level 0.60 on 1200 mg daily). RLS Sx continue, increase HS gabapentin to 900 mg. DC morning zyprexa as AH under adequate control. otherwise continue current mgmt. 01/07: c/o sleepwalking episode last night. decides to continue with current HS regimen in any case. presses to decrease klonopin from 1 TID to 0.5/0.5/1 as of this afternoon, which is done. otherwise continue current regimen. 01/08: no sleepwalking last night. no change in RLS Sx. c/o MNA, but falls back asleep. continue current mgmt for now. 01/09: c/o poor sleep, weight gain, depression, RLS. agreeable to begin gabapentin taper, decrease to 300/600 as of tonight. otherwise continue current mgmt. family mtg tomorrow. T/C pramipexole. neuro consultation pending. 01/10: family mtg. taper gabapentin. monday phil labs - ordered. continue current mgmt otherwise. Reason for continued inpatient stay Substantial Risk for: harm to self, inability to function and rapid decompensation Time Spent With Patient Time: Total time managing care of this patient today __55__ minutes.
[2025-01-10 20:00] VITALS: BP 118/55; PULSE 101; RESP 14; TEMP 36.2; O2SAT 99
[2025-01-10] MEDS: OLANZapine 7.5 MG TABLET 15 MG PO (20:47)
[2025-01-11] MEDS: LINACLOTIDE 145 MCG 145 EACH PO (06:08)
[2025-01-11 07:38] VITALS: BP 97/50; PULSE 98; RESP 16; TEMP 36.1; O2SAT 98
[2025-01-11] MEDS: Artificial Tears 15 ML DROPS 2 DROP EYE-BOTH ×3 (08:37→21:00)
[2025-01-11 19:15] VITALS: BP 118/63; PULSE 114; RESP 16; TEMP 36.1; O2SAT 99
--- NOTE | 2025-01-11 19:33 | P.PNPSI_ITS ---
Subjective Subjective Date of Service: 01/11/25 Reason For Visit: Dangerous overmedication Interim History: Calm, cooperative during encounter today. Reports increased auditory hallucinations today, anxiety 01/02. Will monitor before any further adjustments. Medication Compliance: Yes Side effects from medications: No Attending Groups: No Review of Systems Acute medical concerns: No Medical Review of Systems: unchanged Mental Status Exam Mental Status Exam Narrative: Appearance: casual attire, adequate grooming and hygiene Behavior: cooperative with encounter Orientation: alert, generally oriented to person, place, time Memory: grossly intact to recent/remote events Attention: able to attend to the encounter discussion Psychomotor Function: no agitation or slowing; no abnormal gestures or movements Speech: normal rate, tone, volume Mood: anxious Affect: constricted Thought Process: coherent Thought Content: denies SI/HI Hallucinations: reports AH, does not appear preoccupied delusions: none evinced Insight: mild impairment Judgment: mild impairment Impulsivity: none noted Diagnostics Vital Signs (24Hr): Vital Signs - 24 hr 01/10/25 20:00 01/11/25 07:38 Temperature 97.2 F 97.0 F Pulse Rate 101 H 98 Respiratory Rate 14 16 Blood Pressure 118/55 L 97/50 L Pulse Oximetry 99 98 Oxygen Delivery Method Room Air Room Air BMI result Body Mass Index 30.6 Labs 01/05/25 20:29 01/05/25 20:29 Imaging Radiology Impressions: ITS Impressions Head CT 12/30/24 14:36 IMPRESSION: No acute intracranial abnormality. Electronically signed by: Toby Jack MD 12/30/2024 03:54 PM EDT Medications Medications Current Medications Acetaminophen (Acetaminophen 325 Mg Tablet) 650 mg PO Q6H PRN PRN Reason: Headache/Pain, Scale 1-10 Al Hydroxide/Mg Hydroxide (Magnesium Hydrox/Alum Hydrox 30 Ml Oral.Susp) 30 ml PO Q6H PRN PRN Reason: Heartburn/Nausea Artificial Tears (Artificial Tears 15 Ml Drops) 2 drop EYE-BOTH QID [facility] Last Admin: 01/11/25 17:32 Dose: 2 drop Clonazepam (Clonazepam 1 Mg Tablet) 1 mg PO BEDTIME [facility] Last Admin: 01/10/25 20:47 Dose: 1 mg Clonazepam (Clonazepam 0.5 Mg Tablet) 0.5 mg PO BID@0900,1500 [facility] Last Admin: 01/11/25 15:24 Dose: 0.5 mg Cyclobenzaprine HCl (Cyclobenzaprine Hcl 10 Mg Tablet) 10 mg PO TID PRN PRN Reason: Muscle Spasm Last Admin: 01/11/25 06:08 Dose: 10 mg Divalproex Sodium (Divalproex Sodium Er 500 Mg Tab.Er.24h) 1,500 mg PO BEDTIME [facility] Last Admin: 01/10/25 20:47 Dose: 1,500 mg Gabapentin (Gabapentin 300 Mg Capsule) 300 mg PO DAILY@1500 [facility] Last Admin: 01/11/25 15:25 Dose: 300 mg Gabapentin (Gabapentin 300 Mg Capsule) 300 mg PO BEDTIME [facility] Last Admin: 01/10/25 20:48 Dose: 300 mg Hydroxyzine HCl (Hydroxyzine Hcl 50 Mg Tablet) 50 mg PO TID PRN PRN Reason: Anxiety Last Admin: 01/10/25 23:54 Dose: 50 mg Levothyroxine Sodium (Levothyroxine Sodium 50 Mcg Tablet) 50 mcg PO DAILY@0600 [facility] Last Admin: 01/11/25 06:10 Dose: 50 mcg [place] Carbonate ([place] Carbonate Er 300 Mg Tablet.Er) 600 mg PO DAILY [facility] Last Admin: 01/11/25 08:36 Dose: 600 mg [place] Carbonate ([place] Carbonate Er 450 Mg Tablet.Er) 900 mg PO BEDTIME [facility] Last Admin: 01/10/25 20:47 Dose: 900 mg Magnesium Hydroxide (Milk Of Magnesia 30 Ml Oral.Susp) 30 ml PO DAILY PRN PRN Reason: Constipation Last Admin: 01/08/25 09:12 Dose: 30 ml Melatonin (Melatonin 3 Mg Tablet) 3 mg PO BEDTIME PRN PRN Reason: insomnia Last Admin: 01/10/25 23:54 Dose: 3 mg Nicotine Polacrilex (Nicotine Polacrilex 2 Mg Gum) 4 mg BUCCAL Q2H PRN PRN Reason: Nicotine Cravings Pt Own (Linaclotide ([Linzess] 145 Mcg)) 145 mcg PO DAILY@0600 [facility] Last Admin: 01/11/25 06:08 Dose: 145 mcg Olanzapine (Olanzapine 7.5 Mg Tablet) 15 mg PO BEDTIME [facility] Last Admin: 01/10/25 20:47 Dose: 15 mg Polyethylene Glycol (Polyethylene Glycol 3350 17 Gm Powd.Pack) 17 gm PO DAILY PRN PRN Reason: Constipation Last Admin: 01/07/25 18:10 Dose: 17 gm Prazosin HCl (Prazosin Hcl 1 Mg Capsule) 2 mg PO BEDTIME [facility]; Protocol Last Admin: 01/10/25 20:47 Dose: 2 mg Allergies Allergies Allergy/AdvReac Type Severity Reaction Status Date / Time No Known Allergies (No Known Allergy Verified 12/30/24 12:55 Allergies*) Assessment & Plan Assessment & Plan (1) Restless legs syndrome: Status: Acute Code(s): G25.81 - Restless legs syndrome Assessment and Plan: 29 years old woman taking lithium and olanzapine started having problem with a legs suggestive of restless legs syndrome. She said that previously she did not have these symptoms and there was no family history of it. This problem might be related to olanzapine. In any case, gabapentin, which is usually tried 1st, did not help. She said that cyclobenzaprine was helping, which with its anticholinergic effects, might not be bed option for her with a amount of antipsychotic she was taking. I suggest starting her on 5 or 10 mg cyclobenzaprine at night. In addition, serum ferritin level is recommended. Anemia is another contributing factor especially low ferritin level. (2) Bipolar 1 disorder: Status: Acute Code(s): F31.9 - Bipolar disorder, unspecified (3) Suicidal ideation: Status: Acute Code(s): R45.851 - Suicidal ideations Plan tentative Dx of bipolar disorder versus schizoaffective disorder bipolar type increase VPA to 1500 mg QHS and add lithium 600 BID for mood stabilization. decrease klonopin to 1 TID due to oversedation; inexplicably, despite being prescribed klonopin 4 mg daily, pt's utox is benzo NEG. DC cogentin as not indicated and likely exacerbating constipation. RLS complaint - check iron studies. possibly akathisia (for which cogentin is not helpful). T/C decrease in zyprexa dosing, beta clarita, or alternate antipsychotic. also T/C gabapentin, iron supplementation, or other if RLS Dx is made. hypothyroid - check TFTs check inflammatory markers 01/01: Patient notes that she is anxious and depressed. She reports no change in her mood since recent medications adjustment. She endorses passive SI without a plan. She notes positive AH with tapping and scratching sounds all day long. The voices will scream and yell her, and commanding, whenever she does not take her Zyprexa. She denies HI or VH. Continue current treatment regimen. 01/02: screening labs negative. decrease morning zyprexa from 10 mg to 5 mg to try to reduce PMR/sluggishness. call grandmother at [phone] (h) or [phone] (c) Joslyn Ohara. 01/03: ammonia 39. start gabapentin 300/600 for RLS Sx. otherwise continue current mgmt. reports noting more irritability this morning since decreasing zyprexa from 10 mg to 5 mg daily. does not appear any less sluggish/sedated than on 10 mg, however. will try to continue to lower zyprexa dosing out of concern for akathisia rather than restless legs. plan to cut klonopin to 2 mg daily as of monday. case discussed at length with grandmother Joslyn. 01/04/25: She appeared to be sedated, did not sleep well last night per her own report. Was compliant with medication except for MiraLax that she reports she does not needed. Changes into PRN instead. Continue to titrate medication down. She used to clonazepam total of 4 mg daily. Current dose is 3 mg a day. We will continue to taper down. She is more visible later on of the day but was sedated earlier. Reports tabbing and scratching souunds whie on medication. Current dose of Zyprexa total 20 mg/daily. 01/05/25: She does not agree with benzo taper, flat affect, tearful when discuss about benzos which she rather to do with long-term side effects and living with anxiety. Restless legs continue to bother her. History of propranolol which was not helpful. + SI with plan to jump out of the window in context of anxious related to benzo taper discussion. Able to seek out staff for help. Nursing notified. Flat affect, less sedated. Visible, attended groups, + AH: tabbing and stretching sounds. 01/06: continue benzos as they are for now. increase lithium regimen to 600/900 (level 0.60 on 1200 mg daily). RLS Sx continue, increase HS gabapentin to 900 mg. DC morning zyprexa as AH under adequate control. otherwise continue current mgmt. 01/07: c/o sleepwalking episode last night. decides to continue with current HS regimen in any case. presses to decrease klonopin from 1 TID to 0.5/0.5/1 as of this afternoon, which is done. otherwise continue current regimen. 01/08: no sleepwalking last night. no change in RLS Sx. c/o MNA, but falls back asleep. continue current mgmt for now. 01/09: c/o poor sleep, weight gain, depression, RLS. agreeable to begin gabapentin taper, decrease to 300/600 as of tonight. otherwise continue current mgmt. family mtg tomorrow. T/C pramipexole. neuro consultation pending. 01/10: family mtg. taper gabapentin. monday phil labs - ordered. continue current mgmt otherwise. 01/11: no change today, will monitor sxs Patient educated on: diagnosis and medication risk/benefits Informed Consent: understands Reason for continued inpatient stay Substantial Risk for: rapid decompensation Time Spent With Patient Time: Total time managing care of this patient today __25__ minutes.
[2025-01-11 20:56] VITALS: BP 118/61
[2025-01-11] MEDS: OLANZapine 7.5 MG TABLET 15 MG PO (20:58)
[2025-01-12] MEDS: LINACLOTIDE 145 MCG 145 EACH PO (06:34)
[2025-01-12 08:00] VITALS: BP 100/54; PULSE 86; RESP 16; TEMP 36.8; O2SAT 99
--- NOTE | 2025-01-12 13:29 | HO.PSYCHPN ---
Subjective Subjective Date of Service: 01/12/25 Reason For Visit: Dangerous overmedication Subjective Notes: Conditional Voluntary Interim History: Seen in meeting room - presents with psychomotor slowing, blunted dysphoric affect. She does not want to go to groups where people talk about feelings. She goes to art group to clear her mind. She has kids ages 3 and 8. She states her last suicidal thought was 2 days ago. Tapping and scratching sounds happening most of the day, she tries to distract herself talking to peers and not being alone. She has been on 15 mg of Zyprexa which she does state causes the voices to be quiet. She states Dr. Santos has been decreasing the dose with her because of concerns for sedation. Reviewed the plan for labwork tonight, she voiced understanding, asked appropriate questions, agreeable to having labwork done. She asked about timing for eventual discharge. Medication Compliance: Yes Side effects from medications: No Attending Groups: Intermittent Review of Systems Acute medical concerns: No Medical Review of Systems: unchanged Mental Status Exam Mental Status Exam Narrative: Appearance: casual attire, adequate grooming and hygiene Behavior: cooperative with encounter Orientation: alert, generally oriented to person, place, time Memory: grossly intact to recent/remote events Attention: able to attend to the encounter discussion Psychomotor Function: no agitation or slowing; no abnormal gestures or movements Speech: slowed Mood: kind of anxious Affect: blunted, with some dysphoria Thought Process: coherent Thought Content: denies SI/HI Hallucinations: denies AVH delusions: none evinced Insight: mild impairment Judgment: mild impairment Impulsivity: none noted Diagnostics Vital Signs (24Hr): Vital Signs - 24 hr 01/11/25 19:15 01/11/25 20:56 01/12/25 08:00 Temperature 97.0 F 98.2 F Pulse Rate 114 H 86 Respiratory Rate 16 16 Blood Pressure 118/63 118/61 100/54 L Pulse Oximetry 99 99 Oxygen Delivery Method Room Air Room Air BMI result Body Mass Index 30.6 Labs 01/05/25 20:29 01/05/25 20:29 Imaging Radiology Impressions: ITS Impressions Head CT 12/30/24 14:36 IMPRESSION: No acute intracranial abnormality. Electronically signed by: Toby Jack MD 12/30/2024 03:54 PM EDT Medications Medications Current Medications Acetaminophen (Acetaminophen 325 Mg Tablet) 650 mg PO Q6H PRN PRN Reason: Headache/Pain, Scale 1-10 Al Hydroxide/Mg Hydroxide (Magnesium Hydrox/Alum Hydrox 30 Ml Oral.Susp) 30 ml PO Q6H PRN PRN Reason: Heartburn/Nausea Artificial Tears (Artificial Tears 15 Ml Drops) 2 drop EYE-BOTH QID [facility] Last Admin: 01/12/25 08:43 Dose: Not Given Clonazepam (Clonazepam 1 Mg Tablet) 1 mg PO BEDTIME [facility] Last Admin: 01/11/25 20:57 Dose: 1 mg Clonazepam (Clonazepam 0.5 Mg Tablet) 0.5 mg PO BID@0900,1500 [facility] Last Admin: 01/12/25 08:42 Dose: 0.5 mg Cyclobenzaprine HCl (Cyclobenzaprine Hcl 10 Mg Tablet) 10 mg PO TID PRN PRN Reason: Muscle Spasm Last Admin: 01/11/25 20:57 Dose: 10 mg Divalproex Sodium (Divalproex Sodium Er 500 Mg Tab.Er.24h) 1,500 mg PO BEDTIME [facility] Last Admin: 01/11/25 20:56 Dose: 1,500 mg Gabapentin (Gabapentin 300 Mg Capsule) 300 mg PO DAILY@1500 [facility] Last Admin: 01/11/25 15:25 Dose: 300 mg Gabapentin (Gabapentin 300 Mg Capsule) 300 mg PO BEDTIME [facility] Last Admin: 01/11/25 20:57 Dose: 300 mg Hydroxyzine HCl (Hydroxyzine Hcl 50 Mg Tablet) 50 mg PO TID PRN PRN Reason: Anxiety Last Admin: 01/10/25 23:54 Dose: 50 mg Levothyroxine Sodium (Levothyroxine Sodium 50 Mcg Tablet) 50 mcg PO DAILY@0600 [facility] Last Admin: 01/12/25 06:34 Dose: 50 mcg [place] Carbonate ([place] Carbonate Er 300 Mg Tablet.Er) 600 mg PO DAILY [facility] Last Admin: 01/12/25 08:42 Dose: 600 mg [place] Carbonate ([place] Carbonate Er 450 Mg Tablet.Er) 900 mg PO BEDTIME [facility] Last Admin: 01/11/25 20:57 Dose: 900 mg Magnesium Hydroxide (Milk Of Magnesia 30 Ml Oral.Susp) 30 ml PO DAILY PRN PRN Reason: Constipation Last Admin: 01/08/25 09:12 Dose: 30 ml Melatonin (Melatonin 3 Mg Tablet) 3 mg PO BEDTIME PRN PRN Reason: insomnia Last Admin: 01/11/25 20:58 Dose: 3 mg Nicotine Polacrilex (Nicotine Polacrilex 2 Mg Gum) 4 mg BUCCAL Q2H PRN PRN Reason: Nicotine Cravings Pt Own (Linaclotide ([Linzess] 145 Mcg)) 145 mcg PO DAILY@0600 [facility] Last Admin: 01/12/25 06:34 Dose: 145 mcg Olanzapine (Olanzapine 7.5 Mg Tablet) 15 mg PO BEDTIME [facility] Last Admin: 01/11/25 20:58 Dose: 15 mg Polyethylene Glycol (Polyethylene Glycol 3350 17 Gm Powd.Pack) 17 gm PO DAILY PRN PRN Reason: Constipation Last Admin: 01/07/25 18:10 Dose: 17 gm Prazosin HCl (Prazosin Hcl 1 Mg Capsule) 2 mg PO BEDTIME [facility]; Protocol Last Admin: 01/11/25 20:56 Dose: 2 mg Allergies Allergies Allergy/AdvReac Type Severity Reaction Status Date / Time No Known Allergies (No Known Allergy Verified 12/30/24 12:55 Allergies*) Assessment & Plan Assessment & Plan (1) Restless legs syndrome: Status: Acute Code(s): G25.81 - Restless legs syndrome Assessment and Plan: 29 years old woman taking lithium and olanzapine started having problem with a legs suggestive of restless legs syndrome. She said that previously she did not have these symptoms and there was no family history of it. This problem might be related to olanzapine. In any case, gabapentin, which is usually tried 1st, did not help. She said that cyclobenzaprine was helping, which with its anticholinergic effects, might not be bed option for her with a amount of antipsychotic she was taking. I suggest starting her on 5 or 10 mg cyclobenzaprine at night. In addition, serum ferritin level is recommended. Anemia is another contributing factor especially low ferritin level. (2) Bipolar 1 disorder: Status: Acute Code(s): F31.9 - Bipolar disorder, unspecified (3) Suicidal ideation: Status: Acute Code(s): R45.851 - Suicidal ideations Plan tentative Dx of bipolar disorder versus schizoaffective disorder bipolar type increase VPA to 1500 mg QHS and add lithium 600 BID for mood stabilization. decrease klonopin to 1 TID due to oversedation; inexplicably, despite being prescribed klonopin 4 mg daily, pt's utox is benzo NEG. DC cogentin as not indicated and likely exacerbating constipation. RLS complaint - check iron studies. possibly akathisia (for which cogentin is not helpful). T/C decrease in zyprexa dosing, beta clarita, or alternate antipsychotic. also T/C gabapentin, iron supplementation, or other if RLS Dx is made. hypothyroid - check TFTs check inflammatory markers 01/01: Patient notes that she is anxious and depressed. She reports no change in her mood since recent medications adjustment. She endorses passive SI without a plan. She notes positive AH with tapping and scratching sounds all day long. The voices will scream and yell her, and commanding, whenever she does not take her Zyprexa. She denies HI or VH. Continue current treatment regimen. 01/02: screening labs negative. decrease morning zyprexa from 10 mg to 5 mg to try to reduce PMR/sluggishness. call grandmother at [phone] (h) or [phone] (c) Joslyn Ohara. 01/03: ammonia 39. start gabapentin 300/600 for RLS Sx. otherwise continue current mgmt. reports noting more irritability this morning since decreasing zyprexa from 10 mg to 5 mg daily. does not appear any less sluggish/sedated than on 10 mg, however. will try to continue to lower zyprexa dosing out of concern for akathisia rather than restless legs. plan to cut klonopin to 2 mg daily as of monday. case discussed at length with grandmother Joslyn. 01/04/25: She appeared to be sedated, did not sleep well last night per her own report. Was compliant with medication except for MiraLax that she reports she does not needed. Changes into PRN instead. Continue to titrate medication down. She used to clonazepam total of 4 mg daily. Current dose is 3 mg a day. We will continue to taper down. She is more visible later on of the day but was sedated earlier. Reports tabbing and scratching souunds whie on medication. Current dose of Zyprexa total 20 mg/daily. 01/05/25: She does not agree with benzo taper, flat affect, tearful when discuss about benzos which she rather to do with long-term side effects and living with anxiety. Restless legs continue to bother her. History of propranolol which was not helpful. + SI with plan to jump out of the window in context of anxious related to benzo taper discussion. Able to seek out staff for help. Nursing notified. Flat affect, less sedated. Visible, attended groups, + AH: tabbing and stretching sounds. 01/06: continue benzos as they are for now. increase lithium regimen to 600/900 (level 0.60 on 1200 mg daily). RLS Sx continue, increase HS gabapentin to 900 mg. DC morning zyprexa as AH under adequate control. otherwise continue current mgmt. 01/07: c/o sleepwalking episode last night. decides to continue with current HS regimen in any case. presses to decrease klonopin from 1 TID to 0.5/0.5/1 as of this afternoon, which is done. otherwise continue current regimen. 01/08: no sleepwalking last night. no change in RLS Sx. c/o MNA, but falls back asleep. continue current mgmt for now. 01/09: c/o poor sleep, weight gain, depression, RLS. agreeable to begin gabapentin taper, decrease to 300/600 as of tonight. otherwise continue current mgmt. family mtg tomorrow. T/C pramipexole. neuro consultation pending. 01/10: family mtg. taper gabapentin. monday phil labs - ordered. continue current mgmt otherwise. 01/11: no change today, will monitor sxs 01/12: labwork tonight as ordered by primary team Patient educated on: diagnosis and medication risk/benefits Informed Consent: understands Reason for continued inpatient stay Substantial Risk for: rapid decompensation Time Spent With Patient Time: Total time managing care of this patient today __20__ minutes.
[2025-01-12 20:00] VITALS: BP 93/55; PULSE 106; RESP 16; TEMP 37; O2SAT 98
[2025-01-12 20:39] LABS: Lithium 0.88 mmol/L (0.60-1.20)
[2025-01-12 20:47] LABS: Alanine Aminotransferase 6 U/L (0-31); Albumin Level 3.9 g/dL (3.5-5.0); Alkaline Phosphatase 59 U/L (39-117); Ammonia 34 umol/L (13-55); Anion Gap 10 (12-20); Aspartate Amino Transferase 15 U/L (5-31); Blood Urea Nitrogen 17 mg/dL (9-16); Calcium 8.9 mg/dL (8.4-10.2); Carbon Dioxide 30 mmol/L (22-29); Chloride 106 mmol/L (96-108); Creatinine Clr Calc Pharmacy 104.6; Estimated Glomerular Filt Rate > 60; Potassium 4.2 mmol/L (3.3-5.1); Sodium 142 mmol/L (135-145); Total Protein 6.4 g/dL (6.5-8.0)
[2025-01-12 21:18] VITALS: BP 117/73
[2025-01-12] MEDS: OLANZapine 7.5 MG TABLET 15 MG PO (21:18)
[2025-01-12] MEDS: Artificial Tears 15 ML DROPS 2 DROP EYE-BOTH (21:20)
[2025-01-13] MEDS: LINACLOTIDE 145 MCG 145 EACH PO (06:21)
[2025-01-13 07:40] VITALS: BP 130/78; PULSE 88; RESP 16; TEMP 37.4; O2SAT 98
[2025-01-13] MEDS: Artificial Tears 15 ML DROPS 2 DROP EYE-BOTH ×3 (08:44→21:05)
--- NOTE | 2025-01-13 15:49 | HO.PSYCHPN ---
Subjective Subjective Date of Service: 01/13/25 Reason For Visit: Dangerous overmedication Interim History: calm, cooperative. less blunted and sedated appearing. c/o anxiety. per staff, taking meds. napping. more visible. eager for DC. slept 8 hours. Mental Status Exam Mental Status Exam Narrative: calm, cooperative, adequately dressed and groomed. less PMR. speech nml rate, amount, loudness, latency. flattened tone. thoughts linear and logical. affect full range, variably intense, non-labile. mood anxious. no SI/HI/AVH expressed. Diagnostics Vital Signs (24Hr): Vital Signs - 24 hr 01/12/25 20:00 01/12/25 21:18 01/13/25 07:40 Temperature 98.6 F 99.3 F Pulse Rate 106 H 88 Respiratory Rate 16 16 Blood Pressure 93/55 L 117/73 130/78 Pulse Oximetry 98 98 Oxygen Delivery Method Room Air Room Air BMI result Body Mass Index 30.6 Labs 01/05/25 20:29 01/12/25 20:20 Labs: Laboratory Results - last 48 hr 01/12/25 20:20 Sodium 142 Potassium 4.2 Chloride 106 Carbon Dioxide 30 H Anion Gap 10 L BUN 17 H Creatinine 0.80 Estim Creat Clear Calc 104.6 Estimated GFR > 60 Random Glucose 108 Calcium 8.9 Total Bilirubin 0.1 Direct Bilirubin < 0.2 AST 15 ALT 6 Alkaline Phosphatase 59 Ammonia 34 Total Protein 6.4 L Albumin 3.9 Valproic Acid 69.3 [place] 0.88 Imaging Radiology Impressions: ITS Impressions Head CT 12/30/24 14:36 IMPRESSION: No acute intracranial abnormality. Electronically signed by: Toby Jack MD 12/30/2024 03:54 PM EDT Medications Medications Current Medications Acetaminophen (Acetaminophen 325 Mg Tablet) 650 mg PO Q6H PRN PRN Reason: Headache/Pain, Scale 1-10 Al Hydroxide/Mg Hydroxide (Magnesium Hydrox/Alum Hydrox 30 Ml Oral.Susp) 30 ml PO Q6H PRN PRN Reason: Heartburn/Nausea Artificial Tears (Artificial Tears 15 Ml Drops) 2 drop EYE-BOTH QID [facility] Last Admin: 01/13/25 13:34 Dose: 2 drop Clonazepam (Clonazepam 1 Mg Tablet) 1 mg PO BEDTIME [facility] Last Admin: 01/12/25 21:19 Dose: 1 mg Clonazepam (Clonazepam 0.5 Mg Tablet) 0.5 mg PO BID@0900,1500 [facility] Last Admin: 01/13/25 08:43 Dose: 0.5 mg Cyclobenzaprine HCl (Cyclobenzaprine Hcl 10 Mg Tablet) 10 mg PO TID PRN PRN Reason: Muscle Spasm Last Admin: 01/11/25 20:57 Dose: 10 mg Divalproex Sodium (Divalproex Sodium Er 500 Mg Tab.Er.24h) 1,500 mg PO BEDTIME [facility] Last Admin: 01/12/25 21:19 Dose: 1,500 mg Gabapentin (Gabapentin 300 Mg Capsule) 300 mg PO BEDTIME [facility] Last Admin: 01/12/25 21:20 Dose: 300 mg Hydroxyzine HCl (Hydroxyzine Hcl 50 Mg Tablet) 50 mg PO TID PRN PRN Reason: Anxiety Last Admin: 01/10/25 23:54 Dose: 50 mg Levothyroxine Sodium (Levothyroxine Sodium 50 Mcg Tablet) 50 mcg PO DAILY@0600 [facility] Last Admin: 01/13/25 06:21 Dose: 50 mcg Trinity Carbonate (Trinity Carbonate Er 300 Mg Tablet.Er) 600 mg PO DAILY [facility] Last Admin: 01/13/25 08:44 Dose: 600 mg Trinity Carbonate (Trinity Carbonate Er 450 Mg Tablet.Er) 900 mg PO BEDTIME [facility] Last Admin: 01/12/25 21:19 Dose: 900 mg Magnesium Hydroxide (Milk Of Magnesia 30 Ml Oral.Susp) 30 ml PO DAILY PRN PRN Reason: Constipation Last Admin: 01/08/25 09:12 Dose: 30 ml Melatonin (Melatonin 3 Mg Tablet) 3 mg PO BEDTIME PRN PRN Reason: insomnia Last Admin: 01/11/25 20:58 Dose: 3 mg Nicotine Polacrilex (Nicotine Polacrilex 2 Mg Gum) 4 mg BUCCAL Q2H PRN PRN Reason: Nicotine Cravings Pt Own (Linaclotide ([Linzess] 145 Mcg)) 145 mcg PO DAILY@0600 [facility] Last Admin: 01/13/25 06:21 Dose: 145 mcg Olanzapine (Olanzapine 7.5 Mg Tablet) 15 mg PO BEDTIME [facility] Last Admin: 01/12/25 21:18 Dose: 15 mg Polyethylene Glycol (Polyethylene Glycol 3350 17 Gm Powd.Pack) 17 gm PO DAILY PRN PRN Reason: Constipation Last Admin: 01/07/25 18:10 Dose: 17 gm Prazosin HCl (Prazosin Hcl 1 Mg Capsule) 2 mg PO BEDTIME [facility]; Protocol Last Admin: 01/12/25 21:18 Dose: 2 mg Allergies Allergies Allergy/AdvReac Type Severity Reaction Status Date / Time No Known Allergies (No Known Allergy Verified 12/30/24 12:55 Allergies*) Assessment & Plan Assessment & Plan (1) Restless legs syndrome: Status: Acute Code(s): G25.81 - Restless legs syndrome Assessment and Plan: 29 years old woman taking lithium and olanzapine started having problem with a legs suggestive of restless legs syndrome. She said that previously she did not have these symptoms and there was no family history of it. This problem might be related to olanzapine. In any case, gabapentin, which is usually tried 1st, did not help. She said that cyclobenzaprine was helping, which with its anticholinergic effects, might not be bed option for her with a amount of antipsychotic she was taking. I suggest starting her on 5 or 10 mg cyclobenzaprine at night. In addition, serum ferritin level is recommended. Anemia is another contributing factor especially low ferritin level. (2) Bipolar 1 disorder: Status: Acute Code(s): F31.9 - Bipolar disorder, unspecified (3) Suicidal ideation: Status: Acute Code(s): R45.851 - Suicidal ideations Plan tentative Dx of bipolar disorder versus schizoaffective disorder bipolar type increase VPA to 1500 mg QHS and add lithium 600 BID for mood stabilization. decrease klonopin to 1 TID due to oversedation; inexplicably, despite being prescribed klonopin 4 mg daily, pt's utox is benzo NEG. DC cogentin as not indicated and likely exacerbating constipation. RLS complaint - check iron studies. possibly akathisia (for which cogentin is not helpful). T/C decrease in zyprexa dosing, beta clarita, or alternate antipsychotic. also T/C gabapentin, iron supplementation, or other if RLS Dx is made. hypothyroid - check TFTs check inflammatory markers 01/01: Patient notes that she is anxious and depressed. She reports no change in her mood since recent medications adjustment. She endorses passive SI without a plan. She notes positive AH with tapping and scratching sounds all day long. The voices will scream and yell her, and commanding, whenever she does not take her Zyprexa. She denies HI or VH. Continue current treatment regimen. 01/02: screening labs negative. decrease morning zyprexa from 10 mg to 5 mg to try to reduce PMR/sluggishness. call grandmother at [phone] (h) or [phone] (c) Joslyn Ohara. 01/03: ammonia 39. start gabapentin 300/600 for RLS Sx. otherwise continue current mgmt. reports noting more irritability this morning since decreasing zyprexa from 10 mg to 5 mg daily. does not appear any less sluggish/sedated than on 10 mg, however. will try to continue to lower zyprexa dosing out of concern for akathisia rather than restless legs. plan to cut klonopin to 2 mg daily as of monday. case discussed at length with grandmother Joslyn. 01/04/25: She appeared to be sedated, did not sleep well last night per her own report. Was compliant with medication except for MiraLax that she reports she does not needed. Changes into PRN instead. Continue to titrate medication down. She used to clonazepam total of 4 mg daily. Current dose is 3 mg a day. We will continue to taper down. She is more visible later on of the day but was sedated earlier. Reports tabbing and scratching souunds whie on medication. Current dose of Zyprexa total 20 mg/daily. 01/05/25: She does not agree with benzo taper, flat affect, tearful when discuss about benzos which she rather to do with long-term side effects and living with anxiety. Restless legs continue to bother her. History of propranolol which was not helpful. + SI with plan to jump out of the window in context of anxious related to benzo taper discussion. Able to seek out staff for help. Nursing notified. Flat affect, less sedated. Visible, attended groups, + AH: tabbing and stretching sounds. 01/06: continue benzos as they are for now. increase lithium regimen to 600/900 (level 0.60 on 1200 mg daily). RLS Sx continue, increase HS gabapentin to 900 mg. DC morning zyprexa as AH under adequate control. otherwise continue current mgmt. 01/07: c/o sleepwalking episode last night. decides to continue with current HS regimen in any case. presses to decrease klonopin from 1 TID to 0.5/0.5/1 as of this afternoon, which is done. otherwise continue current regimen. 01/08: no sleepwalking last night. no change in RLS Sx. c/o MNA, but falls back asleep. continue current mgmt for now. 01/09: c/o poor sleep, weight gain, depression, RLS. agreeable to begin gabapentin taper, decrease to 300/600 as of tonight. otherwise continue current mgmt. family mtg tomorrow. T/C pramipexole. neuro consultation pending. 01/10: family mtg. taper gabapentin. monday phil labs - ordered. continue current mgmt otherwise. 01/11: no change today, will monitor sxs 01/12: labwork tonight as ordered by primary team 01/13: lithium and depakote in therapeutic range. smiling and joking a bit. still appears tired and slowed, but far better than at admission. continue gabapentin taper, decreasing 300 BID to be just 300 QHS. Reason for continued inpatient stay Substantial Risk for: inability to function and rapid decompensation Time Spent With Patient Time: Total time managing care of this patient today __25__ minutes.
[2025-01-13 20:00] VITALS: BP 99/60; PULSE 101; RESP 14; TEMP 37.4; O2SAT 97
[2025-01-13 21:10] VITALS: BP 99/60
[2025-01-13] MEDS: OLANZapine 7.5 MG TABLET 15 MG PO (21:10)
[2025-01-14] MEDS: LINACLOTIDE 145 MCG 145 EACH PO (06:25)
[2025-01-14 07:44] VITALS: BP 99/55; PULSE 80; RESP 20; TEMP 36.6
[2025-01-14] MEDS: Artificial Tears 15 ML DROPS 2 DROP EYE-BOTH ×3 (08:58→21:05)
--- NOTE | 2025-01-14 16:04 | HO.PSYCHPN ---
Subjective Subjective Date of Service: 01/14/25 Reason For Visit: Dangerous overmedication Interim History: continues more awake and alert. flexible affect, able to laugh and smile. agreeable to DC gabapentin, increase prazosin to 3 QHS due to frequent MNA. asking for monday D/C. per staff, +dep/anx. attending groups. dep 6 anx 7. slept 8 hours. note sure if she wants to go back home. Mental Status Exam Mental Status Exam Narrative: calm, cooperative, adequately dressed and groomed. less PMR. speech nml rate, amount, loudness, latency. flattened tone. thoughts linear and logical. affect full range, variably intense, non-labile. mood improved. no SI/HI/AVH expressed. Diagnostics Vital Signs (24Hr): Vital Signs - 24 hr 01/13/25 20:00 01/13/25 21:10 01/14/25 07:44 Temperature 99.3 F 98 F Pulse Rate 101 H 80 Respiratory Rate 14 20 Blood Pressure 99/60 99/60 99/55 L Pulse Oximetry 97 Oxygen Delivery Method Room Air Room Air BMI result Body Mass Index 30.6 Labs 01/05/25 20:29 01/12/25 20:20 Labs: Laboratory Results - last 48 hr 01/12/25 20:20 Sodium 142 Potassium 4.2 Chloride 106 Carbon Dioxide 30 H Anion Gap 10 L BUN 17 H Creatinine 0.80 Estim Creat Clear Calc 104.6 Estimated GFR > 60 Random Glucose 108 Calcium 8.9 Total Bilirubin 0.1 Direct Bilirubin < 0.2 AST 15 ALT 6 Alkaline Phosphatase 59 Ammonia 34 Total Protein 6.4 L Albumin 3.9 Valproic Acid 69.3 [place] 0.88 Imaging Radiology Impressions: ITS Impressions Head CT 12/30/24 14:36 IMPRESSION: No acute intracranial abnormality. Electronically signed by: Toby Jack MD 12/30/2024 03:54 PM EDT Medications Medications Current Medications Acetaminophen (Acetaminophen 325 Mg Tablet) 650 mg PO Q6H PRN PRN Reason: Headache/Pain, Scale 1-10 Al Hydroxide/Mg Hydroxide (Magnesium Hydrox/Alum Hydrox 30 Ml Oral.Susp) 30 ml PO Q6H PRN PRN Reason: Heartburn/Nausea Artificial Tears (Artificial Tears 15 Ml Drops) 2 drop EYE-BOTH QID [facility] Last Admin: 01/14/25 13:29 Dose: Not Given Clonazepam (Clonazepam 1 Mg Tablet) 1 mg PO BEDTIME [facility] Last Admin: 01/13/25 21:08 Dose: 1 mg Clonazepam (Clonazepam 0.5 Mg Tablet) 0.5 mg PO BID@0900,1500 [facility] Last Admin: 01/14/25 14:56 Dose: 0.5 mg Cyclobenzaprine HCl (Cyclobenzaprine Hcl 10 Mg Tablet) 10 mg PO TID PRN PRN Reason: Muscle Spasm Last Admin: 01/13/25 21:11 Dose: 10 mg Divalproex Sodium (Divalproex Sodium Er 500 Mg Tab.Er.24h) 1,500 mg PO BEDTIME [facility] Last Admin: 01/13/25 21:09 Dose: 1,500 mg Hydroxyzine HCl (Hydroxyzine Hcl 50 Mg Tablet) 50 mg PO TID PRN PRN Reason: Anxiety Last Admin: 01/10/25 23:54 Dose: 50 mg Levothyroxine Sodium (Levothyroxine Sodium 50 Mcg Tablet) 50 mcg PO DAILY@0600 [facility] Last Admin: 01/14/25 06:25 Dose: 50 mcg [place] Carbonate ([place] Carbonate Er 300 Mg Tablet.Er) 600 mg PO DAILY [facility] Last Admin: 01/14/25 08:56 Dose: 600 mg [place] Carbonate ([place] Carbonate Er 450 Mg Tablet.Er) 900 mg PO BEDTIME [facility] Last Admin: 01/13/25 21:09 Dose: 900 mg Magnesium Hydroxide (Milk Of Magnesia 30 Ml Oral.Susp) 30 ml PO DAILY PRN PRN Reason: Constipation Last Admin: 01/08/25 09:12 Dose: 30 ml Melatonin (Melatonin 3 Mg Tablet) 3 mg PO BEDTIME PRN PRN Reason: insomnia Last Admin: 01/11/25 20:58 Dose: 3 mg Nicotine Polacrilex (Nicotine Polacrilex 2 Mg Gum) 4 mg BUCCAL Q2H PRN PRN Reason: Nicotine Cravings Pt Own (Linaclotide ([Linzess] 145 Mcg)) 145 mcg PO DAILY@0600 [facility] Last Admin: 01/14/25 06:25 Dose: 145 mcg Olanzapine (Olanzapine 7.5 Mg Tablet) 15 mg PO BEDTIME [facility] Last Admin: 01/13/25 21:10 Dose: 15 mg Polyethylene Glycol (Polyethylene Glycol 3350 17 Gm Powd.Pack) 17 gm PO DAILY PRN PRN Reason: Constipation Last Admin: 01/07/25 18:10 Dose: 17 gm Prazosin HCl (Prazosin Hcl 1 Mg Capsule) 3 mg PO BEDTIME [facility]; Protocol Allergies Allergies Allergy/AdvReac Type Severity Reaction Status Date / Time No Known Allergies (No Known Allergy Verified 12/30/24 12:55 Allergies*) Assessment & Plan Assessment & Plan (1) Restless legs syndrome: Status: Acute Code(s): G25.81 - Restless legs syndrome Assessment and Plan: 29 years old woman taking lithium and olanzapine started having problem with a legs suggestive of restless legs syndrome. She said that previously she did not have these symptoms and there was no family history of it. This problem might be related to olanzapine. In any case, gabapentin, which is usually tried 1st, did not help. She said that cyclobenzaprine was helping, which with its anticholinergic effects, might not be bed option for her with a amount of antipsychotic she was taking. I suggest starting her on 5 or 10 mg cyclobenzaprine at night. In addition, serum ferritin level is recommended. Anemia is another contributing factor especially low ferritin level. (2) Bipolar 1 disorder: Status: Acute Code(s): F31.9 - Bipolar disorder, unspecified (3) Suicidal ideation: Status: Acute Code(s): R45.851 - Suicidal ideations Plan tentative Dx of bipolar disorder versus schizoaffective disorder bipolar type increase VPA to 1500 mg QHS and add lithium 600 BID for mood stabilization. decrease klonopin to 1 TID due to oversedation; inexplicably, despite being prescribed klonopin 4 mg daily, pt's utox is benzo NEG. DC cogentin as not indicated and likely exacerbating constipation. RLS complaint - check iron studies. possibly akathisia (for which cogentin is not helpful). T/C decrease in zyprexa dosing, beta clarita, or alternate antipsychotic. also T/C gabapentin, iron supplementation, or other if RLS Dx is made. hypothyroid - check TFTs check inflammatory markers 01/01: Patient notes that she is anxious and depressed. She reports no change in her mood since recent medications adjustment. She endorses passive SI without a plan. She notes positive AH with tapping and scratching sounds all day long. The voices will scream and yell her, and commanding, whenever she does not take her Zyprexa. She denies HI or VH. Continue current treatment regimen. 01/02: screening labs negative. decrease morning zyprexa from 10 mg to 5 mg to try to reduce PMR/sluggishness. call grandmother at [phone] (h) or [phone] (c) Joslyn Ohara. 01/03: ammonia 39. start gabapentin 300/600 for RLS Sx. otherwise continue current mgmt. reports noting more irritability this morning since decreasing zyprexa from 10 mg to 5 mg daily. does not appear any less sluggish/sedated than on 10 mg, however. will try to continue to lower zyprexa dosing out of concern for akathisia rather than restless legs. plan to cut klonopin to 2 mg daily as of monday. case discussed at length with grandmother Joslyn. 01/04/25: She appeared to be sedated, did not sleep well last night per her own report. Was compliant with medication except for MiraLax that she reports she does not needed. Changes into PRN instead. Continue to titrate medication down. She used to clonazepam total of 4 mg daily. Current dose is 3 mg a day. We will continue to taper down. She is more visible later on of the day but was sedated earlier. Reports tabbing and scratching souunds whie on medication. Current dose of Zyprexa total 20 mg/daily. 01/05/25: She does not agree with benzo taper, flat affect, tearful when discuss about benzos which she rather to do with long-term side effects and living with anxiety. Restless legs continue to bother her. History of propranolol which was not helpful. + SI with plan to jump out of the window in context of anxious related to benzo taper discussion. Able to seek out staff for help. Nursing notified. Flat affect, less sedated. Visible, attended groups, + AH: tabbing and stretching sounds. 01/06: continue benzos as they are for now. increase lithium regimen to 600/900 (level 0.60 on 1200 mg daily). RLS Sx continue, increase HS gabapentin to 900 mg. DC morning zyprexa as AH under adequate control. otherwise continue current mgmt. 01/07: c/o sleepwalking episode last night. decides to continue with current HS regimen in any case. presses to decrease klonopin from 1 TID to 0.5/0.5/1 as of this afternoon, which is done. otherwise continue current regimen. 01/08: no sleepwalking last night. no change in RLS Sx. c/o MNA, but falls back asleep. continue current mgmt for now. 01/09: c/o poor sleep, weight gain, depression, RLS. agreeable to begin gabapentin taper, decrease to 300/600 as of tonight. otherwise continue current mgmt. family mtg tomorrow. T/C pramipexole. neuro consultation pending. 01/10: family mtg. taper gabapentin. monday phil labs - ordered. continue current mgmt otherwise. 01/11: no change today, will monitor sxs 01/12: labwork tonight as ordered by primary team 01/13: lithium and depakote in therapeutic range. smiling and joking a bit. still appears tired and slowed, but far better than at admission. continue gabapentin taper, decreasing 300 BID to be just 300 QHS. 01/14: continues more awake and alert, able to laugh and smile. DC gabapentin. increase prazosin to 3 QHS for frequent MNA. planning for monday discharge. otherwise continue current mgmt. Reason for continued inpatient stay Substantial Risk for: rapid decompensation Time Spent With Patient Time: Total time managing care of this patient today __25__ minutes.
[2025-01-14 20:00] VITALS: BP 127/64; PULSE 110; RESP 16; TEMP 36.8; O2SAT 98
[2025-01-14] MEDS: OLANZapine 7.5 MG TABLET 15 MG PO (21:01)
[2025-01-14 21:02] VITALS: BP 125/80
[2025-01-15] MEDS: LINACLOTIDE 145 MCG 145 EACH PO (06:19)
[2025-01-15 08:00] VITALS: BP 82/46; PULSE 90; RESP 16; TEMP 36.4; O2SAT 99
[2025-01-15] MEDS: Artificial Tears 15 ML DROPS 2 DROP EYE-BOTH ×3 (08:39→20:12)
--- NOTE | 2025-01-15 12:45 | HO.PSYCHPN ---
Subjective Subjective Date of Service: 01/15/25 Reason For Visit: Dangerous overmedication Interim History: no dizziness. feeling better. planning for monday discharge. FMLA paperwork. per staff, blunted, AH. less sedated. slept 8 hours. Mental Status Exam Mental Status Exam Narrative: calm, cooperative, adequately dressed and groomed. less PMR. speech nml rate, amount, loudness, latency. flattened tone. thoughts linear and logical. affect full range, variably intense, non-labile. mood improved. no SI/HI/AVH expressed. Diagnostics Vital Signs (24Hr): Vital Signs - 24 hr 01/14/25 20:00 01/14/25 21:02 01/15/25 08:00 Temperature 98.3 F 97.6 F Pulse Rate 110 H 90 Respiratory Rate 16 16 Blood Pressure 127/64 125/80 82/46 L Pulse Oximetry 98 99 Oxygen Delivery Method Room Air Room Air BMI result Body Mass Index 30.6 Labs 01/05/25 20:29 01/12/25 20:20 Imaging Radiology Impressions: ITS Impressions Head CT 12/30/24 14:36 IMPRESSION: No acute intracranial abnormality. Electronically signed by: Toby Jack MD 12/30/2024 03:54 PM EDT RP Medications Medications Current Medications Acetaminophen (Acetaminophen 325 Mg Tablet) 650 mg PO Q6H PRN PRN Reason: Headache/Pain, Scale 1-10 Al Hydroxide/Mg Hydroxide (Magnesium Hydrox/Alum Hydrox 30 Ml Oral.Susp) 30 ml PO Q6H PRN PRN Reason: Heartburn/Nausea Artificial Tears (Artificial Tears 15 Ml Drops) 2 drop EYE-BOTH QID [facility] Last Admin: 01/15/25 08:39 Dose: 2 drop Clonazepam (Clonazepam 1 Mg Tablet) 1 mg PO BEDTIME [facility] Last Admin: 01/14/25 21:04 Dose: 1 mg Clonazepam (Clonazepam 0.5 Mg Tablet) 0.5 mg PO BID@0900,1500 [facility] Last Admin: 01/15/25 08:39 Dose: 0.5 mg Cyclobenzaprine HCl (Cyclobenzaprine Hcl 10 Mg Tablet) 10 mg PO TID PRN PRN Reason: Muscle Spasm Last Admin: 01/14/25 21:04 Dose: 10 mg Divalproex Sodium (Divalproex Sodium Er 500 Mg Tab.Er.24h) 1,500 mg PO BEDTIME [facility] Last Admin: 01/14/25 21:03 Dose: 1,500 mg Hydroxyzine HCl (Hydroxyzine Hcl 50 Mg Tablet) 50 mg PO TID PRN PRN Reason: Anxiety Last Admin: 01/10/25 23:54 Dose: 50 mg Levothyroxine Sodium (Levothyroxine Sodium 50 Mcg Tablet) 50 mcg PO DAILY@0600 [facility] Last Admin: 01/15/25 06:19 Dose: 50 mcg [place] Carbonate ([place] Carbonate Er 300 Mg Tablet.Er) 600 mg PO DAILY [facility] Last Admin: 01/15/25 08:39 Dose: 600 mg [place] Carbonate ([place] Carbonate Er 450 Mg Tablet.Er) 900 mg PO BEDTIME [facility] Last Admin: 01/14/25 21:04 Dose: 900 mg Magnesium Hydroxide (Milk Of Magnesia 30 Ml Oral.Susp) 30 ml PO DAILY PRN PRN Reason: Constipation Last Admin: 01/08/25 09:12 Dose: 30 ml Melatonin (Melatonin 3 Mg Tablet) 3 mg PO BEDTIME PRN PRN Reason: insomnia Last Admin: 01/11/25 20:58 Dose: 3 mg Nicotine Polacrilex (Nicotine Polacrilex 2 Mg Gum) 4 mg BUCCAL Q2H PRN PRN Reason: Nicotine Cravings Pt Own (Linaclotide ([Linzess] 145 Mcg)) 145 mcg PO DAILY@0600 [facility] Last Admin: 01/15/25 06:19 Dose: 145 mcg Olanzapine (Olanzapine 7.5 Mg Tablet) 15 mg PO BEDTIME [facility] Last Admin: 01/14/25 21:01 Dose: 15 mg Polyethylene Glycol (Polyethylene Glycol 3350 17 Gm Powd.Pack) 17 gm PO DAILY PRN PRN Reason: Constipation Last Admin: 01/07/25 18:10 Dose: 17 gm Prazosin HCl (Prazosin Hcl 1 Mg Capsule) 3 mg PO BEDTIME [facility]; Protocol Last Admin: 01/14/25 21:02 Dose: 3 mg Allergies Allergies Allergy/AdvReac Type Severity Reaction Status Date / Time No Known Allergies (No Known Allergy Verified 12/30/24 12:55 Allergies*) Assessment & Plan Assessment & Plan (1) Restless legs syndrome: Status: Acute Code(s): G25.81 - Restless legs syndrome Assessment and Plan: 29 years old woman taking lithium and olanzapine started having problem with a legs suggestive of restless legs syndrome. She said that previously she did not have these symptoms and there was no family history of it. This problem might be related to olanzapine. In any case, gabapentin, which is usually tried 1st, did not help. She said that cyclobenzaprine was helping, which with its anticholinergic effects, might not be bed option for her with a amount of antipsychotic she was taking. I suggest starting her on 5 or 10 mg cyclobenzaprine at night. In addition, serum ferritin level is recommended. Anemia is another contributing factor especially low ferritin level. (2) Bipolar 1 disorder: Status: Acute Code(s): F31.9 - Bipolar disorder, unspecified (3) Suicidal ideation: Status: Acute Code(s): R45.851 - Suicidal ideations Plan tentative Dx of bipolar disorder versus schizoaffective disorder bipolar type increase VPA to 1500 mg QHS and add lithium 600 BID for mood stabilization. decrease klonopin to 1 TID due to oversedation; inexplicably, despite being prescribed klonopin 4 mg daily, pt's utox is benzo NEG. DC cogentin as not indicated and likely exacerbating constipation. RLS complaint - check iron studies. possibly akathisia (for which cogentin is not helpful). T/C decrease in zyprexa dosing, beta clarita, or alternate antipsychotic. also T/C gabapentin, iron supplementation, or other if RLS Dx is made. hypothyroid - check TFTs check inflammatory markers 01/01: Patient notes that she is anxious and depressed. She reports no change in her mood since recent medications adjustment. She endorses passive SI without a plan. She notes positive AH with tapping and scratching sounds all day long. The voices will scream and yell her, and commanding, whenever she does not take her Zyprexa. She denies HI or VH. Continue current treatment regimen. 01/02: screening labs negative. decrease morning zyprexa from 10 mg to 5 mg to try to reduce PMR/sluggishness. call grandmother at [phone] (h) or [phone] (c) Joslyn Ohara. 01/03: ammonia 39. start gabapentin 300/600 for RLS Sx. otherwise continue current mgmt. reports noting more irritability this morning since decreasing zyprexa from 10 mg to 5 mg daily. does not appear any less sluggish/sedated than on 10 mg, however. will try to continue to lower zyprexa dosing out of concern for akathisia rather than restless legs. plan to cut klonopin to 2 mg daily as of monday. case discussed at length with grandmother Joslyn. 01/04/25: She appeared to be sedated, did not sleep well last night per her own report. Was compliant with medication except for MiraLax that she reports she does not needed. Changes into PRN instead. Continue to titrate medication down. She used to clonazepam total of 4 mg daily. Current dose is 3 mg a day. We will continue to taper down. She is more visible later on of the day but was sedated earlier. Reports tabbing and scratching souunds whie on medication. Current dose of Zyprexa total 20 mg/daily. 01/05/25: She does not agree with benzo taper, flat affect, tearful when discuss about benzos which she rather to do with long-term side effects and living with anxiety. Restless legs continue to bother her. History of propranolol which was not helpful. + SI with plan to jump out of the window in context of anxious related to benzo taper discussion. Able to seek out staff for help. Nursing notified. Flat affect, less sedated. Visible, attended groups, + AH: tabbing and stretching sounds. 01/06: continue benzos as they are for now. increase lithium regimen to 600/900 (level 0.60 on 1200 mg daily). RLS Sx continue, increase HS gabapentin to 900 mg. DC morning zyprexa as AH under adequate control. otherwise continue current mgmt. 01/07: c/o sleepwalking episode last night. decides to continue with current HS regimen in any case. presses to decrease klonopin from 1 TID to 0.5/0.5/1 as of this afternoon, which is done. otherwise continue current regimen. 01/08: no sleepwalking last night. no change in RLS Sx. c/o MNA, but falls back asleep. continue current mgmt for now. 01/09: c/o poor sleep, weight gain, depression, RLS. agreeable to begin gabapentin taper, decrease to 300/600 as of tonight. otherwise continue current mgmt. family mtg tomorrow. T/C pramipexole. neuro consultation pending. 01/10: family mtg. taper gabapentin. monday phil labs - ordered. continue current mgmt otherwise. 01/11: no change today, will monitor sxs 01/12: labwork tonight as ordered by primary team 01/13: lithium and depakote in therapeutic range. smiling and joking a bit. still appears tired and slowed, but far better than at admission. continue gabapentin taper, decreasing 300 BID to be just 300 QHS. 01/14: continues more awake and alert, able to laugh and smile. DC gabapentin. increase prazosin to 3 QHS for frequent MNA. planning for monday discharge. otherwise continue current mgmt. 01/15: slept well last night, no dizziness. continue current mgmt. planning for monday discharge. [facility] paperwork completed. Reason for continued inpatient stay Substantial Risk for: inability to function and rapid decompensation Time Spent With Patient Time: Total time managing care of this patient today _35___ minutes.
[2025-01-15 20:00] VITALS: BP 141/63; PULSE 108; RESP 218; TEMP 36.2; O2SAT 99
[2025-01-15] MEDS: OLANZapine 7.5 MG TABLET 15 MG PO (20:12)
[2025-01-15 20:18] VITALS: BP 141/63
[2025-01-16] MEDS: LINACLOTIDE 145 MCG 145 EACH PO (06:18)
[2025-01-16 07:00] VITALS: BMI 30.9
[2025-01-16 07:33] VITALS: BP 109/79; PULSE 100; RESP 16; TEMP 36.2; O2SAT 99
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
[2025-01-16 20:00] VITALS: BP 140/69; PULSE 89; RESP 16; TEMP 36.4; O2SAT 96
[2025-01-16] MEDS: OLANZapine 7.5 MG TABLET 15 MG PO (20:59)
[2025-01-16 21:00] VITALS: BP 140/69
[2025-01-17] MEDS: LINACLOTIDE 145 MCG 145 EACH PO (06:13)
[2025-01-17 08:00] VITALS: BP 120/70; PULSE 93; RESP 22; TEMP 36.3; O2SAT 100
== END 2025-01-17 11:02 | disposition home or self-care (01) | DRG 885 ==
LOC: HO.ED 13:18 → HO.PADLT16 12-31 12:03
PROVIDERS: Nurse Practitioner Family; Physician Assistant Medical; Admitting Provider Psychiatry & Neurology Psychiatry; Emergency Provider Emergency Medicine; Visit Provider Psychiatry & Neurology Psychiatry
DX: F31.9 Bipolar disorder, unspecified (principal); R45.851 Suicidal ideations; G25.81 Restless legs syndrome; Z20.822 Contact with and (suspected) exposure to COVID-19; Z79.890 Hormone replacement therapy; Z79.899 Other long term (current) drug therapy
CPT/HCPCS: 36415; 70450; 80048; 80053; 80061; 80076; 80143; 80164; 80178; 80179; 80307; 81001; 81003; 81025; 82140; 82306; 82607; 82728; 82746; 83540; 83735; 84443; 85025; 85652; 86140; 87635; 93005; 99285; S9485

== ENCOUNTER → 2024-12-30 15:17 | Outpatient (BNV) | payer MEDICARE, MEDICAID, SELFPAY | PROVIDERS: Emergency Provider Emergency Medicine; Visit Provider Radiology Diagnostic Radiology | DX: S09.90XA Unspecified injury of head, initial encounter (principal); W19.XXXA Unspecified fall, initial encounter | CPT/HCPCS: 70450 ==

== ENCOUNTER → 2024-12-31 10:41 | Outpatient (BNV) | payer MEDICARE, MEDICAID, SELFPAY | PROVIDERS: Admitting Provider Psychiatry & Neurology Psychiatry; Emergency Provider Emergency Medicine; Visit Provider Internal Medicine Cardiovascular Disease | DX: Z13.6 Encounter for screening for cardiovascular disorders (principal) | CPT/HCPCS: 93010 ==

== ENCOUNTER → 2024-12-31 11:40 | Outpatient (BNV) | payer OTHER, SELFPAY | PROVIDERS: Admitting Provider Psychiatry & Neurology Psychiatry; Emergency Provider Emergency Medicine; Visit Provider Nurse Practitioner Family | DX: H57.89 Other specified disorders of eye and adnexa (principal) | CPT/HCPCS: 99221 ==

== ENCOUNTER → 2024-12-31 11:40 | Outpatient (BNV) | payer OTHER, SELFPAY | PROVIDERS: Admitting Provider Psychiatry & Neurology Psychiatry; Emergency Provider Emergency Medicine; Visit Provider Psychiatry & Neurology Neurology | DX: G25.81 Restless legs syndrome (principal) | CPT/HCPCS: 99222 ==

== ENCOUNTER → 2024-12-31 11:40 | Outpatient (BNV) | payer MEDICARE, MEDICAID, SELFPAY | PROVIDERS: Admitting Provider Psychiatry & Neurology Psychiatry; Emergency Provider Emergency Medicine; Visit Provider Psychiatry & Neurology Psychiatry | DX: F31.9 Bipolar disorder, unspecified (principal); R45.851 Suicidal ideations | CPT/HCPCS: 90792; 99232 ==

== ENCOUNTER 2025-05-16 16:24 | Emergency (ER) | payer OTHER, SELFPAY ==
--- NOTE | ~2025-05-16 | US_ITS ---
CLINICAL HISTORY: . SYncope. Ectopic ? US OB 1st Trimester transabdominal and transvaginal Comparison: None provided Findings: Single intrauterine . MSD: 6.4 mm. CRL: No pole. EGA: 5 weeks, 2 days. CARRIE: January 14, 2024. Normal yolk sac . Cardiac activity: No pole or cardiac activity. Recommend follow-up in 2-3 weeks. No subchorionic bleed. Right ovary 3.0 x 2.1 x 2.2 cm. Unmeasured dominant follicle. Left ovary 2.3 x 1.4 x 1.8 cm. No significant focal abnormality. IMPRESSION: Single intrauterine estimated 5 weeks, 2 days gestational age by today's ultrasound criteria. No pole or cardiac activity, recommend follow-up 2-3 weeks This document has been electronically signed by: Krish Hoffman MD on 05/16/2025 19:14:12
[2025-05-16 16:31] VITALS: BP 140/62; PULSE 76; RESP 18; TEMP 37.1; O2SAT 99; BMI 28.0
--- NOTE | 2025-05-16 16:36 | ECG_ITS ---
Test Reason : DIZZY Blood Pressure : */* mmHG Vent. Rate : 81 BPM Atrial Rate : 81 BPM P-R Int : 126 ms QRS Dur : 80 ms QT Int : 354 ms P-R-T Axes : 27 54 42 degrees QTcB Int : 411 ms Normal sinus rhythm Normal ECG When compared with ECG of 31-Dec-2024 10:41, No significant change was found Referred By: Kumar Orozco Electronically Signed By: JEFFERSON GAGNON
--- NOTE | 2025-05-16 16:37 | ED.GENADULT ---
HPI - General Adult General Chief complaint: Dizziness Stated complaint: Headache/nausea Time Seen by Provider: 05/16/25 18:40 History of Present Illness ED Provider: glory OMALLEY narrative: Author / Clinician: Luis Wadsworth MD (Emergency Medicine) Chief Complaint Severe dizziness/light-headedness for 37 days with one episode of syncope. History of Present Illness The patient reports approximately five weeks (37 days) of persistent light-headedness described as feeling ?super dizzy,? ?wobbly,? off balance, and experiencing a ?big song? to her head. She denies true vertigo. Symptoms appear worse with exertion or standing and improve at rest. On 04/25 () she experienced a single syncopal episode while walking her daughter to school (not after standing up quickly). She lost consciousness suddenly, fell to the ground, and awoke to her daughter calling her. Associated symptoms: - Mild shortness of breath only with exertion. - Diffuse hair loss, poor appetite, and unintentional weight loss over the same time period. - Missed/irregular menstrual period this month; unsure of status. - Denies abdominal pain; only mild cramping reported. Hydration: admits to low water intake (?I don?t drink a lot of water?). Medications: Reports that she has not taken any of her usual daily medications for the past three weeks (see Medication section). All medications had previously been well tolerated and effective. Stressors: recent breakup prior to onset of symptoms; patient feels stress may contribute but states she has never had symptoms this severe from stress alone. Follow-up care: no established primary care provider (PCP) yet; appointment pending later this month. Psychiatric follow-up with Dr. Holt at [facility] scheduled for June. Review of Systems Only positive and directly addressed negatives are documented. - Constitutional: Unintentional weight loss, poor appetite. - Skin/Hair: Diffuse hair loss. - Cardiovascular: Heavy sensation in chest during episodes; denies typical chest pain; no leg swelling; no history of blood clots; no known heart disease. - Respiratory: Mild exertional shortness of breath; no baseline lung disease. - Neurologic: Light-headedness, dizziness, one syncopal episode; feels off balance. - Endocrine: History of hypothyroidism; on levothyroxine but non-adherent x3 weeks. - Gastrointestinal: Denies abdominal pain; daily nausea helped by marijuana. - Genitourinary: Irregular/missed period this month; unsure of ; no hormonal contraception/IUD. - Psychiatric: History of bipolar disorder; recent increased stress; currently off psychotropic medications. - Substance Use: Denies alcohol or illicit drug use; uses marijuana for anxiety/nausea. Past Medical History - Hypothyroidism - Bipolar disorder Medications - Levothyroxine 50 mcg daily (not taken x3 weeks) - [place] ? dose not specified (not taken x3 weeks) - Clonazepam ? dose not specified (not taken x3 weeks) - Divalproex (Depakote) ? dose not specified (not taken x3 weeks) - Melatonin - Prazosin - Cyclobenzaprine - Hydroxyzine Allergies Emergency Department Course EKG completed; physician to review results. Bloodwork obtained (details pending). Physician will reassess after reviewing studies. Assessment & Plan Diagnosis: Dizziness/light-headedness with single syncopal episode ? etiology under evaluation. Plan: - Review EKG and laboratory results to evaluate for cardiac, metabolic, endocrine, or hematologic causes of dizziness and syncope. - Consider orthostatic vital measurement in ED if not already performed. - Discussed importance of hydration; patient encouraged to increase water intake. - Advised patient to contact her psychiatrist regarding restarting lithium, divalproex, and other psychotropic medications; to restart only if tolerated and after discussion with psychiatry. - Patient to follow up with pending PCP appointment later this month for continued evaluation. - test pending/considered given missed period. Disposition Related Data Previous Rx's ?Medication ?Instructions ?Recorded linaclotide 145 mcg capsule 145 mcg PO DAILY@0600 30 days #30 01/13/25 caps clonazepam 0.5 mg tablet 0.5 mg PO BID@0900,1500 30 days 01/16/25 #60 tabs clonazepam 1 mg tablet 1 mg PO BEDTIME 30 days #30 tabs 01/16/25 cyclobenzaprine 10 mg tablet 10 mg PO BID PRN Muscle Spasm 01/16/25 days #60 tabs divalproex 500 mg tablet,extended 1,500 mg (3 x 500 mg) PO BEDTIME 01/16/25 release 24 hr 30 days #90 tabs hydroxyzine pamoate 50 mg capsule 50 mg PO BEDTIME PRN Anxiety 30 01/16/25 days #30 caps levothyroxine 50 mcg tablet 50 mcg PO DAILY 30 days #30 tabs 01/16/25 lithium carbonate 300 mg 600 mg (2 x 300 mg) PO DAILY 30 01/16/25 tablet,extended release days #60 tabs lithium carbonate 450 mg 900 mg (2 x 450 mg) PO BEDTIME 30 01/16/25 tablet,extended release days #60 tabs melatonin 3 mg tablet 3 mg PO BEDTIME PRN insomnia 01/16/25 days #30 tabs olanzapine 7.5 mg tablet 15 mg (2 x 7.5 mg) PO BEDTIME 30 01/16/25 days #60 tabs peg [id number] 1 2 drp ophthalmic (eye) QID 30 days 01/16/25 %-0.2 %-0.2 % eye drops #15 mL (Artificial Tears ([id number])) prazosin 1 mg capsule 3 mg PO BEDTIME 30 days #90 caps 01/16/25 linaclotide 145 mcg capsule 145 mcg PO DAILY 30 days #30 caps 01/17/25 (Linzess) vit no.95-ferrous 1 tab PO DAILY #30 tabs 05/16/25 fumarate 28 mg-folic acid 800 mcg tablet ( Multivitamins) Allergies Allergy/AdvReac Type Severity Reaction Status Date / Time No Known Allergies (No Known Allergy Verified 05/16/25 16:34 Allergies*) [facility] Past Medical History Medical History (Updated 05/17/25 @ 00:01 by Cody Wong) Bipolar 1 disorder Social History Social History Household Members: Family Household Members Other:: Grandparents, 2 kids Housing: House Do you presently have visiting nurse or other home services: No Alcohol intake: never Patient Tobacco Use Status: Never used Tobacco Substance Use Type: Marijuana Advance Directives: No Advance Directives Information Provided: No service: No Sexual orientation: Straight/Heterosexual Physical Exam ED Exam Exam: EXAM: Gen: Alert, awake, well appearing, well hydrated. Head: Atraumatic Eyes: Anicteric, Normal conjunctiva. ENT: Moist mucosa, no pallor. ? Neck: Supple. Skin: ?No observable rash or bruising on exposed or examined skin Respiratory: Breathing comfortably, No distress.Clear to auscultation bilaterally, symmetric chest expansion, No wheeze, rales, ronchi. Cardiovascular: Regular rate and rhythm. No murmurs or rub. Well perfused periphery, warm extremities. No edema. ? Abdominal: No focal tenderness. Soft, no objective distension. No palpable masses or obvious organomegaly. ?No guarding, no rebound tenderness or other peritoneal findings. : No flank tenderness. Neuro: Alert. Gross movement of all extremities intact. ? Psych: Calm. Cooperative. MSK: No grossly visible deformity. Vital signs: See flowsheet Vital Signs: Vital Signs - 24 hr 05/16/25 16:31 05/16/25 19:29 05/16/25 19:31 Temperature 98.8 F Pulse Rate 76 66 63 Respiratory Rate 18 Blood Pressure 140/62 H 107/58 L 114/69 Pulse Oximetry 99 Oxygen Delivery Method Room Air 05/16/25 19:32 05/16/25 19:33 Temperature 98.5 F Pulse Rate 75 75 Respiratory Rate Blood Pressure 123/66 123/66 Pulse Oximetry 99 Oxygen Delivery Method Room Air BMI result Body Mass Index 28.0 Course Course Course Narrative: RME: 29-year-old female presents to ED for syncopal episode. Patient takes intermittent dizziness and today she passed out at a child school. Patient states irregular periods this month. Labs EKG x-ray ordered Medical Decision Making Medical Decision Making MDM Narrative: Medical Decision Making: [age] female with 3 weeks of lower abdominal cramping but primarily here for vague lightheadedness dizziness sensation no nausea vomiting. She incidentally was found to be she did acknowledge missing a. . No vaginal bleeding she has no significant abdominal tenderness and has an IUP no significant or substantial free fluid Preliminary Favored Differential Diagnosis: Early , electrolyte derangement, nonemergent psychiatric problem, thyroid disorder among additional considered etiologies Testing Interpreted Independently: ?See below for details Radiology or Lab testing Results Reviewed: ?See below for details Consults: ?See below for details Independent Historians/External Chart Reviews: ?See below for details Social Determinants of Health Impacting MDM/Planning: ?See below for details Lab Data MDM Lab Attestation statement: I reviewed the patient's lab results. 05/16/25 16:46 05/16/25 16:46 Labs: Lab Results 05/16/25 Range/Units 16:46 WBC 6.2 (4.8-10.8) X10*3/uL RBC 4.49 (4.20-5.50) X10*6/uL Hgb 12.4 (12.0-16.0) g/dl Hct 37.9 (37.0-47.0) % MCV 84.4 (80.0-98.0) fL MCH 27.6 (27.0-33.0) pg MCHC 32.7 (31.0-35.0) g/dl RDW 12.4 (11.0-16.0) % Plt Count 282 D (160-400) X10*3/uL MPV 10.3 (9.4-12.3) fL Immature Gran % (Auto) 0.2 (0.0-0.4) % Neut % (Auto) 58.0 (45-73) % Lymph % (Auto) 31.5 (20-40) % [place] % (Auto) 7.9 (2-11) % Eos % (Auto) 1.6 (0-4) % Baso % (Auto) 0.8 (0-2) % Lymph # (Auto) 2.0 (1.2-4.9) X10*3/uL [place] # (Auto) 0.5 (0.1-1.2) X10*3/uL Eos # (Auto) 0.1 (0.0-0.4) X10*3/uL Baso # (Auto) 0.1 (0.0-0.2) X10*3/uL Abs Immat Gran (auto) 0.01 (0.00-0.03) X10*3/uL Absolute Neuts (auto) 3.6 (2.0-8.3) x10*3/uL Absolute Nucleated RBC 0.000 (0.0-0.012) X10*3/uL Nucleated RBC % (auto) 0.0 (0.0-0.2) /100WBC PT 11.7 (11.2-13.5) SEC INR 1.0 (0.9-1.1) APTT 27.3 (26.7-34.1) SEC Sodium 139 (135-145) mmol/L Potassium 3.9 (3.3-5.1) mmol/L Chloride 107 (96-108) mmol/L Carbon Dioxide 24 (22-29) mmol/L Anion Gap 12 (12-20) BUN 16 (9-16) mg/dL Creatinine 0.69 (0.5-1.4) mg/dL Estim Creat Clear Calc 116.3 Estimated GFR > 60 Random Glucose 107 (60-115) mg/dL Calcium 9.1 (8.4-10.2) mg/dL Total Bilirubin 0.4 (0.0-1.0) mg/dL AST 26 (5-31) U/L ALT 11 (0-31) U/L Alkaline Phosphatase 61 (39-117) U/L Troponin I High Sens < 2.7 (<3.5-17.0) ng/L Total Protein 7.2 (6.5-8.0) g/dL Albumin 4.8 (3.5-5.0) g/dL Beta HCG, Quant 5165 mIU/mL Urine Color Yellow Urine Appearance Cloudy Urine pH 6.5 (5.0-9.0) Ur Specific [place] >= 1.030 H (1.005-1.025) Urine Protein Negative (Neg-Trace) mg/dL Urine Glucose (UA) Negative (Negative) mg/dL Urine Ketones Negative (Negative) mg/dL Urine Blood Trace H (Negative) Urine Nitrite Negative (Negative) Ur Leukocyte Esterase Negative (Negative) Urine RBC 6-10 H (0-2) /HPF Urine WBC 6-10 H (0-5) /HPF Ur Squamous Epith Cells 11-20 (0-2) /HPF Urine Bacteria 3+ (None Seen) Hyaline Casts 0-2 (0-2) /LPF Urine Test POSITIVE H (NEGATIVE) Discharge Plan Discharge Clinical Impression: Early stage of Patient Disposition: Home, Self-Care Instructions: (ED) Additional Instructions: You are . With reassuring lab work and ultrasound. Call [facility] OBGYN for follow up. Drink 1-2 L of fluid at least daily and take vitamin. [phone] Prescriptions: New PNV no.95-ferrous fumarate-FA [ Multivitamins] 28 mg iron- 800 mcg tablet 1 tab PO DAILY Qty: 30 0RF No Action linaclotide 145 mcg Capsule 145 mcg PO DAILY@0600 30 Days Qty: 30 0RF prazosin 1 mg Capsule 3 mg PO BEDTIME 30 Days Qty: 90 1RF Protocol: Hold for SBP< HOLD for SBP < : 90 clonazepam 0.5 mg Tablet 0.5 mg PO BID@0900,1500 30 Days Qty: 60 1RF clonazepam 1 mg Tablet 1 mg PO BEDTIME 30 Days Qty: 30 1RF lithium carbonate 300 mg Tablet Extended Release 600 mg PO DAILY 30 Days Qty: 60 1RF lithium carbonate 450 mg Tablet Extended Release 900 mg PO BEDTIME 30 Days Qty: 60 1RF divalproex 500 mg Tablet Extended Release 24 Hr 1,500 mg PO BEDTIME 30 Days Qty: 90 1RF olanzapine 7.5 mg Tablet 15 mg PO BEDTIME 30 Days Qty: 60 1RF Artificial Tears([id number]) 1-0.2-0.2 % Drops 2 drp ophthalmic (eye) QID 30 Days Qty: 15 1RF melatonin 3 mg Tablet 3 mg PO BEDTIME PRN (Reason: insomnia) 30 Days Qty: 30 1RF cyclobenzaprine 10 mg tablet 10 mg PO BID PRN (Reason: Muscle Spasm) 30 Days Qty: 60 1RF hydroxyzine pamoate 50 mg Capsule 50 mg PO BEDTIME PRN (Reason: Anxiety) 30 Days Qty: 30 1RF levothyroxine 50 mcg tablet 50 mcg PO DAILY 30 Days Qty: 30 1RF Linzess 145 mcg capsule 145 mcg PO DAILY 30 Days Qty: 30 0RF Interventions: ED Discharge Assessment Last Done: 05/16/25 19:53 Discharge Date/Time: 05/16/25 19:54 Print Language: [place]
[2025-05-16 16:55] LABS: Hematocrit 37.9 % (37.0-47.0); Hemoglobin 12.4 g/dl (12.0-16.0); Imm Gran Abs Auto 0.01 X10*3/uL (0.00-0.03); Imm Gran Pct Auto 0.2 % (0.0-0.4); Lymphocytes Absolute Auto 2.0 X10*3/uL (1.2-4.9); MANUAL DIFF FLAG NO; Mean Corpuscular HGB Conc 32.7 g/dl (31.0-35.0); Mean Corpuscular Hemoglobin 27.6 pg (27.0-33.0); Mean Corpuscular Volume 84.4 fL (80.0-98.0); NRBC Abs Auto 0.000 X10*3/uL (0.0-0.012); NRBC Pct Auto 0.0 /100WBC (0.0-0.2); Platelet Count 282 X10*3/uL (160-400); Red Blood Count 4.49 X10*6/uL (4.20-5.50); White Blood Count 6.2 X10*3/uL (4.8-10.8)
[2025-05-16 16:56] LABS: Appearance Urine Cloudy; Glucose Urine UA Negative (Negative); PH 6.5 (5.0-9.0); Specific Gravity - Urine >= 1.030 (1.005-1.025); UMIC TRIGGER UACC YES; UPreg QC Valid YES
[2025-05-16 17:00] LABS: INTERNATIONAL NORM RATIO 1.0 (0.9-1.1); Prothrombin Time 11.7 SEC (11.2-13.5)
[2025-05-16 17:01] LABS: UACC Culture Trigger YES
[2025-05-16 17:03] LABS: Partial Thromboplastin Time 27.3 SEC (26.7-34.1)
[2025-05-16 17:17] LABS: Alanine Aminotransferase 11 U/L (0-31); Albumin Level 4.8 g/dL (3.5-5.0); Alkaline Phosphatase 61 U/L (39-117); Anion Gap 12 (12-20); Aspartate Amino Transferase 26 U/L (5-31); Blood Urea Nitrogen 16 mg/dL (9-16); Calcium 9.1 mg/dL (8.4-10.2); Carbon Dioxide 24 mmol/L (22-29); Chloride 107 mmol/L (96-108); Creatinine Clr Calc Pharmacy 116.3; Estimated Glomerular Filt Rate > 60; Potassium 3.9 mmol/L (3.3-5.1); Sodium 139 mmol/L (135-145); Total Protein 7.2 g/dL (6.5-8.0)
[2025-05-16 17:23] LABS: Troponin-I High Sensitivity < 2.7 ng/L (<3.5-17.0)
[2025-05-16 19:29] VITALS: BP 107/58; PULSE 66
[2025-05-16 19:31] VITALS: BP 114/69; PULSE 63
[2025-05-16 19:32] VITALS: BP 123/66; PULSE 75
[2025-05-16 19:33] VITALS: BP 123/66; PULSE 75; TEMP 36.9; O2SAT 99
[2025-05-16 19:53] VITALS: BP 123/66; PULSE 75; RESP 16; TEMP 36.9; O2SAT 99
== END 2025-05-16 19:54 | disposition home or self-care (01) ==
PROVIDERS: Physician Assistant; Emergency Provider Emergency Medicine
DX: O26.891 Other specified pregnancy related conditions, first trimester (principal); R55 Syncope and collapse; R25.2 Cramp and spasm; Z79.899 Other long term (current) drug therapy; Z91.148 Patient's other noncompliance with medication regimen for other reason; F31.9 Bipolar disorder, unspecified; R10.22 Pelvic and perineal pain left side
CPT/HCPCS: 36415; 76801; 76817; 80053; 81001; 81025; 84484; 84702; 85025; 85610; 85730; 87086; 93005; 99284

== ENCOUNTER → 2025-05-16 16:36 | Outpatient (BNV) | payer OTHER, SELFPAY | PROVIDERS: Emergency Provider Emergency Medicine; Visit Provider Internal Medicine | DX: R42 Dizziness and giddiness (principal) | CPT/HCPCS: 93010 ==

== ENCOUNTER → 2025-05-16 17:18 | Outpatient (BNV) | payer OTHER, SELFPAY | PROVIDERS: Emergency Provider Emergency Medicine; Visit Provider Radiology Diagnostic Radiology | DX: O26.891 Other specified pregnancy related conditions, first trimester (principal); R55 Syncope and collapse; Z3A.01 Less than 8 weeks gestation of pregnancy | CPT/HCPCS: 76801; 76817 ==